=== PATIENT | female | born 1960 | race Caucasian/White ===

== ENCOUNTER → 2016-07-19 | Outpatient (CLI) | payer MEDICARE, MEDICAID | LOC: RAD 13:15 | PROVIDERS: ATTEND Internal Medicine | DX: R07.9 Chest pain, unspecified (principal); R91.8 Other nonspecific abnormal finding of lung field; R63.4 Abnormal weight loss; K59.00 Constipation, unspecified; K57.30 Diverticulosis of large intestine without perforation or abscess without bleeding | CPT/HCPCS: 71260; 74177 ==

== ENCOUNTER → 2016-08-13 | Outpatient (CLI) | payer MEDICARE, MEDICAID | LOC: RAD 15:27 | PROVIDERS: ATTEND Internal Medicine | DX: R91.1 Solitary pulmonary nodule (principal); D38.6 Neoplasm of uncertain behavior of respiratory organ, unspecified | CPT/HCPCS: 78815; A9552 ==

== ENCOUNTER 2017-01-11 12:07 | Emergency (ER) | payer MEDICARE, OTHER, MEDICAID ==
[2017-01-11] MEDS ORDERED: ONDANSETRON HCL INJ/PF 4 MG/2 ML SDV IV ONE (13:11)
[2017-01-11] MEDS ORDERED: LORAZEPAM INJ 2 MG/1 ML VIAL IV ONE (13:28)
--- NOTE | 2017-01-11 13:28 | RADIOLOGY REPORT (SQ) ---
EXAM DESCRIPTION: CHEST SINGLE VIEW COMPLETED DATE/TIME: 01/11/2017 12:55 pm REASON FOR STUDY: weakness, cp, recent mass removed from lung COMPARISON: CT 07/19/2016 chest x-ray 02/16/2015 EXAM PARAMETERS: NUMBER OF VIEWS: One view. TECHNIQUE: Single frontal radiographic view of the chest acquired. RADIATION DOSE: NA LIMITATIONS: None. FINDINGS: LUNGS AND PLEURA: There is slight haziness in the right base and the right hemidiaphragm i s indistinct. No mass. The nodules described on the CT scan are not evident on the radiograph. MEDIASTINUM AND HILAR STRUCTURES: An irregular, radiopaque foreign body is projected over the trachea at the level of the top of the aortic arch. HEART AND VASCULAR STRUCTURES: Heart normal in size. Normal vasculature. BONES: There is significant dextroscoliosis in the mid thoracic spine. HARDWARE: None in the chest. OTHER: No other significant finding. IMPRESSION: 1. An infiltrate, small pleural effusion, or atelectasis cannot be excluded in right lo wer chest. 2. Scoliosis. TECHNICAL DOCUMENTATION: JOB ID: [id number]
--- NOTE | 2017-01-11 13:28 | ER Document Report ---
ED Cardiac - General Chief Complaint: Chest Pain Stated Complaint: WEAKNESS Time Seen by Provider: 01/11/17 12:27 Mode of Arrival: Ambulatory Information source: Patient Notes: 56-year-old female who presents to the ER via EMS today for generalized weakness for chest pain today only. Patient had her right lower lobe of her lung removed on November 23 due to lung cancer but continues to smoke daily. Patient states that she has a history of anxiety and that "this feels like panic attack" but that she is no longer on her Xanax that her primary care provider was prescribing for her. She has been told to follow-up with pain management but has not done so yet. She currently is nothing for anxiety. She denies any calf pain or history of blood clots. She is not on chemotherapy. TRAVEL OUTSIDE OF THE [place] IN LAST 30 DAYS: No - Related Data Allergies/Adverse Reactions: No Known Allergies Allergy (Verified 08/26/15 16:33) Past Medical History - General Information source: Patient - Social History Smoking Status: Current Every Day Smoker Chew tobacco use (# tins/day): No Frequency of alcohol use: Occasional Drug Abuse: None Family History: Reviewed & Not Pertinent - Past Medical History Cardiac Medical History: Denies: Hx Congestive Heart Failure, Hx Coronary Artery Disease, Hx Heart Attack, Hx Hypertension, Hx Heart Murmur Pulmonary Medical History: Reports: Hx COPD Denies: Hx Asthma - I DONT KNOW, Hx Bronchitis, Hx Pneumonia, Hx Tuberculosis Neurological Medical History: Denies: Hx Cerebrovascular Accident, Hx Seizures GI Medical History: Reports: Hx Gastroesophageal Reflux Disease. Denies: Hx Hepatitis, Hx Hiatal Hernia, Hx Ulcer Musculoskeltal Medical History: Denies Hx Arthritis Psychiatric Medical History: Reports: Hx Anxiety, Hx Attention Deficit Hyperactivity Disorder Infectious Medical History: Denies: Hx Hepatitis Past Surgical History: Reports: Hx Appendectomy, Hx Hysterectomy. Denies: Hx Mastectomy, Hx Open Heart Surgery, Hx Pacemaker - Immunizations Hx Diphtheria, Pertussis, Tetanus Vaccination: Yes Review of Systems - Review of Systems Constitutional: No symptoms reported EENT: No symptoms reported Cardiovascular: See HPI Respiratory: See HPI Gastrointestinal: No symptoms reported Genitourinary: No symptoms reported Female Genitourinary: No symptoms reported Musculoskeletal: No symptoms reported Skin: No symptoms reported Hematologic/Lymphatic: No symptoms reported Neurological/Psychological: No symptoms reported Physical Exam - Vital signs Vitals: Resp Pulse Ox 17 100 01/11/17 12:28 01/11/17 12:28 - Notes Notes: PHYSICAL EXAMINATION: GENERAL: Incredibly anxious, in no acute distress. HEAD: Atraumatic, normocephalic. EYES: Pupils equal round and reactive to light, extraocular movements intact, sclera anicteric, conjunctiva are normal. Airway patent NECK: Normal range of motion, supple without lymphadenopathy LUNGS: CTAB and equal. No wheezes rales or rhonchi. HEART: Regular rate and rhythm without murmurs ABDOMEN: Soft, no tenderness. No guarding, no rebound BACK: no vertebral tenderness, normal ROM GI/: no CVA tenderness EXTREMITIES: Normal range of motion, no pitting edema. No cyanosis. NEUROLOGICAL: Cranial nerves grossly intact. Normal sensory/motor exams. PSYCH: very anxious SKIN: Warm, Dry, normal turgor, no rashes or lesions noted Course - Re-evaluation Re-evalutation: 01/11/17 14:46 Feels better after Ativan. Lab work is unremarkable today including a normal chest x-ray, normal cardiac enzymes, EKG revealing normal sinus rhythm at a rate of 63 bpm with no evidence of ischemia. I believe that the patient's anxiety. I have advised to follow-up with her primary care provider. - Vital Signs Vital signs: Temp Pulse Resp BP Pulse Ox 16 116/91 H 98 01/11/17 13:12 01/11/17 12:32 01/11/17 13:12 - Laboratory Result Diagrams: 01/11/17 13:37 01/11/17 13:37 Laboratory results interpreted by me: 01/11/17 01/11/17 01/11/17 13:10 13:37 13:37 APTT 38.6 H Chloride 111 H Carbon Dioxide 21 L AST 13 L Urine Ketones 20 H Discharge - Discharge Clinical Impression: Anxiety Chest pain Qualifiers: Chest pain type: unspecified Qualified Code(s): R07.9 - Chest pain, unspecified Condition: Stable Disposition: HOME, SELF-CARE Additional Instructions: Return immediately for any new or worsening symptoms. Follow up with primary care provider, call tomorrow to make followup appointment. Prescriptions: Hydroxyzine HCl [Atarax 50 mg Tablet] 50 mg PO Q8 PRN #30 tablet PRN Reason:
[2017-01-11 13:37] LABS: APPEARANCE,URINE CLEAR; BILIRUBIN,URINE NEGATIVE (NEGATIVE); GLUCOSE, URINE NEGATIVE (NEGATIVE); KETONES,URINE 20 mg/dL (NEGATIVE); LEUKOCYTE ESTERASE,URINE NEGATIVE (NEGATIVE); NITRITE,URINE NEGATIVE (NEGATIVE); PROTEIN,URINE NEGATIVE (NEGATIVE); URINE SPECIFIC GRAVITY 1.012; UROBILINOGEN,URINE NEGATIVE mg/dL (<2.0)
[2017-01-11 13:45] LABS: ABSOLUTE BASOPHILS # (AUTO) 0.1 10^3/uL (0.0-0.2); ABSOLUTE LYMPHOCYTES (AUTO) 1.6 10^3/uL (0.5-4.7); ABSOLUTE MONOCYTES (AUTO) 0.5 10^3/uL (0.1-1.4); ABSOLUTE NEUT (AUTO) 5.5 10^3/uL (1.7-8.2); BASOPHILS % (AUTO) 0.9 % (0-2); EOSINOPHILS % (AUTO) 0.4 % (0-6); HEMATOCRIT 37.2 % (36.0-47.0); HEMOGLOBIN 12.6 g/dL (12.0-15.5); HGB HCT DIFFERENCE 0.6; LYMPHOCYTES % (AUTO) 21.3 % (13-45); MEAN CORPUSCULAR HEMOGLOBIN 29.3 pg (27.0-33.4); MEAN CORPUSCULAR HGB CONC 33.8 g/dL (32.0-36.0); MEAN CORPUSCULAR VOLUME 87 fl (80-97); RED BLOOD COUNT 4.28 10^6/uL (3.72-5.28); RED CELL DISTRIBUTION WIDTH 13.8 % (11.5-14.0); SEGMENTED NEUTROPHILS % (AUTO) 71.4 % (42-78); WHITE BLOOD COUNT 7.6 10^3/uL (4.0-10.5)
[2017-01-11 13:53] LABS: PROTHROMBIN TIME 13.7 SEC (11.4-15.4)
[2017-01-11 13:54] LABS: PARTIAL THROMBOPLASTIN TIME 38.6 SEC (23.5-35.8)
[2017-01-11 14:00] LABS: ALANINE AMINOTRANSFERASE 19 U/L (9-52); ALBUMIN 3.9 g/dL (3.5-5.0); ALKALINE PHOSPHATASE 97 U/L (38-126); ANION GAP 10 (5-19); ASPARTATE AMINO TRANSFERASE 13 U/L (14-36); BILIRUBIN,DIRECT 0.3 mg/dL (0.0-0.4); BILIRUBIN,TOTAL 0.7 mg/dL (0.2-1.3); BLOOD UREA NITROGEN 8 mg/dL (7-20); CALCIUM 8.9 mg/dL (8.4-10.2); CARBON DIOXIDE 21 mmol/L (22-30); CHLORIDE 111 mmol/L (98-107); CREATINE KINASE 41 U/L (30-135); CREATININE RESULT 0.52 mg/dL (0.52-1.25); GLUCOSE 104 mg/dL (75-110); POTASSIUM 3.9 mmol/L (3.6-5.0); SODIUM 141.6 mmol/L (137-145); TOTAL PROTEIN 6.8 g/dL (6.3-8.2)
[2017-01-11 14:12] LABS: CREATINE KINASE MB 0.67 ng/mL (<4.55); TROPONIN I < 0.012 ng/mL
[2017-01-11] MEDS ORDERED: ALPRAZOLAM 0.5 MG TABLET PO ONE (14:55)
[2017-01-11] MEDS ORDERED: PROMETHAZINE HCL 25 MG TABLET PO ONE (15:14)
[2017-01-11 16:02] VITALS: BP 135/77
[2017-01-11 16:52] LABS: URINE BARBITURATES SCREEN NEGATIVE; URINE METHADONE SCREEN NEGATIVE; URINE OPIATES LOW NEGATIVE; URINE PHENCYCLIDINE SCREEN NEGATIVE
--- NOTE | 2017-01-11 19:53 | EKG REPORT ---
SEVERITY:- NORMAL ECG - SINUS RHYTHM : Confirmed by: Pippa Stephens 11-Jan-2017 19:53:02
== END 2017-01-11 16:02 | disposition home or self-care (01) ==
LOC: ER 12:07
DX: F41.9 Anxiety disorder, unspecified (principal); R07.9 Chest pain, unspecified; R53.1 Weakness; J44.9 Chronic obstructive pulmonary disease, unspecified; F17.200 Nicotine dependence, unspecified, uncomplicated; Z85.118 Personal history of other malignant neoplasm of bronchus and lung; Z90.2 Acquired absence of lung [part of]
CPT/HCPCS: 93005; 99285; 96374; 96375; 36415; 82553; 80307 ×2; 82550; 85025; 85610; 85730; 80053; 81001; 84484; 71010; 93010; A9270 ×2; J2060; J2405

== ENCOUNTER → 2017-02-22 | Outpatient (CLI) | payer MEDICARE, MEDICAID ==
[2017-02-22 18:12] LABS: ABSOLUTE BASOPHILS # (AUTO) 0.1 10^3/uL (0.0-0.2); ABSOLUTE EOSINOPHILS # (AUTO) 0.2 10^3/uL (0.0-0.6); ABSOLUTE LYMPHOCYTES (AUTO) 3.4 10^3/uL (0.5-4.7); ABSOLUTE MONOCYTES (AUTO) 0.5 10^3/uL (0.1-1.4); ABSOLUTE NEUT (AUTO) 4.1 10^3/uL (1.7-8.2); BASOPHILS % (AUTO) 0.8 % (0-2); EOSINOPHILS % (AUTO) 2.5 % (0-6); HEMATOCRIT 36.9 % (36.0-47.0); HEMOGLOBIN 12.7 g/dL (12.0-15.5); HGB HCT DIFFERENCE 1.2; LYMPHOCYTES % (AUTO) 41.3 % (13-45); MEAN CORPUSCULAR HEMOGLOBIN 29.6 pg (27.0-33.4); MEAN CORPUSCULAR HGB CONC 34.5 g/dL (32.0-36.0); MEAN CORPUSCULAR VOLUME 86 fl (80-97); MONOCYTES % (AUTO) 6.4 % (3-13); RED CELL DISTRIBUTION WIDTH 14.5 % (11.5-14.0); WHITE BLOOD COUNT 8.3 10^3/uL (4.0-10.5)
[2017-02-22 19:01] LABS: THYROID STIMULATING HORMONE 0.11 uIU/mL (0.47-4.68)
== END ==
LOC: OD 17:31
PROVIDERS: ATTEND Internal Medicine
DX: E03.9 Hypothyroidism, unspecified (principal)
CPT/HCPCS: 36415; 84439; 84443; 85025

== ENCOUNTER 2017-02-28 13:45 | Emergency (ER) | payer MEDICARE, MEDICAID ==
[2017-02-28] MEDS ORDERED: DIPH/PERTUSS(ACELL)/TETANUS VAC/PF 0.5 ML SYR (>=10YO) IM ONE (14:07)
[2017-02-28] MEDS ORDERED: HYDROCODONE/ACETAMINOPHEN 5-325 MG TABLET PO ONE (14:07)
--- NOTE | 2017-02-28 14:07 | ER Document Report ---
ED General - General Stated Complaint: MOUTH INJURY Time Seen by Provider: 02/28/17 14:06 Mode of Arrival: Ambulatory Information source: Patient Notes: 56 yr old female who stepped on a garden tool bare foot and had the prongs in her foot then the handle hit her in the face last night TRAVEL OUTSIDE OF THE [place] IN LAST 30 DAYS: No - HPI Onset: Yesterday Onset/Duration: Sudden Quality of pain: Achy Severity: Mild Pain Level: 1 Associated symptoms: None Exacerbated by: Denies Relieved by: Denies Similar symptoms previously: No Recently seen / treated by doctor: Yes - sent in by urgent - Related Data Allergies/Adverse Reactions: No Known Allergies Allergy (Verified 08/26/15 16:33) Past Medical History - Social History Smoking Status: Current Every Day Smoker Cigarette use (# per day): Yes Chew tobacco use (# tins/day): No Smoking Education Provided: No Family History: Reviewed & Not Pertinent - Past Medical History Cardiac Medical History: Denies: Hx Congestive Heart Failure, Hx Coronary Artery Disease, Hx Heart Attack, Hx Hypertension, Hx Heart Murmur Pulmonary Medical History: Reports: Hx COPD Denies: Hx Asthma - I DONT KNOW, Hx Bronchitis, Hx Pneumonia, Hx Tuberculosis Neurological Medical History: Denies: Hx Cerebrovascular Accident, Hx Seizures GI Medical History: Reports: Hx Gastroesophageal Reflux Disease. Denies: Hx Hepatitis, Hx Hiatal Hernia, Hx Ulcer Musculoskeltal Medical History: Denies Hx Arthritis Psychiatric Medical History: Reports: Hx Anxiety, Hx Attention Deficit Hyperactivity Disorder Infectious Medical History: Denies: Hx Hepatitis Past Surgical History: Reports: Hx Appendectomy, Hx Hysterectomy. Denies: Hx Mastectomy, Hx Open Heart Surgery, Hx Pacemaker - Immunizations Hx Diphtheria, Pertussis, Tetanus Vaccination: Yes Review of Systems - Review of Systems Notes: REVIEW OF SYSTEMS: CONSTITUTIONAL : Denies fever, chills, or sweats. Denies recent illness. EENT: Denies eye, ear, throat, or mouth pain or symptoms. Denies nasal or sinus congestion or discharge. Denies throat, tongue, or mouth swelling or difficulty swallowing. CARDIOVASCULAR: Denies chest pain. Denies palpitations or racing or irregular heart beat. Denies ankle edema. RESPIRATORY: Denies cough, cold, or chest congestion. Denies shortness of breath, difficulty breathing, or wheezing. GASTROINTESTINAL: Denies abdominal pain or distention. Denies nausea, vomiting , or diarrhea. Denies blood in vomitus, stools, or per rectum. Denies black, tarry stools. Denies constipation. GENITOURINARY: Denies difficulty urinating, painful urination, burning, frequency, blood in urine, or discharge. FEMALE GENITOURINARY: Denies vaginal bleeding, heavy or abnormal periods, irregular periods. Denies vaginal discharge or odor. MUSCULOSKELETAL: Denies back or neck pain or stiffness. Denies joint pain or swelling. SKIN: admits to puncture to the foot HEMATOLOGIC : Denies easy bruising or bleeding. LYMPHATIC: Denies swollen, enlarged glands. NEUROLOGICAL: Denies confusion or altered mental status. Denies passing out or loss of consciousness. Denies dizziness or lightheadedness. Denies headache. Denies weakness or paralysis or loss of use of either side. Denies problems with gait or speech. Denies sensory loss, numbness, or tingling. Denies seizures. PSYCHIATRIC: Denies anxiety or stress. Denies depression, suicidal ideation, or homicidal ideation. ALL OTHER SYSTEMS REVIEWED AND NEGATIVE. PHYSICAL EXAMINATION: GENERAL: Well-appearing, well-nourished and in no acute distress. HEAD: Atraumatic, normocephalic. EYES: Pupils equal round and reactive to light, extraocular movements intact, conjunctiva are normal. ENT: no dental trauma . NECK: Normal range of motion, supple without lymphadenopathy LUNGS: Breath sounds clear to auscultation bilaterally and equal. No wheezes rales or rhonchi. HEART: Regular rate and rhythm without murmurs ABDOMEN: Soft, nontender, nondistended abdomen. No guarding, no rebound. No masses appreciated. Female : deferred Musculoskeletal: Normal range of motion, no pitting or edema. No cyanosis. NEUROLOGICAL: Cranial nerves grossly intact. Normal speech, normal gait. Normal sensory, motor exams PSYCH: Normal mood, normal affect. SKIN: 3 small puncture wounds 1 day old of the foot , contusion to the bottom lip and upper lip, no laceration noted Dictation was performed using [employer] recognition software Course - Re-evaluation Re-evalutation: 02/28/17 14:15 Physical examination noted no significant abnormality except for superficial contusions and puncture wounds, tetanus will be updated patient will be started on antibiotics given the multiple punctures. She does not require any repairs or imaging at this time Tetanus will be updated patient will be discharged home After performing a Medical Screening Examination, I estimate there is LOW risk for OPEN FRACTURE, COMPARTMENT SYNDROME, TENDON RUPTURE, ACUTE NEUROVASCULAR INJURY, or RETAINED FOREIGN BODY, thus I consider the discharge disposition reasonable. Also, there is no evidence or peritonitis, sepsis, or toxicity. I have reevaluated this patient multiple times and no significant life threatening changes are noted. The patient and I have discussed the diagnosis and risks, and we agree with discharging home with close follow-up with the understanding that symptoms and presentations can change. We also discussed returning to the Emergency Department immediately if new or worsening symptoms occur. We have discussed the symptoms which are most concerning (e.g., changing or worsening pain, fever, numbness, weakness, cool or painful digits) that necessitate immediate return. Discharge - Discharge Clinical Impression: Facial injury Qualifiers: Encounter type: initial encounter Qualified Code(s): S09.93XA - Unspecified injury of face, initial encounter Puncture wound of foot Qualifiers: Encounter type: initial encounter Laterality: right Qualified Code(s): S91.331A - Puncture wound without foreign body, right foot, initial encounter Condition: Stable Disposition: HOME, SELF-CARE Instructions: Puncture Wound ([facility]) Additional Instructions: Follow up with your physician tomorrow for further care or return to the ED IMMEDIATELY if symptoms worsen or new concerns occur. If you cannot afford to follow up with your primary care physician a list of low cost clinics have been provided at the end of your discharge papers as well. Prescriptions: Cephalexin Monohydrate [Keflex 500 mg Capsule] 500 mg PO QID #40 capsule Hydrocodone/Acetaminophen [Vanlue 5-325 mg Tablet] 1 tab PO Q6 #10 tablet
[2017-02-28 14:18] VITALS: BP 122/47
== END 2017-02-28 14:36 | disposition home or self-care (01) ==
LOC: ER 13:45
DX: S91.331A Puncture wound without foreign body, right foot, initial encounter (principal); S00.531A Contusion of lip, initial encounter; W27.8XXA Contact with other nonpowered hand tool, initial encounter; F17.210 Nicotine dependence, cigarettes, uncomplicated; J44.9 Chronic obstructive pulmonary disease, unspecified; Z23 Encounter for immunization
CPT/HCPCS: 99282; 90471; 90715; A9270

== ENCOUNTER 2017-10-31 11:00 | Day surgery (SDC) | payer MEDICARE, MEDICAID ==
[~2017-10-31 11:00] MED LIST: PROPOFOL INJ 200 MG/20 ML VIAL IV ONE
[2017-10-31] MEDS ORDERED: ONABOTULINUMTOXINA INJ/PF 100 UNIT SDV IM ONE ×2 (12:00)
[2017-10-31 12:42] VITALS: BP 107/60
--- NOTE | 2017-10-31 13:24 | Operative Report ---
Operative Report DATE OF SURGERY: 10/31/17 Operative Report: The risks benefits and alternatives of the procedure explained to the patient in detail and informed consent is obtained.A GIF Olympus video scope was inserted into the patient's mouth and hypopharynx ,the esophagus is identified intubated and insufflated, the scope was then advanced through the esophagus stomach and duodenum, retroflexion maneuver is done ,the esophagus stomach and first and second portions of the duodenum examined PREOPERATIVE DIAGNOSIS: Nausea vomiting, gastroparesis POSTOPERATIVE DIAGNOSIS: Severe erosive esophagitis. Gastritis status post biopsy. Hiatal hernia. Lack of peristalsis in the stomach with residual food material status post Botox injection at the gastric outlet OPERATION: EGD with submucosal injection of Botox. EGD with biopsy to rule out Helicobacter pylori SURGEON: EVY BALBUENA ANESTHESIA: LMAC TISSUE REMOVED OR ALTERED: As noted above. COMPLICATIONS: None. ESTIMATED BLOOD LOSS: None. INTRAOPERATIVE FINDINGS: As noted above. PROCEDURE: Patient tolerated the procedure well. No immediate postprocedure complications are noted. Patient discharged in good condition. Discharge date 10/31/2017. Discharge diet: Regular. Discharge activity: Regular. 2-3 week follow-up to discuss findings. We will wait on biopsies. Patient is instructed call the office or proceed to the emergency room should there be any further problems or questions.
== END 2017-10-31 12:28 | disposition home or self-care (01) ==
LOC: END 11:00
PROVIDERS: ATTEND Internal Medicine Gastroenterology
DX: K92.1 Melena (principal); K29.50 Unspecified chronic gastritis without bleeding; K44.9 Diaphragmatic hernia without obstruction or gangrene; K20.9 Esophagitis, unspecified; K31.84 Gastroparesis; R63.4 Abnormal weight loss; F17.210 Nicotine dependence, cigarettes, uncomplicated; Z79.899 Other long term (current) drug therapy; Z68.1 Body mass index [BMI] 19.9 or less, adult
CPT/HCPCS: 43236; 43239; 88305 ×2; J2704; J0585; 731

== ENCOUNTER → 2017-11-23 | Outpatient (CLI) | payer MEDICARE, MEDICAID ==
--- NOTE | 2017-11-23 17:21 | RADIOLOGY REPORT (SQ) ---
EXAM DESCRIPTION: CHEST 2 VIEWS COMPLETED DATE/TIME: 11/23/2017 5:10 pm REASON FOR STUDY: MRI SCREENING FB COMPARISON: 02/16/2015, 01/11/2017 EXAM PARAMETERS: NUMBER OF VIEWS: two views TECHNIQUE: Digital Frontal and Lateral radiographic views of the chest acquired. RADIATION DOSE: NA LIMITATIONS: none FINDINGS: LUNGS AND PLEURA: Surgical milvia post partial resection right lower lobe. There is trac e right pleural fluid or pleural thickening in the lateral and posterior costophrenic sulcus. Lungs are free of focal infiltrates. No pneumothorax. MEDIASTINUM AND HILAR STRUCTURES: No masses or contour abnormalities. HEART AND VASCULAR STRUCTURES: Heart normal size. No evidence for failure. BONES: Profound scoliosis convex rightward thoracic HARDWARE: There are lung parenchymal milvia along the right lung base. There is a 5 x 3 mm metallic foreign body in the upper mediastinum which is new compared to 2014 and unchanged compared to 2016. This is of unknown composition. MRI was canceled today. OTHER: No other significant finding. IMPRESSION: Postsurgical changes right hemithorax. There is a metallic foreign body in the upper me diastinum which is of unknown metallic composition. No MRI was performed today. TECHNICAL DOCUMENTATION: JOB ID: [id number] [employer]- All Rights Reserved Reading location - IP/workstation name: [email or web address]
== END ==
LOC: RAD 17:00
PROVIDERS: ATTEND Anesthesiology
DX: M79.5 Residual foreign body in soft tissue (principal); M41.84 Other forms of scoliosis, thoracic region
CPT/HCPCS: 71046

== ENCOUNTER 2017-11-28 11:00 | Day surgery (SDC) | payer MEDICARE, MEDICAID ==
[2017-11-28] MEDS ORDERED: PROPOFOL INJ 200 MG/20 ML VIAL IV ONE (11:40)
--- NOTE | 2017-11-28 11:57 | Operative Report ---
Operative Report DATE OF SURGERY: 11/28/17 Operative Report: The risks, benefits and alternatives of the procedure including risks of bleeding, perforation requiring surgery are explained to the patient in detail and informed consent is obtained. Patient is brought back to the endoscopy suite and placed in the left, lateral decubital position. Timeout was called. Propofol medications administered. A rectal examination is done which did not reveal any masses, tears or fissures. An Olympus videoscope was inserted into the patient's rectum. The scope was then carefully advanced all the way to the cecum. The cecum was identified by the usual anatomical landmarks including the ileocecal valve as well as the appendiceal office. I intubated the terminal ileum for confirmation. The scope was then sequentially pulled back via the various segments of the colon including the ascending colon, hepatic flexure, transverse colon, splenic flexure, descending colon and finally into the rectosigmoid portions of the colon. Prep is good. Retroflexion maneuver is performed. PREOPERATIVE DIAGNOSIS: Weight loss, colorectal cancer screening POSTOPERATIVE DIAGNOSIS: 3 polyps. 2 in the proximal transverse colon. One was ablated in situ the other removed via snare polypectomy and tissue was able to be retrieved. The third polyp was noted in the area of the sigmoid and removed via snare polypectomy and retrieved. Diverticulosis. Internal hemorrhoids OPERATION: Colonoscopy with snare polypectomy SURGEON: EVY BALBUENA ANESTHESIA: LMAC TISSUE REMOVED OR ALTERED: As noted above. COMPLICATIONS: None. ESTIMATED BLOOD LOSS: None. INTRAOPERATIVE FINDINGS: As noted above. PROCEDURE: Patient tolerated the procedure well. No immediate postprocedure complications are noted. Patient discharged in good condition. Discharge date 11/28/2017. Discharge diet: Regular. Discharge activity: Regular. 2-3 week follow-up to discuss findings. Patient is instructed to call the office or proceed to the emergency room should there be any further problems or questions. We will wait on pathology. 3-5 year surveillance colonoscopy.
[2017-11-28 12:24] VITALS: BP 138/93
== END 2017-11-28 12:22 | disposition home or self-care (01) ==
LOC: END 11:00
PROVIDERS: ATTEND Internal Medicine Gastroenterology
DX: D12.3 Benign neoplasm of transverse colon (principal); D12.5 Benign neoplasm of sigmoid colon; K31.84 Gastroparesis; R63.4 Abnormal weight loss; F41.1 Generalized anxiety disorder; F33.9 Major depressive disorder, recurrent, unspecified; Z87.891 Personal history of nicotine dependence; Z79.891 Long term (current) use of opiate analgesic; Z79.899 Other long term (current) drug therapy; Z68.1 Body mass index [BMI] 19.9 or less, adult
CPT/HCPCS: 45385; 88305 ×2; J2704; 811

== ENCOUNTER → 2017-12-19 | Outpatient (CLI) | payer MEDICARE, MEDICAID ==
--- NOTE | 2017-12-19 16:34 | RADIOLOGY REPORT (SQ) ---
EXAM DESCRIPTION: CT CERVICAL SPINE WITHOUT COMPLETED DATE/TIME: 12/19/2017 3:54 pm REASON FOR STUDY: RADICULOPATHY,CERVICAL REGION M54.12 RADICULOPATHY, CERVICAL REGION COMPARISON: None. TECHNIQUE: Axial images acquired through the cervical spine without intravenous contrast. Images re viewed with lung, soft tissue and bone windows. Reconstructed coronal and sagittal MPR images review ed. Images stored on PACS. All CT scanners at this facility use dose modulation, iterative reconstruction, and/or weight based d osing when appropriate to reduce radiation dose to as low as reasonably achievable (ALARA). [facility]: Dose Right [facility]: CareDose [facility]: Dose Right [facility]: Teradose 4D [facility]: [employer] RADIATION DOSE: CT Rad equipment meets quality standard of care and radiation dose reduction techniq ues were employed. CTDIvol: 11.0 mGy. DLP: 262 mGy-cm. mGy. LIMITATIONS: None. FINDINGS: ALIGNMENT: Anatomic. MINERALIZATION: Normal. VERTEBRAL BODIES: No fractures or dislocation. DISCS: Degenerative disc disease C4-5, C5-6, C6-7 with uncovertebral osteophytes and disc space narro wing. FACETS, LATERAL MASSES, POSTERIOR ELEMENTS: No fractures. No dislocation. No acute findings. HARDWARE: None in the spine. VISUALIZED RIBS: No fractures. LUNG APICES AND SOFT TISSUES: No significant or acute findings. OTHER: No other significant finding. IMPRESSION: Multilevel degenerative disc disease with uncovertebral osteophytes and disc space narro wing. TECHNICAL DOCUMENTATION: JOB ID: [id number] Quality ID # [id number]: Final reports with documentation of one or more dose reduction techniques (e.g., Au tomated exposure control, adjustment of the mA and/or kV according to patient size, use of iterative reconstruction technique) 2010 [employer]- All Rights Reserved Reading location - IP/workstation name: [email or web address]
== END ==
LOC: RAD 15:46
PROVIDERS: ATTEND Anesthesiology
DX: M50.123 Cervical disc disorder at C6-C7 level with radiculopathy (principal)
CPT/HCPCS: 72125

== ENCOUNTER 2018-06-26 15:48 | Emergency (ER) | payer MEDICARE, MEDICAID ==
[2018-06-26] MEDS ORDERED: ONDANSETRON HCL INJ/PF 4 MG/2 ML SDV IV ONE (16:13)
[2018-06-26] MEDS ORDERED: NORMAL SALINE 1000 ML 1,000 ML IV ONE (16:13)
--- NOTE | 2018-06-26 16:16 | ER Document Report ---
ED Medical Screen (RME) - General Chief Complaint: General Weakness Stated Complaint: VOMITING/DIZZINESS Time Seen by Provider: 06/26/18 16:05 TRAVEL OUTSIDE OF THE [place] IN LAST 30 DAYS: No - HPI Notes: 06/26/18 16:13 Patient is a 57-year-old female that presents to the emergency department for chief complaint of malaise nausea and vomiting. Patient reports increased fatigue over the past few days. She states since having lung cancer surgery last year she has had weight loss, increased fatigue and episodes of nausea and vomiting. She states that it seems to be getting worse. She denies any fever, chills. She does endorse some mild urinary frequency but denies dysuria. She had some mild diffuse abdominal cramping yesterday which has now resolved. She denies any diarrhea, cough and chest pain.. ROS: GENERAL: Denies fever of chills CV: Denies chest pain PHYSICAL EXAMINATION: GENERAL: Well-appearing, well-nourished and in no acute distress. HEAD: Atraumatic, normocephalic. EYES: Pupils equal round extraocular movements intact, conjunctiva are normal. ENT: Nares patent NECK: Normal range of motion LUNGS: No respiratory distress Musculoskeletal: Normal range of motion NEUROLOGICAL: Normal speech, normal gait. PSYCH: Normal mood, normal affect. MDM: Patient seen and examined for rapid initial assessment. Vital signs reviewed. A comprehensive ED assessment and evaluation of the patient, analysis of test results and completion of the medical decision making process will be conducted by additional ED providers. - Related Data Allergies/Adverse Reactions: No Known Allergies Allergy (Verified 11/28/17 11:07) Past Medical History - Social History Frequency of alcohol use: None Drug Abuse: None - Past Medical History Cardiac Medical History: Denies: Hx Congestive Heart Failure, Hx Coronary Artery Disease, Hx Heart Attack, Hx Hypertension, Hx Heart Murmur Pulmonary Medical History: Reports: Hx COPD Denies: Hx Asthma, Hx Bronchitis, Hx Pneumonia, Hx Tuberculosis Neurological Medical History: Denies: Hx Cerebrovascular Accident, Hx Seizures Renal/ Medical History: Denies: Hx Peritoneal Dialysis GI Medical History: Reports: Hx Gastroesophageal Reflux Disease. Denies: Hx Hepatitis, Hx Hiatal Hernia, Hx Ulcer Musculoskeltal Medical History: Reports Hx Arthritis - OSTEO Psychiatric Medical History: Reports: Hx Anxiety, Hx Attention Deficit Hyperactivity Disorder Infectious Medical History: Denies: Hx Hepatitis Past Surgical History: Reports: Hx Appendectomy, Hx Hysterectomy. Denies: Hx Mastectomy, Hx Open Heart Surgery, Hx Pacemaker - Immunizations Hx Diphtheria, Pertussis, Tetanus Vaccination: Yes Physical Exam - Vital signs Vitals: Temp Pulse Resp BP Pulse Ox 97.9 F 105 H 18 115/89 H 98 06/26/18 15:55 06/26/18 15:55 06/26/18 15:55 06/26/18 15:55 06/26/18 15:55 Course - Vital Signs Vital signs: Temp Pulse Resp BP Pulse Ox 97.9 F 105 H 18 115/89 H 98 06/26/18 15:55 06/26/18 15:55 06/26/18 15:55 06/26/18 15:55 06/26/18 15:55 Doctor's Discharge - Discharge Referrals: CHANDRA SHAW MD [Primary Care Provider] - Follow up as needed
[2018-06-26 17:02] LABS: ABSOLUTE BASOPHILS # (AUTO) 0.1 10^3/uL (0.0-0.2); ABSOLUTE EOSINOPHILS # (AUTO) 0.2 10^3/uL (0.0-0.6); ABSOLUTE LYMPHOCYTES (AUTO) 1.8 10^3/uL (0.5-4.7); ABSOLUTE MONOCYTES (AUTO) 0.6 10^3/uL (0.1-1.4); ABSOLUTE NEUT (AUTO) 3.6 10^3/uL (1.7-8.2); BASOPHILS % (AUTO) 0.9 % (0-2); EOSINOPHILS % (AUTO) 2.8 % (0-6); HEMOGLOBIN 12.5 g/dL (12.0-15.5); LYMPHOCYTES % (AUTO) 28.7 % (13-45); MEAN CORPUSCULAR HEMOGLOBIN 26.1 pg (27.0-33.4); MEAN CORPUSCULAR HGB CONC 33.9 g/dL (32.0-36.0); MEAN CORPUSCULAR VOLUME 77 fl (80-97); MONOCYTES % (AUTO) 9.7 % (3-13); PLATELET COUNT 374 10^3/uL (150-450); RED BLOOD COUNT 4.81 10^6/uL (3.72-5.28); RED CELL DISTRIBUTION WIDTH 16.8 % (11.5-14.0); SEGMENTED NEUTROPHILS % (AUTO) 57.9 % (42-78); TOTAL CELLS COUNTED % (AUTO) 100 %; WHITE BLOOD COUNT 6.3 10^3/uL (4.0-10.5)
[2018-06-26 17:21] LABS: ALANINE AMINOTRANSFERASE 9 U/L (9-52); ALBUMIN 4.5 g/dL (3.5-5.0); ALKALINE PHOSPHATASE 81 U/L (38-126); ANION GAP 9 (5-19); ASPARTATE AMINO TRANSFERASE 17 U/L (14-36); BILIRUBIN,DIRECT 0.3 mg/dL (0.0-0.4); BILIRUBIN,TOTAL 0.4 mg/dL (0.2-1.3); BLOOD UREA NITROGEN 15 mg/dL (7-20); CALCIUM 10.3 mg/dL (8.4-10.2); CARBON DIOXIDE 27 mmol/L (22-30); CHLORIDE 103 mmol/L (98-107); GLUCOSE 113 mg/dL (75-110); LIPASE 60.3 U/L (23-300); POTASSIUM 4.6 mmol/L (3.6-5.0); SODIUM 138.9 mmol/L (137-145); TOTAL PROTEIN 7.3 g/dL (6.3-8.2)
[2018-06-26 17:42] LABS: APPEARANCE,URINE SLIGHTLY-CLOUDY; BILIRUBIN,URINE MODERATE (NEGATIVE); COLOR,URINE AMBER; GLUCOSE, URINE NEGATIVE (NEGATIVE); KETONES,URINE TRACE mg/dL (NEGATIVE); LEUKOCYTE ESTERASE,URINE NEGATIVE (NEGATIVE); NITRITE,URINE NEGATIVE (NEGATIVE); PROTEIN,URINE 30 mg/dL (NEGATIVE); URINE SPECIFIC GRAVITY 1.035
[2018-06-26 18:10] VITALS: BP 102/57
[2018-06-26] MEDS ORDERED: SUCRALFATE 1 GM TABLET PO ONE (19:18)
[2018-06-26] MEDS ORDERED: FAMOTIDINE 20 MG TABLET PO ONE (19:18)
[2018-06-26] MEDS ORDERED: ONDANSETRON ODT 4 MG TAB (6 TAB/ER DISP) PO PRN (19:18)
--- NOTE | 2018-06-26 19:24 | ER Document Report ---
ED General - General Chief Complaint: General Weakness Stated Complaint: VOMITING/DIZZINESS Time Seen by Provider: 06/26/18 16:05 Notes: Patient is a 57-year-old female with a past medical history of a prior right lower lobectomy due to localized lung malignancy who presents with concerns of approximately 2 years of anorexia, nausea, difficulty tolerating oral intake and vomiting. Patient notes associated weight loss. States that she has been following with her doctors but not getting any answers or solutions to the symptoms. Nothing is new that prompted her to come to the emergency department today. She does however state that she feels like her symptoms have been getting worse over time. Patient states that she is tired of feeling so ill all the time. She denies any focal abdominal pain. No chest pain or shortness of breath. No fever. She has not had a PET scan since initial diagnosis of the beginning of 2016. She is not currently on any form of chemotherapy or radiation. TRAVEL OUTSIDE OF THE [place] IN LAST 30 DAYS: No - Related Data Allergies/Adverse Reactions: No Known Allergies Allergy (Verified 11/28/17 11:07) Past Medical History - General Information source: Patient - Social History Smoking Status: Current Every Day Smoker Frequency of alcohol use: None Drug Abuse: None Lives with: Family Family History: Reviewed & Not Pertinent Patient has suicidal ideation: No Patient has homicidal ideation: No - Past Medical History Cardiac Medical History: Denies: Hx Congestive Heart Failure, Hx Coronary Artery Disease, Hx Heart Attack, Hx Hypertension, Hx Heart Murmur Pulmonary Medical History: Reports: Hx COPD Denies: Hx Asthma, Hx Bronchitis, Hx Pneumonia, Hx Tuberculosis Neurological Medical History: Denies: Hx Cerebrovascular Accident, Hx Seizures Renal/ Medical History: Denies: Hx Peritoneal Dialysis GI Medical History: Reports: Hx Gastroesophageal Reflux Disease. Denies: Hx Hepatitis, Hx Hiatal Hernia, Hx Ulcer Musculoskeletal Medical History: Reports Hx Arthritis - OSTEO Psychiatric Medical History: Reports: Hx Anxiety, Hx Attention Deficit Hyperactivity Disorder Infectious Medical History: Denies: Hx Hepatitis Past Surgical History: Reports: Hx Appendectomy, Hx Hysterectomy. Denies: Hx Mastectomy, Hx Open Heart Surgery, Hx Pacemaker - Immunizations Hx Diphtheria, Pertussis, Tetanus Vaccination: Yes Review of Systems - Review of Systems Notes: Constitutional: Negative for fever. Positive for weight loss HENT: Negative for sore throat. Eyes: Negative for visual changes. Cardiovascular: Negative for chest pain. Respiratory: Negative for shortness of breath. Gastrointestinal: Positive for nausea, vomiting Genitourinary: Negative for dysuria. Musculoskeletal: Negative for back pain. Skin: Negative for rash. Neurological: Negative for headaches, weakness or numbness. 10 point ROS negative except as marked above and in HPI. Physical Exam - Vital signs Vitals: Temp Pulse Resp BP Pulse Ox 97.9 F 105 H 18 115/89 H 98 06/26/18 15:55 06/26/18 15:55 06/26/18 15:55 06/26/18 15:55 06/26/18 15:55 Interpretation: Tachycardic Notes: PHYSICAL EXAMINATION: GENERAL: Emaciated but in no acute distress HEAD: Atraumatic, normocephalic. EYES: Pupils equal round and reactive to light, extraocular movements intact, sclera anicteric, conjunctiva are normal. ENT: nares patent, oropharynx clear without exudates. Moist mucous membranes. NECK: Normal range of motion, supple without lymphadenopathy LUNGS: Breath sounds clear to auscultation bilaterally and equal. No wheezes rales or rhonchi. HEART: Regular rate and rhythm without murmurs ABDOMEN: Soft, nontender, normoactive bowel sounds. No guarding, no rebound. No masses appreciated. EXTREMITIES: Normal range of motion, no pitting or edema. No cyanosis. NEUROLOGICAL: No focal neurological deficits. Moves all extremities spontaneously and on command. PSYCH: Moderately anxious, tearful SKIN: Warm, Dry, normal turgor, no rashes or lesions noted. Course - Re-evaluation Re-evalutation: 06/26/18 19:19 Patient presents with long-standing nausea, vomiting, difficulty maintaining food intake for at least the past 2 years with associated significant weight loss approximately 22 kg since 2016. The patient states that this all started after having surgery in 2017 when she had a partial lobectomy on the right side at [facility]. She states that she has been told that she has no metastatic disease. Has had multiple scopes with dilations without relief. Here today, vitals are within normal limits although patient is quite emaciated on exam. She has no focal abdominal tenderness. Nothing on labs, history exam to suggest an acute p ancreatitis, biliary pathology, bowel obstruction or bowel perforation. I had a prolonged conversation with the patient and her son at the bedside about the need for a more thorough outpatient workup including likely a PET scan to ensure that the patient has not developed metastatic disease since the last scan that she had almost 2 years ago which could account for her weight loss, but likely a repeat endoscopy, possible motility studies of the esophagus, and if these studies are nondiagnostic or unable to find a treatable source of her symptoms she may require artificial nutrition until things can be stabilized as patient is having precipitous weight loss and is quite malnourished at this time. I have referred her to our local oncologist. The patient is very much in agreement with this plan, grateful for care. She will be started on Carafate, famotidine, p.o. Zofran and [place] Phenergan as needed. At this time will discharge with return precautions and follow-up recommendations. Verbal discharge instructions given a the bedside and opportunity for questions given. Medication warnings reviewed. Patient is in agreement with this plan and has verbalized understanding of return precautions and the need for primary care follow-up in the next 24-72 hours. - Vital Signs Vital signs: Temp Pulse Resp BP Pulse Ox 97.9 F 81 21 H 102/57 L 97 06/26/18 15:55 06/26/18 17:15 06/26/18 18:01 06/26/18 18:01 06/26/18 18:01 - Laboratory Result Diagrams: 06/26/18 16:38 06/26/18 16:38 Laboratory results interpreted by me: 06/26/18 06/26/18 06/26/18 16:38 16:38 17:22 MCV 77 L MCH 26.1 L RDW 16.8 H Glucose 113 H Calcium 10.3 H Urine Protein 30 H Urine Ketones TRACE H Urine Bilirubin MODERATE H Urine Urobilinogen 2.0 H Discharge - Discharge Clinical Impression: Cachexia, Weight loss Nausea and vomiting Qualifiers: Vomiting type: unspecified Vomiting Intractability: non-intractable Qualified Code(s): R11.2 - Nausea with vomiting, unspecified Condition: Good Disposition: HOME, SELF-CARE Additional Instructions: I would strongly advise you to contact our local oncologist and establish care. I believe that you should have a PET scan done as he has not had one in almost 2 years to definitively exclude metastatic cancer as the cause of her precipitous weight loss over the last 2 years. I would also advised that if this is normal, you consider having a repeat endoscopy to further clarify why you are having so much difficulty swallowing her food and having such recurrent nausea and vomiting. In the meantime, I strongly encourage you to try to drink boost or Ensure shakes, ideally several daily to increase your caloric intake. You are being started on famotidine 40 mg twice daily as well as Carafate prior to meals to help assist with your symptoms. You may take oral Zofran as needed for nausea or vomiting. You have also been prescribed rectal Phenergan which can be used if your nausea is unable to be controlled with oral medications. Please return to the emergency department immediately if you become unable to tolerate fluids, develop a fever of greater than 100.4 F, develop severe abdominal pain, pass out, or have any other symptoms that are worrisome to you. Prescriptions: Famotidine 40 mg PO BID #60 tablet Ondansetron [Zofran Odt 4 mg Tablet] 1 - 2 tab PO Q4H PRN #15 tab.rapdis PRN Reason: For Nausea/Vomiting Promethazine HCl [Phenergan 25 mg Supp.rect] 1 supp TX Q6H #12 supp.rect Sucralfate [Carafate 1 gm Tablet] 1 gm PO ACHS #120 tablet Referrals: CHANDRA SHAW MD [NO LOCAL MD] - Follow up as needed TOYA JERNIGAN MD [ACTIVE STAFF] - Follow up in 3-5 days
== END 2018-06-26 20:02 | disposition home or self-care (01) ==
LOC: ER 15:48
DX: R11.2 Nausea with vomiting, unspecified (principal); R63.4 Abnormal weight loss; R63.0 Anorexia; F17.200 Nicotine dependence, unspecified, uncomplicated; J44.9 Chronic obstructive pulmonary disease, unspecified; Z85.118 Personal history of other malignant neoplasm of bronchus and lung; Z90.2 Acquired absence of lung [part of]; Z90.49 Acquired absence of other specified parts of digestive tract; Z90.710 Acquired absence of both cervix and uterus; Z87.19 Personal history of other diseases of the digestive system
CPT/HCPCS: 99284; 96360; 36415; 83690; 85025; 80053; 81001; A9270 ×3; J2405; J7030

== ENCOUNTER → 2018-10-05 | Outpatient (CLI) | payer MEDICARE, MEDICAID ==
--- NOTE | 2018-10-05 12:41 | RADIOLOGY REPORT (SQ) ---
EXAM DESCRIPTION: CT HEAD WITHOUT COMPLETED DATE/TIME: 10/05/2018 11:08 am REASON FOR STUDY: HEADACHE (R51) R51 HEADACHE COMPARISON: MR 11/01/2013 CT 03/04/2013 TECHNIQUE: Axial images acquired through the brain without intravenous contrast. Images reviewed wi th bone, brain and subdural windows. Additional sagittal and coronal reconstructions were generated. Images stored on PACS. All CT scanners at this facility use dose modulation, iterative reconstruction, and/or weight based d osing when appropriate to reduce radiation dose to as low as reasonably achievable (ALARA). [facility]: Dose Right [facility]: CareDose [facility]: Dose Right [facility]: Teradose 4D [facility]: Primo Round RADIATION DOSE: CT Rad equipment meets quality standard of care and radiation dose reduction techniq ues were employed. CTDIvol: 48.6 mGy. DLP: 856 mGy-cm. mGy. LIMITATIONS: None. FINDINGS: VENTRICLES: Normal size and contour. CEREBRUM: No masses. No hemorrhage. No midline shift. No evidence for acute infarction. Normal gra y/white matter differentiation. No areas of low density in the white matter. CEREBELLUM: No masses. No hemorrhage. No alteration of density. No evidence for acute infarction. EXTRAAXIAL SPACES: No fluid collections. No masses. ORBITS AND GLOBE: No intra- or extraconal masses. Normal contour of globe without masses. CALVARIUM: No fracture. PARANASAL SINUSES: Mucoperiosteal changes seen in each maxillary sinus. SOFT TISSUES: No mass or hematoma. OTHER: No other significant finding. IMPRESSION: Mild sinus disease with no acute intracranial imaging finding. EVIDENCE OF ACUTE STROKE: NO. COMMENT: Quality ID # [id number]: Final reports with documentation of one or more dose reduction techniques (e.g., Automated exposure control, adjustment of the mA and/or kV according to patient size, use of iterative reconstruction technique) TECHNICAL DOCUMENTATION: JOB ID: [id number] [employer]- All Rights Reserved Reading location - IP/workstation name: [email or web address]
== END ==
LOC: RAD 10:54
PROVIDERS: ATTEND Internal Medicine
DX: R51 Headache (principal)
CPT/HCPCS: 70450

== ENCOUNTER 2019-08-18 19:36 | Emergency (ER) | payer MEDICARE, MEDICAID ==
[2019-08-18] MEDS ORDERED: LORAZEPAM 0.5 MG TABLET PO ONE (21:02)
[2019-08-18] MEDS ORDERED: DIPH/PERTUSS(ACELL)/TETANUS VAC/PF 0.5 ML SYR (>=10YO) IM ONE ×2 (21:02→23:42)
--- NOTE | 2019-08-18 21:03 | ER Document Report ---
ED Medical Screen (RME) - General Chief Complaint: Finger Injury Stated Complaint: FINGER INJURY Time Seen by Provider: 08/18/19 21:01 Primary Care Provider: TIFFANIE SANTIAGO MD [Primary Care Provider] - Follow up as needed TRAVEL OUTSIDE OF THE [place] IN LAST 30 DAYS: No - HPI Notes: 08/18/19 21:02 Patient is a 59-year-old female who presents complaining of laceration by razor blade to her left third posterior DIP area and fourth posterior mid phalanx. Patient states that she cannot extend her distal third finger. Unknown last tetanus. I have treated and performed a rapid initial assessment of this patient. A comprehensive ED assessment and evaluation of the patient, analysis of test results and completion of medical decision making process will be conducted by a dditional ED providers. PHYSICAL EXAMINATION: GENERAL: Well-appearing, well-nourished and in no acute distress. A&Ox4. Answers questions appropriately. Left hand: There is a superficial laceration to the fourth posterior finger between the PIP and DIP area. There is also a laceration across the DIP joint of the third finger with inability to extend and suspected extensor tendon laceration. Capillary refill less than 2 seconds. Sensory intact. - Related Data Allergies/Adverse Reactions: No Known Allergies Allergy (Verified 08/18/19 20:49) Past Medical History - Past Medical History Cardiac Medical History: Denies: Hx Congestive Heart Failure, Hx Coronary Artery Disease, Hx Heart Attack, Hx Hypertension, Hx Heart Murmur Pulmonary Medical History: Reports: Hx COPD Denies: Hx Asthma, Hx Bronchitis, Hx Pneumonia, Hx Tuberculosis Neurological Medical History: Denies: Hx Cerebrovascular Accident, Hx Seizures Renal/ Medical History: Denies: Hx Peritoneal Dialysis GI Medical History: Reports: Hx Gastroesophageal Reflux Disease. Denies: Hx Hepatitis, Hx Hiatal Hernia, Hx Ulcer Musculoskeltal Medical History: Reports Hx Arthritis - OSTEO Psychiatric Medical History: Reports: Hx Anxiety, Hx Attention Deficit Hyperactivity Disorder Infectious Medical History: Denies: Hx Hepatitis Past Surgical History: Reports: Hx Appendectomy, Hx Hysterectomy. Denies: Hx Mastectomy, Hx Open Heart Surgery, Hx Pacemaker - Immunizations Hx Diphtheria, Pertussis, Tetanus Vaccination: Yes Physical Exam - Vital signs Vitals: Temp Pulse Resp BP Pulse Ox 98.1 F 105 H 18 128/53 H 100 08/18/19 20:12 08/18/19 20:12 08/18/19 20:12 08/18/19 20:12 08/18/19 20:12 Course - Vital Signs Vital signs: Temp Pulse Resp BP Pulse Ox 98.1 F 105 H 18 128/53 H 100 08/18/19 20:12 08/18/19 20:12 08/18/19 20:12 08/18/19 20:12 08/18/19 20:12 Doctor's Discharge - Discharge Referrals: TIFFANIE SANTIAGO MD [Primary Care Provider] - Follow up as needed
--- NOTE | 2019-08-18 21:59 | RADIOLOGY REPORT (SQ) ---
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 HISTORY: 59-year-old patient with history of left hand pain, trauma. COMPARISON: None available FINDINGS: The carpal arcs appear to be intact. The soft tissues are grossly unremarkable. There are no findings to suggest an acute fracture or subluxation within the left hand. No abnormal soft tissue calcifications, significant osteophyte formation, periarticular osteopenia, or bony erosions are seen. There is some gauze seen around the left third digit. No gross radiopaque foreign body is seen. IMPRESSION: There are no findings to suggest an acute fracture or subluxation within the left hand.
[2019-08-18] MEDS ORDERED: LIDOCAINE 1% INJ-PF (10 MG/ML) 30 ML SDV INJ ONE (23:20)
[2019-08-18] MEDS ORDERED: LORAZEPAM INJ 2 MG/1 ML VIAL IM ONE (23:20)
[2019-08-18] MEDS ORDERED: CEPHALEXIN 500 MG CAPSULE PO ONE (23:23)
--- NOTE | 2019-08-18 23:27 | ER Document Report ---
ED Wound - General Chief Complaint: Laceration Stated Complaint: FINGER INJURY Time Seen by Provider: 08/18/19 21:01 Primary Care Provider: BROOK SIMEON JR, DO [ACTIVE PROVISIONAL STAFF] - 08/20/19 Notes: Patient is a 59 year old female that comes to the Emergency Department for chief complaint of laceration to the top of her left 3rd and 4th fingers. This happened just prior to arrival, she was using razor blades to scrape paint off of a window, switched to a brand new one on her tool, the blade slipped and she cut herself. The main laceration is over the middle finger, she cannot extend her finger but she can bend it. She denies any other injuries. She is not up-to-date on her tetanus. She does not have a history of diabetes. TRAVEL OUTSIDE OF THE [place] IN LAST 30 DAYS: No - Related Data Allergies/Adverse Reactions: No Known Allergies Allergy (Verified 08/18/19 20:49) Past Medical History - Social History Smoking Status: Current Some Day Smoker Chew tobacco use (# tins/day): No Frequency of alcohol use: None Drug Abuse: None Family History: Reviewed & Not Pertinent Patient has suicidal ideation: No Patient has homicidal ideation: No - Past Medical History Cardiac Medical History: Denies: Hx Congestive Heart Failure, Hx Coronary Artery Disease, Hx Heart Attack, Hx Hypertension, Hx Heart Murmur Pulmonary Medical History: Reports: Hx COPD Denies: Hx Asthma, Hx Bronchitis, Hx Pneumonia, Hx Tuberculosis Neurological Medical History: Denies: Hx Cerebrovascular Accident, Hx Seizures Renal/ Medical History: Denies: Hx Peritoneal Dialysis GI Medical History: Reports: Hx Gastroesophageal Reflux Disease. Denies: Hx Hepatitis, Hx Hiatal Hernia, Hx Ulcer Musculoskeletal Medical History: Reports Hx Arthritis - OSTEO Psychiatric Medical History: Reports: Hx Anxiety, Hx Attention Deficit Hyperactivity Disorder Infectious Medical History: Denies: Hx Hepatitis Past Surgical History: Reports: Hx Appendectomy, Hx Hysterectomy. Denies: Hx Mastectomy, Hx Open Heart Surgery, Hx Pacemaker - Immunizations Hx Diphtheria, Pertussis, Tetanus Vaccination: Yes Physical Exam - Vital signs Vitals: Temp Pulse Resp BP Pulse Ox 98.1 F 105 H 18 128/53 H 100 08/18/19 20:12 08/18/19 20:12 08/18/19 20:12 08/18/19 20:12 08/18/19 20:12 - Notes Notes: GENERAL: Very anxious but does not appear to be in distress HEAD: Normocephalic, atraumatic. EYES: Pupils equal, round, and reactive to light. Extraocular movements intact. ENT: Oral mucosa moist, tongue midline. Oropharynx unremarkable. Airway patent. LUNGS: Clear to auscultation bilaterally, no wheezes, rales, or rhonchi. No respiratory distress. HEART: Regular rate and rhythm. No murmur ABDOMEN: Soft, non-tender. Non-distended. EXTREMITIES: 1 cm lacerations over the dorsal aspect of the fourth and third digits of the left hand, fourth digit laceration is horizontal, superficial, just behind the DIP, normal exam of the fourth finger. Third digit has a laceration which is 1.5 cm and over the DIP, patient unable to extend the finger, able to flex. Sensation and capillary refill intact. Unremarkable hand exam otherwise. BACK: no cervical, thoracic, lumbar midline tenderness. No saddle anesthesia, normal distal neurovascular exam. NEUROLOGICAL: Alert and oriented x3. Normal speech. Cranial nerves II through XII grossly intact. PSYCH: Very anxious SKIN: Warm, dry, normal turgor. No rashes or lesions noted. Course - Re-evaluation Re-evalutation: Patient has a linear laceration over the fourth digit dorsally and a more concerning laceration over the DIP of the third digit dorsally. She cannot extend the distal end of the fourth finger. Appears to be extensor tendon laceration. Sensation intact, flexion intact, remaining exam unremarkable. X- ray negative. 08/18/19 23:[address] Simeon, orthopedics on-call, he recommends closure, splinting, and he will see her in the office to schedule a repair of the extensor tendon. Wounds were cleaned thoroughly, repaired, placed on antibiotics, placed splint for the finger, provided referral, discussed expectations and follow-up.. Discussed return precautions. Patient states appreciation and agreement. - Vital Signs Vital signs: Temp Pulse Resp BP Pulse Ox 97.5 F 80 17 136/68 H 100 08/19/19 01:12 08/19/19 01:12 08/19/19 01:12 08/19/19 01:12 08/19/19 01:12 Procedures - Laceration/Wound Repair Left fourth finger Wound length (cm): 1 Wound's Depth, Shape: Linear Anesthetic type: 1% Lidocaine Volume Anesthetic (mLs): 1 Wound explored: Clean, No foreign body removed Wound Repaired With: Sutures Suture Size/Type: 5:0, Ethilon Number of Sutures: 3 Layer Closure?: No Post-procedure wound care: Sterile dressing applied Post-procedure NV exam normal: Yes Complications: No Left third finger Wound length (cm): 1.5 Wound's Depth, Shape: Linear Laceration pre-procedure: Sterile PPE donned, Sterile drapes applied, Shur-Clens applied Anesthetic type: 1% Lidocaine Volume Anesthetic (mLs): 2 Wound explored: Clean, No foreign body removed Wound Repaired With: Sutures Suture Size/Type: 5:0, Ethilon Layer Closure?: No Post-procedure wound care: Sterile dressing applied, Splint applied Post-procedure NV exam normal: Yes Complications: No Discharge - Discharge Clinical Impression: Finger laceration involving tendon Qualifiers: Encounter type: initial encounter Qualified Code(s): S61.219A - Laceration without foreign body of unspecified finger without damage to nail, initial encounter Condition: Stable Disposition: HOME, SELF-CARE Additional Instructions: Your x-ray is normal, however your exam is concerning for a tendon laceration of the extensor tendon of your left middle finger. Please keep the splint on, take the antibiotic as prescribed, and please call Dr. Simeon on Tuesday morning for your close follow-up. I spoke with him tonight and he is expecting your follow- up so he can repair this surgically. Keep the other laceration clean with soap and water, you can apply thin film of topical antibiotic and dressing to the area. Return for any concerning symptoms including developing or spreading redness, severe swelling or pain, fever, or any other concerning symptoms. Prescriptions: Cephalexin Monohydrate [Keflex 500 mg Capsule] 500 mg PO TID 5 Days #15 capsule Referrals: BROOK SIMEON JR, DO [ACTIVE PROVISIONAL STAFF] - 08/20/19
[2019-08-19] MEDS ORDERED: HYDROCODONE/ACETAMINOPHEN 5-325 MG (6 TAB/ER DISP) PO PRN (01:00)
[2019-08-19 01:13] VITALS: BP 136/68
== END 2019-08-19 01:20 | disposition home or self-care (01) ==
LOC: ER 19:36
PROC: 0HQGXZZ Repair Left Hand Skin, External Approach (ICD-10-PCS; principal; 2019-08-18)
DX: S61.213A Laceration without foreign body of left middle finger without damage to nail, initial encounter (principal); S61.214A Laceration without foreign body of right ring finger without damage to nail, initial encounter; W26.0XXA Contact with knife, initial encounter; F17.200 Nicotine dependence, unspecified, uncomplicated; J44.9 Chronic obstructive pulmonary disease, unspecified
CPT/HCPCS: 99283; 96372; 90471; 73130; 90715; 12001; A9270 ×2; J3490; J2060

== ENCOUNTER 2019-08-22 21:54 | Observation (INO) | payer MEDICARE, MEDICAID ==
[2019-08-23 02:32] LABS: ABSOLUTE BASOPHILS # (AUTO) 0.1 10^3/uL (0.0-0.2); ABSOLUTE EOSINOPHILS # (AUTO) 0.4 10^3/uL (0.0-0.6); ABSOLUTE LYMPHOCYTES (AUTO) 3.2 10^3/uL (0.5-4.7); ABSOLUTE MONOCYTES (AUTO) 0.5 10^3/uL (0.1-1.4); EOSINOPHILS % (AUTO) 4.6 % (0-6); HEMATOCRIT 36.5 % (36.0-47.0); HEMOGLOBIN 12.6 g/dL (12.0-15.5); LYMPHOCYTES % (AUTO) 39.3 % (13-45); MEAN CORPUSCULAR HEMOGLOBIN 28.9 pg (27.0-33.4); MEAN CORPUSCULAR HGB CONC 34.5 g/dL (32.0-36.0); MEAN CORPUSCULAR VOLUME 84 fl (80-97); MONOCYTES % (AUTO) 6.7 % (3-13); PLATELET COUNT 294 10^3/uL (150-450); RED BLOOD COUNT 4.36 10^6/uL (3.72-5.28); RED CELL DISTRIBUTION WIDTH 16.6 % (11.5-14.0); SEGMENTED NEUTROPHILS % (AUTO) 48.4 % (42-78); TOTAL CELLS COUNTED % (AUTO) 100 %; WHITE BLOOD COUNT 8.2 10^3/uL (4.0-10.5)
[2019-08-23 02:43] LABS: ALBUMIN 4.1 g/dL (3.5-5.0); ALKALINE PHOSPHATASE 86 U/L (38-126); ANION GAP 6 (5-19); ASPARTATE AMINO TRANSFERASE 18 U/L (14-36); BILIRUBIN,TOTAL 0.2 mg/dL (0.2-1.3); BLOOD UREA NITROGEN 12 mg/dL (7-20); CALCIUM 9.7 mg/dL (8.4-10.2); CARBON DIOXIDE 28 mmol/L (22-30); CHLORIDE 109 mmol/L (98-107); GLUCOSE 121 mg/dL (75-110); POTASSIUM 4.1 mmol/L (3.6-5.0); TOTAL PROTEIN 6.8 g/dL (6.3-8.2)
[2019-08-23] MEDS ORDERED: ASPIRIN 81 MG TABLET, CHEWABLE PO ONE (07:51)
--- NOTE | 2019-08-23 08:40 | ER Document Report ---
Entered by NIRMAL MASON SCRIBE 08/23/19 0750 Acting as scribe for:GABBIE MOSS DO ED General - General Chief Complaint: Chest Pressure Stated Complaint: CHEST PAINS Time Seen by Provider: 08/23/19 07:07 Mode of Arrival: Ambulatory Notes: This 59 year old female patient presents to the emergency department today after being seen for a pre-op appointment for left finger surgery. Patient states that she lacerated her left 3rd finger extensor tendon and she was at a pre-op appointment for this repair and an EKG showed she "may have had a heart attack". Patient mentions what seems like exertional chest pain for the last several days. Patient describes that her chest feels "heavy" when she walks around but denies any radiation of pain. Patient is tearful. TRAVEL OUTSIDE OF THE [place] IN LAST 30 DAYS: No - Related Data Allergies/Adverse Reactions: No Known Allergies Allergy (Verified 08/23/19 06:22) Home Medications: Gabapentic. Synthroid Past Medical History - General Information source: Patient - Social History Smoking Status: Current Every Day Smoker Cigarette use (# per day): Yes Frequency of alcohol use: None Drug Abuse: None Lives with: Family Family History: Reviewed & Not Pertinent Patient has suicidal ideation: No Patient has homicidal ideation: No Pulmonary Medical History: Reports: Hx COPD Malignancy Medical History: Reports: Hx Lung Cancer - Status post right lower lobe resection GI Medical History: Reports: Hx Gastroesophageal Reflux Disease Musculoskeletal Medical History: Reports Hx Arthritis - OSTEO Psychiatric Medical History: Reports: Hx Anxiety, Hx Attention Deficit Hyperactivity Disorder Past Surgical History: Reports: Hx Appendectomy, Hx Hysterectomy - Immunizations Hx Diphtheria, Pertussis, Tetanus Vaccination: Yes Review of Systems - Review of Systems Constitutional: No symptoms reported EENT: No symptoms reported Cardiovascular: See HPI, Chest pain Respiratory: No symptoms reported Gastrointestinal: No symptoms reported Genitourinary: No symptoms reported Female Genitourinary: No symptoms reported Musculoskeletal: No symptoms reported Skin: No symptoms reported Hematologic/Lymphatic: No symptoms reported Neurological/Psychological: No symptoms reported -: Yes All other systems reviewed and negative Physical Exam - Vital signs Vitals: Temp Pulse Resp BP Pulse Ox 98.3 F 101 H 20 126/63 H 78 L 08/22/19 22:08 08/22/19 22:08 08/22/19 22:08 08/22/19 22:08 08/22/19 22:08 - Notes Notes: Physical Exam: General: Alert, appears much older than stated age. HEENT: Normocephalic. Atraumatic. PERRL. Extraocular movements intact. Oropharynx clear. Neck: Supple. Non-tender. Respiratory: No respiratory distress. Clear and equal breath sounds bilaterally. Cardiovascular: Regular rate and rhythm. Abdominal: Normal Inspection. Non-tender. No distension. Normal Bowel Sounds. Back: No gross abnormalities. Extremities: Moves all four extremities. Upper extremities: Left third finger in splint Lower extremities: Normal inspection. No edema. Normal ROM. Neurological: Normal cognition. AAOx4. Normal speech. Psychological: Anxious, intermittently tearful. Skin: Warm. Dry. Normal color. Course - Re-evaluation Re-evalutation: 08/23/19 07:56 MDM I have discussed this pt with Dr. Lentz and he has graciously agreed to see and evaluate for admission. - Vital Signs Vital signs: Temp Pulse Resp BP Pulse Ox 97.9 F 98 16 150/109 H 100 08/23/19 14:10 08/23/19 15:47 08/23/19 14:10 08/23/19 14:10 08/23/19 14:10 - Laboratory Result Diagrams: 08/23/19 02:18 08/23/19 02:18 Laboratory results interpreted by me: 08/23/19 08/23/19 02:18 02:18 RDW 16.6 H Chloride 109 H Glucose 121 H - EKG Interpretation by Ma EKG shows normal: Sinus rhythm Rate: Normal Rhythm: NSR - NSR Nl [place] [address] elevation or depression my interpretation. Discharge - Discharge Clinical Impression: Chest pain at rest Condition: Fair Disposition: ADMITTED OBSERVATION Admitting Provider: [facility] Unit Admitted: Telemetry I personally performed the services described in the documentation, reviewed and edited the documentation which was dictated to the scribe in my presence, and it accurately records my words and actions.
[2019-08-23] MEDS: ENOXAPARIN SODIUM INJ 40 MG/0.4 ML DISP.SYRIN SUBCUT SCH (10:09)
[2019-08-23] MEDS: ASPIRIN 81 MG TABLET, ENT COATED PO SCH (10:09)
[2019-08-23] MEDS: ATORVASTATIN CALCIUM 80 MG TABLET PO SCH (10:09)
[2019-08-23 13:31] LABS: CREATINE KINASE MB 0.53 ng/mL (<4.55)
[2019-08-23 13:35] LABS: TROPONIN I < 0.012 ng/mL
[2019-08-23] MEDS ORDERED: ALPRAZOLAM 0.5 MG TABLET PO ONE (17:00)
[2019-08-23 19:03] LABS: CREATINE KINASE MB 0.68 ng/mL (<4.55)
[2019-08-23 19:07] LABS: TROPONIN I < 0.012 ng/mL
--- NOTE | 2019-08-23 19:44 | EKG REPORT ---
SEVERITY:- ABNORMAL ECG - SINUS RHYTHM PROBABLE LEFT VENTRICULAR HYPERTROPHY ANTERIOR Q WAVES, POSSIBLY DUE TO LVH : Confirmed by: Iram Casey MD 23-Aug-2019 19:44:24
--- NOTE | 2019-08-23 20:16 | PDOC H&P ---
History of Present Illness Admission Date/PCP: 08/23/19 09:17 TIFFANIE SANTIAGO MD History of Present Illness: SHAR SANCHEZ is a 59 year old female,She came to the emergency room last night for evaluation of chest pain in the setting of abnormal EKG. She was supposed to have elective surgery on a lacerated extensor tendon of the third finger of the left hand. She was in outpatient surgery for the procedure, a 12- lead EKG was done, it showed sinus rhythm but there was Q waves in V1 and V2 because of the abnormal EKG the anesthesiologist was not comfortable to proceed with the procedure, the today was canceled and patient was referred to the emergency room for further evaluation.She has a history of lung cancer that was treated surgically with resection of the lung, she has a history of tobacco use and also anxiety disorder she has chronic pain syndrome from severe S-shaped thoracolumbar scoliosis Past Medical History Pulmonary Medical History: Reports: Chronic Obstructive Pulmonary Disease (COPD) Malignancy Medical History: Reports: Lung Cancer - Status post right lower lobe resection GI Medical History: Reports: Gastroesophageal Reflux Disease Musculoskeltal Medical History: Reports: Arthritis - OSTEO Psychiatric Medical History: Reports: Attention Deficit Hyperactivity Disorder Hematology: Past Surgical History Past Surgical History: Reports: Appendectomy, Hysterectomy Social History Lives with: Family Smoking Status: Current Every Day Smoker Hx Recreational Drug Use: No - Advance Directive Resuscitation Status: Full Code Family History Family History: Reviewed & Not Pertinent Parental Family History Reviewed: Yes Children Family History Reviewed: Yes Sibling(s) Family History Reviewed.: Yes Medication/Allergy Home Medications: Albuterol Sulfate [Proair HFA] 2 inh IH Q4HP PRN 10/12/12 Levothyroxine Sodium [Synthroid] 250 mcg PO Q6AM 10/12/12 Buspirone HCl 30 mg PO BID 10/28/17 Dexlansoprazole [Dexilant 60 mg Capsule] 60 mg PO Q6AM 10/28/17 Dextroamphetamine/Amphetamine [Adderall Xr 20 mg Capsule] 2 cap PO QAM 10/28/17 Gabapentin 600 mg PO TIDP PRN 10/28/17 Zolpidem Tartrate [Ambien] 10 mg PO QHS PRN 10/28/17 Allergies/Adverse Reactions: No Known Allergies Allergy (Verified 08/23/19 06:22) Review of Systems Constitutional: ABSENT: chills, fever(s), headache(s), weight gain, weight loss Eyes: ABSENT: visual disturbances Ears: ABSENT: hearing changes Cardiovascular: PRESENT: chest pain. ABSENT: dyspnea on exertion, edema, orthropnea, palpitations Respiratory: ABSENT: cough, hemoptysis Gastrointestinal: ABSENT: abdominal pain, constipation, diarrhea, hematemesis, hematochezia, nausea, vomiting Genitourinary: ABSENT: dysuria, hematuria Musculoskeletal: ABSENT: joint swelling Integumentary: ABSENT: rash, wounds Neurological: ABSENT: abnormal gait, abnormal speech, confusion, dizziness, focal weakness, syncope Psychiatric: ABSENT: anxiety, depression, homidical ideation, suicidal ideation Endocrine: ABSENT: cold intolerance, heat intolerance, menstrual abnormalities, polydipsia, polyuria Hematologic/Lymphatic: ABSENT: easy bleeding, easy bruising, lymphadenopathy Physical Exam Vital Signs: Temp Pulse Resp BP Pulse Ox 97.9 F 98 16 150/109 H 100 08/23/19 14:10 08/23/19 15:47 08/23/19 14:10 08/23/19 14:10 08/23/19 14:10 Intake & Output 08/22/19 08/23/19 08/24/19 06:59 06:59 06:59 Weight 48.6 kg General appearance: PRESENT: no acute distress Head exam: PRESENT: atraumatic, normocephalic Eye exam: PRESENT: PERRLA Ear exam: PRESENT: normal external ear exam Mouth exam: PRESENT: moist, tongue midline Neck exam: PRESENT: full ROM Respiratory exam: PRESENT: clear to auscultation walter Cardiovascular exam: PRESENT: RRR, +S1, +S2 Pulses: PRESENT: normal dorsalis pedis pul, +2 pedal pulses bilateral Vascular exam: PRESENT: normal capillary refill GI/Abdominal exam: PRESENT: normal bowel sounds, soft Rectal exam: PRESENT: deferred Neurological exam: PRESENT: alert, awake, oriented to person, oriented to place, oriented to time, oriented to situation, CN II-XII grossly intact Psychiatric exam: PRESENT: appropriate affect, normal mood Skin exam: PRESENT: dry, intact, warm Results Laboratory Results: 08/23/19 02:18 08/23/19 02:18 08/23/19 08/23/19 02:18 02:18 WBC 8.2 RBC 4.36 Hgb 12.6 Hct 36.5 MCV 84 MCH 28.9 MCHC 34.5 RDW 16.6 H Plt Count 294 Seg Neutrophils % 48.4 Sodium 143.0 Potassium 4.1 Chloride 109 H Carbon Dioxide 28 Anion Gap 6 BUN 12 Creatinine 0.53 Est GFR ( Amer) > 60 Glucose 121 H Calcium 9.7 Total Bilirubin 0.2 AST 18 Alkaline Phosphatase 86 Total Protein 6.8 Albumin 4.1 08/23/19 08/23/19 08/23/19 02:18 06:49 12:31 CK-MB (CK-2) 0.53 Troponin I < 0.012 < 0.012 < 0.012 08/23/19 18:18 CK-MB (CK-2) 0.68 Troponin I < 0.012 Assessment & Plan - Diagnosis (1) Chest pain Qualifiers: Chest pain type: unspecified Qualified Code(s): R07.9 - Chest pain, unspe cified Is this a current diagnosis for this admission?: Yes Plan: She has risk factors for ischemic heart disease, tobacco use, she will be mariam eduled for a Cardiolite Lexiscan stress test (2) Abnormal electrocardiogram [ECG] [EKG] Is this a current diagnosis for this admission?: Yes (3) Anxiety Is this a current diagnosis for this admission?: Yes Plan: Start alprazolam for anxiety (4) Finger laceration involving tendon Qualifiers: Encounter type: initial encounter Qualified Code(s): S61.219A - Laceration without foreign body of unspecified finger without damage to nail, initial encounter Is this a current diagnosis for this admission?: Yes Plan: Consult orthopedic
[2019-08-23] MEDS: ALPRAZOLAM 0.5 MG TABLET PO PRN (22:05)
[2019-08-24 01:15] LABS: CREATINE KINASE MB 0.54 ng/mL (<4.55)
[2019-08-24 01:22] LABS: TROPONIN I < 0.012 ng/mL
[2019-08-24 08:31] LABS: CHOLESTEROL 142.65 mg/dL (0-200); TRIGLYCERIDES 108 mg/dL (<150)
[2019-08-24 08:42] LABS: DIRECT LDL 72 mg/dL (<100)
[2019-08-24] MEDS ORDERED: REGADENOSON INJ 0.4 MG/5 ML DISP.SYRIN IV ONE (10:29)
[2019-08-24] MEDS: ASPIRIN 81 MG TABLET, ENT COATED PO SCH (11:13)
[2019-08-24] MEDS: ATORVASTATIN CALCIUM 80 MG TABLET PO SCH (11:13)
[2019-08-24] MEDS: ENOXAPARIN SODIUM INJ 40 MG/0.4 ML DISP.SYRIN SUBCUT SCH (11:13)
[2019-08-24] MEDS: ALPRAZOLAM 0.5 MG TABLET PO PRN (13:14)
[2019-08-24 16:19] VITALS: BP 150/109
--- NOTE | 2019-08-24 20:56 | PDOC DISCHARGE SUMMARY ---
Impression - Admit/DC Date/PCP Admission Date/Primary Care Provider: 08/23/19 09:17 TIFFANIE SANTIAGO MD Discharge Date: 08/24/19 - Discharge Diagnosis (1) Chest pain Is this a current diagnosis for this admission?: Yes (2) Abnormal electrocardiogram [ECG] [EKG] Is this a current diagnosis for this admission?: Yes (3) Anxiety Is this a current diagnosis for this admission?: Yes (4) Finger laceration involving tendon Is this a current diagnosis for this admission?: Yes - Additional Information Resuscitation Status: Full Code Discharge Diet: As Tolerated Discharge Activity: Activity As Tolerated Referrals: TIFFANIE SANTIAGO MD [Primary Care Provider] - 09/04/19 10:30 am Home Medications: RX: Albuterol Sulfate [Proair HFA] 2 inh IH Q4HP PRN 10/12/12 RX: Levothyroxine Sodium [Synthroid] 250 mcg PO Q6AM 10/12/12 Dexlansoprazole [Dexilant 60 mg Capsule] 60 mg PO Q6AM 10/28/17 Dextroamphetamine/Amphetamine [Adderall Xr 20 mg Capsule] 2 cap PO QAM 10/28/17 RX: Buspirone HCl 30 mg PO BID 10/28/17 RX: Gabapentin 600 mg PO TIDP PRN 10/28/17 Zolpidem Tartrate [Ambien] 10 mg PO QHS PRN 10/28/17 History of Present Illiness History of Present Illness: SHAR SANCHEZ is a 59 year old female,She came to the emergency room last night for evaluation of chest pain in the setting of abnormal EKG. She was supposed to have elective surgery on a lacerated extensor tendon of the third finger of the left hand. She was in outpatient surgery for the procedure, a 12- lead EKG was done, it showed sinus rhythm but there was Q waves in V1 and V2 because of the abnormal EKG the anesthesiologist was not comfortable to proceed with the procedure, the today was canceled and patient was referred to the emergency room for further evaluation.She has a history of lung cancer that was treated surgically with resection of the lung, she has a history of tobacco use and also anxiety disorder she has chronic pain syndrome from severe S-shaped thoracolumbar scoliosis Hospital Course Hospital Course: Patient was admitted for the management of chest pain with a background of Q waves in V1 V2, 3 sets of cardiac enzymes negative for acute [place]. She underwent Lexiscan Cardiolite stress test negative for reversible ischemia. She was brought in for observation she manifested some anxiety she stable for discharge ,discharge home today. Physical Exam Vital Signs: Temp Pulse Resp BP Pulse Ox 98.4 F 84 17 150/109 H 100 08/24/19 16:18 08/24/19 16:18 08/24/19 16:18 08/24/19 16:18 08/24/19 16:18 Intake & Output 08/23/19 08/24/19 08/25/19 06:59 06:59 06:59 Intake Total 400 118 Balance 400 118 Weight 48.6 kg 52.4 kg 48.6 kg General appearance: PRESENT: no acute distress Eye exam: PRESENT: PERRLA Respiratory exam: PRESENT: clear to auscultation walter Cardiovascular exam: PRESENT: +S1, +S2 Neurological exam: PRESENT: alert Results Laboratory Results: WBC 8.2 10^3/uL (4.0-10.5) 08/23/19 02:18 RBC 4.36 10^6/uL (3.72-5.28) 08/23/19 02:18 Hgb 12.6 g/dL (12.0-15.5) 08/23/19 02:18 Hct 36.5 % (36.0-47.0) 08/23/19 02:18 MCV 84 fl (80-97) 08/23/19 02:18 MCH 28.9 pg (27.0-33.4) 08/23/19 02:18 MCHC 34.5 g/dL (32.0-36.0) 08/23/19 02:18 RDW 16.6 % (11.5-14.0) H 08/23/19 02:18 Plt Count 294 10^3/uL (150-450) 08/23/19 02:18 Lymph % (Auto) 39.3 % (13-45) 08/23/19 02:18 Summers % (Auto) 6.7 % (3-13) 08/23/19 02:18 Eos % (Auto) 4.6 % (0-6) 08/23/19 02:18 Baso % (Auto) 1.0 % (0-2) 08/23/19 02:18 Absolute Neuts (auto) 4.0 10^3/uL (1.7-8.2) 08/23/19 02:18 Absolute Lymphs (auto) 3.2 10^3/uL (0.5-4.7) 08/23/19 02:18 Absolute Monos (auto) 0.5 10^3/uL (0.1-1.4) 08/23/19 02:18 Absolute Eos (auto) 0.4 10^3/uL (0.0-0.6) 08/23/19 02:18 Absolute Basos (auto) 0.1 10^3/uL (0.0-0.2) 08/23/19 02:18 Seg Neutrophils % 48.4 % (42-78) 08/23/19 02:18 Sodium 143.0 mmol/L (137-145) 08/23/19 02:18 Potassium 4.1 mmol/L (3.6-5.0) 08/23/19 02:18 Chloride 109 mmol/L (98-107) H 08/23/19 02:18 Carbon Dioxide 28 mmol/L (22-30) 08/23/19 02:18 Anion Gap 6 (5-19) 08/23/19 02:18 BUN 12 mg/dL (7-20) 08/23/19 02:18 Creatinine 0.53 mg/dL (0.52-1.25) 08/23/19 02:18 Est GFR ( Amer) > 60 (>60) 08/23/19 02:18 Est GFR (MDRD) Non-Af > 60 (>60) 08/23/19 02:18 Glucose 121 mg/dL (75-110) H 08/23/19 02:18 POC Glucose 86 mg/dL (70-110) 08/24/19 06:40 Calcium 9.7 mg/dL (8.4-10.2) 08/23/19 02:18 Total Bilirubin 0.2 mg/dL (0.2-1.3) 08/23/19 02:18 Direct Bilirubin 0.0 mg/dL (0.0-0.4) 08/23/19 02:18 Neonat Total Bilirubin Not Reportable 08/23/19 02:18 Neonat Direct Bilirubin Not Reportable 08/23/19 02:18 Neonat Indirect Bili Not Reportable 08/23/19 02:18 AST 18 U/L (14-36) 08/23/19 02:18 ALT 12 U/L (<35) 08/23/19 02:18 Alkaline Phosphatase 86 U/L (38-126) 08/23/19 02:18 CK-MB (CK-2) 0.54 ng/mL (<4.55) 08/24/19 00:35 Troponin I < 0.012 ng/mL 08/24/19 00:35 Total Protein 6.8 g/dL (6.3-8.2) 08/23/19 02:18 Albumin 4.1 g/dL (3.5-5.0) 08/23/19 02:18 Triglycerides 108 mg/dL (<150) 08/24/19 07:41 Cholesterol 142.65 mg/dL (0-200) 08/24/19 07:41 LDL Cholesterol Direct 72 mg/dL (<100) 08/24/19 07:41 VLDL Cholesterol 22.0 mg/dL (10-31) 08/24/19 07:41 HDL Cholesterol 55 mg/dL (>40) 08/24/19 07:41 08/23/19 08/23/19 08/23/19 02:18 06:49 12:31 CK-MB (CK-2) 0.53 Troponin I < 0.012 < 0.012 < 0.012 08/23/19 08/24/19 18:18 00:35 CK-MB (CK-2) 0.68 0.54 Troponin I < 0.012 < 0.012 Stroke Is this a Stroke Patient?: No Acute Heart Failure - Is this a Heart Failure Patient?: No
--- NOTE | 2019-08-26 17:02 | XCELERA REPORT ---
[address] [address] Transthoracic Echocardiogram Report Name: SHAR SANCHEZ Age: 59 yrs Gender: Female : 1960 Patient Status: Inpatient Patient Location: [address] [place] [address] Study Date: 08/23/2019 07:37 PM Height: 68 in Weight: 107 lb BSA: 1.6 m2 Procedure: A two-dimensional transthoracic echocardiogram with color flow and Doppler was performed. The study was technically difficult with many images being suboptimal in quality. The study was technically limited with all images being suboptimal in quality. Reason For Study: chest pain ,abnormal EKG,HYPERTENSION History: CHEST PAIN. Ordering Physician: TIFFANIE SANTIAGO Performed By: Lubna Perry Interpretation Summary The left ventricle is normal in size. There is normal left ventricular wall thickness. LV EF is > than 65% Doppler measurements suggest impaired left ventricular relaxation, which is associated with grade I/IV or mild diastolic dysfunction The left ventricular wall motion is normal. There is no thrombus. Cannot assess ASD,VSD or PFO. The right ventricle is normal in size and function. The right atrium is normal. The left atrial size is normal. There is mild mitral annular calcification. There is no evidence of mitral valve prolapse. There is no vegetation seen on the mitral valve. There is no mitral valve stenosis. There is a trace amount of mitral regurgitation There is no aortic valvular vegetation. There is aortic sclerosis without aortic stenosis. There is no LVOT obstruction. No aortic regurgitation is present. There is no tricuspid stenosis. There is a mild amount of tricuspid regurgitation There is moderate pulmonary hypertension by echo RVSP is 48 to 53 mm of Hg ,with RA mean of 15 tp20. There is no pulmonic valvular stenosis. There is no pulmonic valvular regurgitation. The aortic root is normal size. The inferior vena cava appeared dilated and decreased < 50% with respiration (RAP 15-20 mmHg) There is no pericardial effusion. MMode/2D Measurements & Calculations RVDd: 2.3 cm LVIDd: 4.7 cm FS: 40.8 % Ao root diam: 3.4 cm IVSd: 0.93 cm LVIDs: 2.8 cm EDV(Teich): 103.8 ml Ao root area: 9.0 cm2 LVPWd: 0.87 cm ESV(Teich): 29.5 ml LA dimension: 3.0 cm EF(Teich): 71.5 % Doppler Measurements & Calculations MV E max francis: MV P1/2t max francis: Ao V2 max: LV V1 max P.4 cm/sec 79.9 cm/sec 138.2 cm/sec 6.4 mmHg MV A max francis: MV P1/2t: 85.6 msec Ao max P.6 mmHg LV V1 max: 90.3 cm/sec MVA(P1/2t): 2.6 cm2 126.5 cm/sec MV E/A: 0.93 MV dec slope: 273.6 cm/sec2 MV dec time: 0.25 sec PA V2 max: TR max francis: MV P1/2t-pr_phl: 75.0 cm/sec 289.1 cm/sec 85.6 msec PA max PG: TR max P.4 mmHg 2.3 mmHg Left Ventricle The left ventricle is normal in size. There is normal left ventricular wall thickness. LV EF is > than 65%. Doppler measurements suggest impaired left ventricular relaxation, which is associated with grade I/IV or mild diastolic dysfunction. The left ventricular wall motion is normal. There is no thrombus. Cannot assess ASD,VSD or PFO. Right Ventricle The right ventricle is not well visualized secondary to technical limitations. The right ventricle is normal in size and function. Atria The right atrium is normal. The left atrial size is normal. Mitral Valve There is mild mitral annular calcification. There is no evidence of mitral valve prolapse. There is no vegetation seen on the mitral valve. There is no mitral valve stenosis. There is a trace amount of mitral regurgitation. Aortic Valve There is no aortic valvular vegetation. There is aortic sclerosis without aortic stenosis. There is no LVOT obstruction. No aortic regurgitation is present. Tricuspid Valve There is no tricuspid stenosis. There is a mild amount of tricuspid regurgitation. There is moderate pulmonary hypertension by echo. RVSP is 48 to 53 mm of Hg ,with RA mean of 15 tp20. Pulmonic Valve There is no pulmonic valvular stenosis. There is no pulmonic valvular regurgitation. Great Vessels The aortic root is normal size. The inferior vena cava appeared dilated and decreased < 50% with respiration (RAP 15-20 mmHg). Effusions There is no pericardial effusion. : TIFFANIE SANTIAGO Lakshmi
--- NOTE | 2019-08-26 23:45 | DRAGON STRESS TEST REPORT ---
Intravenous Lexiscan Cardiolite stress test using single photon emmision computerized tomography. Date of procedure: 08/24/2019. Ordering Provider: Dr. Hernandez. Patient's status: Inpatient. Indication: Chest pain. Coronary risk factors: Age, and tobacco abuse disorder. Resting EKG: Sinus Rhythm. Within normal limits. Stress EKG: No changes of ischemia. The patient had no chest pain or discomfort, and there were no arrhythmias seen. Reason for termination: Protocol. Conclusions: Normal EKG and hemodynamic response to IV Lexiscan. Nuclear data: At rest the patient was given 10.57 millicuries of technetium 99m sestamibi injected intravenously. As per protocol rest non gated SPECT images were obtained. Subsequently the patient was given intravenous Lexiscan at a dose of 0.4 mg in 5 mL intravenously, followed by flush with normal saline. Subsequently the stress dose of 31.1 millicuries of technetium 99m sestamibi was injected intravenously. As per protocol stress gated images were obtained. Nuclear interpretation: Review of images showed that all segments of the myocardium had normal perfusion at rest, and normal perfusion post stress with IV Lexiscan. All segments of the myocardium had normal motion, contraction, and thickening by gated study. T. I D. ratio was normal at 1.03. There is no transient ischemic dilatation of the left ventricle. Computer read rest, and stress left ventricular ejection fraction were 59 %, and 61 %, respectively. Visually both the stress and rest ejection fractions were normal, and greater than 60 %. Conclusion: 1. There is no scintigraphic evidence of Lexiscan induced myocardial ischemia. 2. There is no scintigraphic evidence of myocardial infarction/scar. Recommendations: Aggressive risk factor modification, and treating the underlying co- morbidities. [facility]
== END 2019-08-24 17:05 | disposition home or self-care (01) ==
LOC: ER 21:54 → EH 08-23 09:17 → 4S 08-23 14:15
PROVIDERS: ADMIT Internal Medicine; ATTEND Internal Medicine
DX: R07.9 Chest pain, unspecified (principal); R94.31 Abnormal electrocardiogram [ECG] [EKG]; F41.9 Anxiety disorder, unspecified; S56.424A Laceration of extensor muscle, fascia and tendon of left middle finger at forearm level, initial encounter; W45.8XXA Other foreign body or object entering through skin, initial encounter; J44.9 Chronic obstructive pulmonary disease, unspecified; K21.9 Gastro-esophageal reflux disease without esophagitis; M41.85 Other forms of scoliosis, thoracolumbar region; M19.90 Unspecified osteoarthritis, unspecified site; F17.210 Nicotine dependence, cigarettes, uncomplicated; Z85.118 Personal history of other malignant neoplasm of bronchus and lung; Z90.2 Acquired absence of lung [part of]; Z79.899 Other long term (current) drug therapy
CPT/HCPCS: 93005; 99285; 36415 ×2; 82553 ×2; 82962 ×2; 85025; 80053; 84484 ×2; 80061; 93306; 93017; 78452; 93010; G0378 ×3; A9500; A9270 ×5; J2785; J1650; Q9969

== ENCOUNTER → 2019-08-22 | Day surgery (SDC) | payer MEDICARE, MEDICAID ==
[2019-08-21 11:42] LABS: HEMATOCRIT 36.3 % (36.0-47.0); HEMOGLOBIN 12.8 g/dL (12.0-15.5); MEAN CORPUSCULAR HEMOGLOBIN 29.2 pg (27.0-33.4); MEAN CORPUSCULAR HGB CONC 35.1 g/dL (32.0-36.0); MEAN CORPUSCULAR VOLUME 83 fl (80-97); PLATELET COUNT 285 10^3/uL (150-450); RED BLOOD COUNT 4.37 10^6/uL (3.72-5.28); RED CELL DISTRIBUTION WIDTH 16.3 % (11.5-14.0); WHITE BLOOD COUNT 5.6 10^3/uL (4.0-10.5)
[2019-08-21 12:10] LABS: ANION GAP 7 (5-19); BLOOD UREA NITROGEN 11 mg/dL (7-20); CALCIUM 9.8 mg/dL (8.4-10.2); CARBON DIOXIDE 27 mmol/L (22-30); CHLORIDE 106 mmol/L (98-107); GLUCOSE 95 mg/dL (75-110); POTASSIUM 4.8 mmol/L (3.6-5.0)
--- NOTE | 2019-08-21 12:59 | RADIOLOGY REPORT (SQ) ---
EXAM DESCRIPTION: CHEST PA/LATERAL COMPLETED DATE/TIME: 08/21/2019 11:19 am REASON FOR STUDY: PRE-OP COMPARISON: 11/23/2017 EXAM PARAMETERS: NUMBER OF VIEWS: two views TECHNIQUE: Digital Frontal and Lateral radiographic views of the chest acquired. RADIATION DOSE: NA LIMITATIONS: none FINDINGS: LUNGS AND PLEURA: Chronic opacification in the right lung base. No acute infiltrate, effu edwin, or mass. MEDIASTINUM AND HILAR STRUCTURES: No masses or contour abnormalities. HEART AND VASCULAR STRUCTURES: Heart normal size. No evidence for failure. BONES: No acute findings. HARDWARE: Scoliosis. OTHER: No other significant finding. IMPRESSION: Scoliosis. Chronic changes in the right base suggesting elevated right hemidiaphragm. Cannot exclude loculated pleural effusion. TECHNICAL DOCUMENTATION: JOB ID: [id number] 2010 [employer]- All Rights Reserved Reading location - IP/workstation name: [email or web address]
[2019-08-21 14:30] VITALS: BP 119/79
--- NOTE | 2019-08-21 17:12 | EKG REPORT ---
SEVERITY:- DEFECTIVE ECG - SINUS RHYTHM INTERCHANGED V LEADS.REPEAT EKG. : Confirmed by: Iram Casey MD 21-Aug-2019 17:11:26
[~2019-08-22] MED LIST changes: +ACETAMINOPHEN 325 MG TABLET PO PRN; +CEFAZOLIN SODIUM 2 GM in DEXTROSE 5%-WATER 100 ML IV PRN; +LACTATED RINGERS 1000 ML IV PRN; +LIDOCAINE 0.5% INJ-PF (5 MG/ML) 50 ML SDV SUBCUT PRN; +OXYCODONE HCL SR 10 MG TABLET PO PRN; -PROPOFOL INJ 200 MG/20 ML VIAL IV ONE
--- NOTE | 2019-08-22 18:24 | EKG REPORT ---
SEVERITY:- NORMAL ECG - SINUS RHYTHM : Confirmed by: Iram Casey MD 22-Aug-2019 18:23:23
== END ==
LOC: OROUT 11:57
PROVIDERS: ATTEND Orthopaedic Surgery
DX: S66.323A Laceration of extensor muscle, fascia and tendon of left middle finger at wrist and hand level, initial encounter (principal); Z79.899 Other long term (current) drug therapy; X58.XXXA Exposure to other specified factors, initial encounter; Z53.8 Procedure and treatment not carried out for other reasons
CPT/HCPCS: 36415; 71046; 80048; 85027; 93005; 93010; J0690; J7060

== ENCOUNTER 2019-08-27 09:44 | Day surgery (SDC) | payer MEDICARE, MEDICAID ==
[~2019-08-27 09:44] MED LIST changes: -ACETAMINOPHEN 325 MG TABLET PO PRN; -CEFAZOLIN SODIUM 2 GM in DEXTROSE 5%-WATER 100 ML IV PRN; -LACTATED RINGERS 1000 ML IV PRN; -LIDOCAINE 0.5% INJ-PF (5 MG/ML) 50 ML SDV SUBCUT PRN; -OXYCODONE HCL SR 10 MG TABLET PO PRN; +PROPOFOL INJ 200 MG/20 ML VIAL IV ONE
[2019-08-27 11:12] VITALS: BP 103/56
--- NOTE | 2019-08-27 11:56 | Operative Report ---
Operative Report DATE OF SURGERY: 08/27/19 Operative Report: The risks benefits and alternatives of the procedure explained to the patient in detail and informed consent is obtained.A GIF Olympus video scope was inserted into the patient's mouth and hypopharynx, the esophagus is identified intubated and insufflated ,the scope was then advanced through the esophagus stomach and duodenum ,retroflexion maneuver is done ,the esophagus stomach and first and second portions of the duodenum examined PREOPERATIVE DIAGNOSIS: Dysphagia POSTOPERATIVE DIAGNOSIS: Hiatal hernia. Possible paraesophageal hernia. Gastritis status post biopsy. Duodenitis OPERATION: EGD with biopsy SURGEON: EVY BALBUENA ANESTHESIA: LMAC TISSUE REMOVED OR ALTERED: As noted above. COMPLICATIONS: None. ESTIMATED BLOOD LOSS: None. INTRAOPERATIVE FINDINGS: As noted above. PROCEDURE: Patient tolerated the procedure well. No immediate postprocedure complications are noted. Patient is discharged in good condition. Discharge date 08/27/2019. Discharge diet: Regular. Discharge activity: Regular. 2 to 3-week follow-up to discuss findings. Patient is instructed to call the office or proceed to the emergency room should there be any further proximal questions. Wait on the pathology.
== END 2019-08-27 11:11 | disposition home or self-care (01) ==
LOC: END 09:44
PROVIDERS: ATTEND Internal Medicine Gastroenterology
DX: K44.9 Diaphragmatic hernia without obstruction or gangrene (principal); K29.80 Duodenitis without bleeding; K29.50 Unspecified chronic gastritis without bleeding; J44.9 Chronic obstructive pulmonary disease, unspecified; F17.210 Nicotine dependence, cigarettes, uncomplicated; I20.9 Angina pectoris, unspecified; Z79.899 Other long term (current) drug therapy
CPT/HCPCS: 43239; 88305 ×2; J2704

== ENCOUNTER 2019-08-28 13:34 | Day surgery (SDC) | payer MEDICARE, MEDICAID ==
[~2019-08-28 13:34] MED LIST changes: +CEFAZOLIN SODIUM 2 GM in DEXTROSE 5%-WATER 100 ML IV PRN; -PROPOFOL INJ 200 MG/20 ML VIAL IV ONE
[2019-08-28] MEDS ORDERED: BUPIVACAINE HCL 0.5 % INJ/PF 30 ML SDV ONE (16:54)
[2019-08-28] MEDS ORDERED: LIDOCAINE 1% INJ-PF (10 MG/ML) 30 ML SDV ONE (16:55)
[2019-08-28] MEDS ORDERED: PROPOFOL INJ 200 MG/20 ML VIAL IV ONE (16:55)
[2019-08-28] MEDS ORDERED: MIDAZOLAM 2 MG/2 ML INJ ONE (16:56)
[2019-08-28] MEDS ORDERED: MORPHINE SULFATE 10 MG/ML INJ IV PRN ×2 (17:43→18:10)
[2019-08-28] MEDS ORDERED: DIPHENHYDRAMINE HCL 50 MG/ML VIAL IV PRN (17:43)
[2019-08-28] MEDS ORDERED: PROMETHAZINE HCL INJ 25 MG/1 ML VIAL IV PRN ×2 (17:43)
[2019-08-28] MEDS ORDERED: MEPERIDINE HCL/PF INJ 25 MG/1 ML DISP.SYRIN IV PRN (17:43)
[2019-08-28] MEDS ORDERED: FENTANYL CITRATE INJ/PF 100 MCG/2 ML AMPUL IV PRN ×3 (17:43)
[2019-08-28] MEDS ORDERED: ONDANSETRON HCL INJ/PF 4 MG/2 ML SDV IV PRN (18:10)
--- NOTE | 2019-08-28 18:10 | Discharge Summary ---
Discharge Summary (SDC) - Discharge Final Diagnosis: Left middle finger extensor tendon laceration Date of Surgery: 08/28/19 Discharge Date: 08/28/19 Condition: Good Treatment or Instructions: Schedule Follow Up w/ Dr. Sean Mercado @ [facility] to be seen in 10-14 days or as scheduled [place]: [place]: [place]: Ice and elevate Keep splint clean/dry/intact, do not remove. If your fingers become numb please unwrap the [place] wrap but leave the splint in place, if the sensation does not return within 30 minutes please return to the emergency department. May begin finger range of motion attempting to make full fist. Please use ibuprofen (Motrin or Advil) 600-800 mg every 8 hours as needed for pain or fever DO NOT TAKE w/ TORADOL may use once TORADOL complete. You may also use acetaminophen (Tylenol) 1000 mg every 4-6 hours as needed for pain or fever. Please be aware that many medications contain acetaminophen, do not exceed a total of 1000 mg of acetaminophen every 6 hours. If ibuprofen and acetaminophen are not sufficient for your pain you may take the Percocet/[place]. Please be aware that the Percocet/[place] does contain Tylenol. Stool softener of choice when on pain medication. USE OF QCRH-HAC-UUNZFEU IBUPROFEN: Ibuprofen (Advil, Nuprin, Medipren, Motrin IB) is a medication for fever and pain control. In addition, it has anti- inflammatory effects which may be beneficial, especially in the treatment of injuries. It's best to take ibuprofen with food. Persons with ulcer disease or allergy to aspirin should notify their physician of this before taking ibuprofen. Ibuprofen can be given every four to six hours, for a total of four doses daily. Age Pain or fever dose Antiinflammatory dose 6-8 yr 200 mg (1 tab) 200 mg (1 tab) 9-11 yr 200 mg (1 tab) 200-400 mg (1-2 tab) 11-14 yr 200-400 mg (1-2 tab) 400 mg (2 tab) 15-adult 400 mg (2 tab) 600 mg (3 tab) ORAL NARCOTIC MEDICATION: You have been given a prescription for pain control. This medication is a narcotic. It's best taken with food, as nausea can result if taken on an empty stomach. Don't operate machinery or drive within six hours of taking this medication. Do not combine this medicine with alcohol, or with any medication which can cause sedation (such as cold tablets or sleeping pills) unless you get permission from the physician. Narcotics tend to cause constipation. If possible, drink plenty of fluids and eat a diet high in fiber and fruits. Please be aware that prescription narcotics also have the potential for abuse. People become addicted to these medications because of the general sense of wellbeing that they induce. This feeling along with a significant reduction in tension, anxiety, and aggression provides a stimulating seductive quality to these drugs. Once your pain is under control, we encourage you to discard your unused narcotics. Prescriptions: Hydrocodone/Acetaminophen [[place] 5-325 mg Tablet] 1 tab PO Q6 PRN #20 tablet PRN Reason: Referrals: TIFFANIE SANTIAGO MD [Primary Care Provider] - Discharge Diet: As Tolerated Respiratory Treatments at Home: Deep Breathing/Coughing Discharge Activity: No Lifting Over 10 Pounds, No Lifting/Push/Pulling Report the Following to Your Physician Immediately: Fever over 101 Degrees, Unusual Bleeding, Redness, Swelling, Warmth, Increased Soreness
--- NOTE | 2019-08-28 18:12 | Operative Report ---
Operative Report DATE OF SURGERY: 08/28/19 PREOPERATIVE DIAGNOSIS: Left middle finger zone I extensor tendon laceration POSTOPERATIVE DIAGNOSIS: Same OPERATION: Left middle finger zone 1 extensor tendon repair with transarticular DIP joint pinning SURGEON: BALDO ANDREW ANESTHESIA: LMAC COMPLICATIONS: None ESTIMATED BLOOD LOSS: Minimal PROCEDURE: Indication for above procedure: 59-year-old female who sustained self-inflicted laceration from a razor blade to her left middle finger and ring finger. Patient was seen in the emergency room where the area was irrigated and loosely closed. Patient developed inability to fully extend her digit. Patient was seen by an outside orthopedic provider and surgery was recommended and patient was referred to me. At that point we discussed treatment options including operative versus nonoperative intervention risk and benefits were explained patient verbalized understanding consented for surgical procedure. My trigger finger release procedure In Detail: Patient was seen and evaluated in the preoperative holding area. The LEFT upper extremity was initialized and marked. Patient received 2g of Ancef IV for bacterial prophylaxis. Patient was taken back to the operative room where transferred to the operative table. Once they were adequately anesthetized a nonsterile tourniquet was placed on the upper extremity. A surgical team debriefing was performed ensuring all instrumentation was available, the surgical procedure was discussed with possible concerns reviewed. A digital blo ck was performed utilizing 10 mL of 1% lidocaine without epinephrine. The upper extremity was prepped with chlorhexidine and alcohol and draped in a sterile fashion. A timeout was done identifying correct patient, procedure and extremity everyone in attendance agree with this and verbalized no concerns. The extremity was exsanguinated the tourniquet was inflated to 250 mmHg. A 0.045 K wire was placed transarticular across the DIP joint with the joint at neutral extension. C-arm fluoroscopy was obtained confirming appropriate hardware placement and joint alignment. Sutures were removed skin laceration was opened there was complete laceration of the extensor tendon. Friable tissue was noted proximally and distally. Skin incision was extended proximally longitudinal incision to expose the proximal portion of the extensor tendon. A running Silverskiold stitch was performed utilizing 4-0 FiberWire suture. To reinforce the repair dermodesis was performed with 4-0 nylon suture to close the skin. Wound was dressed with Xeroform 4 x 4's and a volar AlumaFoam splint. Sponge counts, instrument counts, needle counts counts were correct. Patient was then awoken from anesthesia. Transferred from the operating room table to the operating room stretcher. There was no intraoperative complications patient tolerated procedure well stable to PACU. Postoperative plan: Patient will follow-up as scheduled for wound check. We will proceed with pin removal 8 weeks postoperatively. They will call with any questions or concerns.
--- NOTE | 2019-08-28 19:19 | RADIOLOGY REPORT (SQ) ---
EXAM DESCRIPTION: NO CHG FLUORO; FINGER LEFT COMPLETED DATE/TIME: 08/28/2019 7:05 pm REASON FOR STUDY: PERC PINNING 3RD DIGIT S61.213A LACERATION W/O FB OF L MID FINGER W/O DAMAGE TO N AI COMPARISON: None. FLUOROSCOPY TIME: 6 seconds 2 images saved to PACS. TECHNIQUE: Intra-operative images acquired during surgical procedure to evaluate progress. NUMBER OF IMAGES: 2 LIMITATIONS: None. FINDINGS: Images reveal percutaneous pinning across the DIP joint long finger. Please correlate wit h operative note. IMPRESSION: IMAGE(S) OBTAINED DURING PROCEDURE. COMMENT: Quality ID 145: Final reports for procedures using fluoroscopy that document radiation exp osure indices, or exposure time and number of fluorographic images (if radiation exposure indices are not available) Please consult full operative report of the attending physician for description of the procedure. TECHNICAL DOCUMENTATION: JOB ID: [id number] 2010 [employer]- All Rights Reserved Reading location - IP/workstation name: [email or web address]
--- NOTE | 2019-08-28 19:19 | RADIOLOGY REPORT (SQ) ---
EXAM DESCRIPTION: NO CHG FLUORO; FINGER LEFT COMPLETED DATE/TIME: 08/28/2019 7:05 pm REASON FOR STUDY: PERC PINNING 3RD DIGIT S61.213A LACERATION W/O FB OF L MID FINGER W/O DAMAGE TO N AI COMPARISON: None. FLUOROSCOPY TIME: 6 seconds 2 images saved to PACS. TECHNIQUE: Intra-operative images acquired during surgical procedure to evaluate progress. NUMBER OF IMAGES: 2 LIMITATIONS: None. FINDINGS: Images reveal percutaneous pinning across the DIP joint long finger. Please correlate wit h operative note. IMPRESSION: IMAGE(S) OBTAINED DURING PROCEDURE. COMMENT: Quality ID 145: Final reports for procedures using fluoroscopy that document radiation exp osure indices, or exposure time and number of fluorographic images (if radiation exposure indices are not available) Please consult full operative report of the attending physician for description of the procedure. TECHNICAL DOCUMENTATION: JOB ID: [id number] 2010 [employer]- All Rights Reserved Reading location - IP/workstation name: [email or web address]
[2019-08-28 20:01] VITALS: BP 113/71
== END 2019-08-28 19:30 | disposition home or self-care (01) ==
LOC: OROUT 13:34
PROVIDERS: ATTEND Orthopaedic Surgery
DX: S66.323A Laceration of extensor muscle, fascia and tendon of left middle finger at wrist and hand level, initial encounter (principal); S61.213A Laceration without foreign body of left middle finger without damage to nail, initial encounter; W26.0XXA Contact with knife, initial encounter; Z79.899 Other long term (current) drug therapy; Z79.51 Long term (current) use of inhaled steroids; E03.9 Hypothyroidism, unspecified; F17.210 Nicotine dependence, cigarettes, uncomplicated; J44.9 Chronic obstructive pulmonary disease, unspecified
CPT/HCPCS: 73140; 01810; 26415; C1769; J2250; J3490 ×2; J0690; J7060; J2704

== ENCOUNTER → 2019-09-10 | Outpatient (CLI) | payer MEDICARE, MEDICAID ==
--- NOTE | 2019-09-10 10:49 | RADIOLOGY REPORT (SQ) ---
EXAM DESCRIPTION: BARIUM SWALLOW ESOPHAGUS COMPLETED DATE/TIME: 09/10/2019 9:14 am REASON FOR STUDY: (R13.10)DYSPHAGIA, UNSPECIFIED R13.10 DYSPHAGIA, UNSPECIFIED history lung cancer with right lobectomy COMPARISON: Upper GI 07/21/[address] 07/19/2016. TECHNIQUE: Under fluoroscopic guidance, patient ingested effervescent granules followed by thick and thin barium. Fluoroscopic spot images and routine radiographic images acquired and stored on PACS. 12 MM BARIUM TABLET GIVEN: Yes. No significant delay in passage. LIMITATIONS: None. FLUOROSCOPY TIME: FLUORO TIME: 3.3 minutes of fluoroscopy was used. 15 images saved to PACS. FINDINGS: NEUROMUSCULAR COORDINATION OF SWALLOW: Normal. No aspiration. ESOPHAGEAL MOTILITY: Slow primary peristalsis. No esophageal spasm. ESOPHAGEAL MUCOSA: There is tortuosity of the proximal esophagus to the right at the thoracic inlet a djacent to a radiopaque density in the upper mediastinum. Unsure if this tortuosity is related to th e rib radiopaque density but may represent tethering of the proximal esophagus due to reactive respon se to the form body. CT the chest is recommended for further evaluation. No masses or ulcerations a re identified. Chronic dilatation of the distal esophagus. GASTRO-ESOPHAGEAL JUNCTION: Small sliding hiatal hernia. No significant gastroesophageal reflux was elicited. 12 mm barium tablet passed through the GE junction without delay. NON-GI TRACT STRUCTURES: Scoliosis with curvature of the spine to the right OTHER: Radiopaque foreign body seen adjacent to the proximal esophagus at the thoracic inlet. Patien t states foreign body was noticed postoperatively after right lobectomy. IMPRESSION: TORTUOSITY OF THE PROXIMAL ESOPHAGUS TO THE RIGHT AT THE THORACIC INLET ADJACENT TO RADI OPAQUE FOREIGN BODY THAT MAY REPRESENT TETHERING DUE TO REACTIVE RESPONSE TO THE FOREIGN BODY RECOMME ND CT THE CHEST FOR FURTHER EVALUATION. SMALL SLIDING HIATAL HERNIA WITHOUT EVIDENCE OF STRICTURE OR REFLUX. COMMENT: Quality ID 145: Final reports for procedures using fluoroscopy that document radiation exp osure indices, or exposure time and number of fluorographic images (if radiation exposure indices are not available) TECHNICAL DOCUMENTATION: JOB ID: [id number] 2010 [employer]- All Rights Reserved Reading location - IP/workstation name: [email or web address] [id number]
== END ==
LOC: RAD 08:32
PROVIDERS: ATTEND Internal Medicine Gastroenterology
DX: R13.10 Dysphagia, unspecified (principal)
CPT/HCPCS: 74220

== ENCOUNTER 2019-10-02 21:51 | Emergency (ER) | payer MEDICARE, MEDICAID ==
--- NOTE | 2019-10-02 22:41 | ER Document Report ---
ED General - General Chief Complaint: Skin Problem Stated Complaint: POSSIBLE FINGER INFECTION Time Seen by Provider: 10/02/19 22:24 Primary Care Provider: TIFFANIE SANTIAGO MD [Primary Care Provider] - Follow up as needed Mode of Arrival: Ambulatory Information source: Patient Notes: 59-year-old female presented to ED for complaint of pain to her left middle fing er. She states she had surgery on this finger in August and she had a follow-up appointment yesterday was started on Bactrim. Dr. Andrew did this surgery to repair an extensor tendon. States at sometime in the past her doctor told her that she was immunocompromised and if she ever got a blood infection it would kill her so she is 6 family afraid that she will get a blood infection in this finger. There is mild redness and swelling to the area. There is no drainage no fever. She was seen by the surgeon yesterday. She does have a history of COPD and has started smoking again and now smokes about 15 cigarettes a day drinks occasionally and does not use any illicit drugs. She does live with her family. TRAVEL OUTSIDE OF THE [place] IN LAST 30 DAYS: No - HPI Onset: Last week Onset/Duration: Gradual, Worse Quality of pain: Achy Severity: Severe Pain Level: 4 Associated symptoms: Other - Left middle finger red swollen tender recent surgery Exacerbated by: Movement Relieved by: Denies Similar symptoms previously: Yes Recently seen / treated by doctor: Yes - Related Data Allergies/Adverse Reactions: No Known Allergies Allergy (Verified 08/23/19 06:22) Home Medications: septra since yesterday Past Medical History - General Information source: Patient - Social History Smoking Status: Current Every Day Smoker Cigarette use (# per day): Yes - 15 to 20 cigarettes a day Smoking Education Provided: Yes - 4 minutes Frequency of alcohol use: Occasional Drug Abuse: None Lives with: Family Family History: Reviewed & Not Pertinent Patient has suicidal ideation: No Patient has homicidal ideation: No - Past Medical History Cardiac Medical History: Reports: None Pulmonary Medical History: Reports: Hx COPD EENT Medical History: Reports: None Neurological Medical History: Reports: None Endocrine Medical History: Reports: None Renal/ Medical History: Reports: None Malignancy Medical History: Reports: Hx Lung Cancer - Status post right lower lobe resection GI Medical History: Reports: Hx Gastroesophageal Reflux Disease Musculoskeletal Medical History: Reports Hx Arthritis - OSTEO, Reports Hx Musculoskeletal Deformity, Reports Hx Musculoskeletal Trauma Skin Medical History: Reports None Psychiatric Medical History: Reports: Hx Anxiety, Hx Attention Deficit Hyperactivity Disorder Traumatic Medical History: Reports: None Infectious Medical History: Reports: None Past Surgical History: Reports: Hx Appendectomy, Hx Hysterectomy, Hx Orthopedic Surgery - extensor tendon repair to the left middle finger - Immunizations Hx Diphtheria, Pertussis, Tetanus Vaccination: Yes Review of Systems - Review of Systems Constitutional: No symptoms reported EENT: No symptoms reported Cardiovascular: No symptoms reported Respiratory: No symptoms reported Gastrointestinal: No symptoms reported Genitourinary: No symptoms reported Female Genitourinary: No symptoms reported Musculoskeletal: Other - Left middle finger swelling red pain Skin: Other - Same Hematologic/Lymphatic: No symptoms reported Neurological/Psychological: No symptoms reported -: Yes All other systems reviewed and negative Physical Exam - Vital signs Vitals: Temp Pulse Resp BP Pulse Ox 98.2 F 96 19 136/84 H 98 10/02/19 22:02 10/02/19 22:02 10/02/19 22:02 10/02/19 22:02 10/02/19 22:02 Interpretation: Normal - General General appearance: Appears well, Alert - HEENT Head: Normocephalic, Atraumatic Eyes: Normal Pupils: PERRL - Respiratory Respiratory status: No respiratory distress Chest status: Nontender Breath sounds: Normal Chest palpation: Normal - Cardiovascular Rhythm: Regular Heart sounds: Normal auscultation Murmur: No - Abdominal Inspection: Normal Distension: No distension Bowel sounds: Normal Tenderness: Nontender Organomegaly: No organomegaly - Back Back: Normal, Nontender - Extremities General upper extremity: Normal temperature General lower extremity: Normal inspection, Nontender, Normal color, Normal ROM, Normal temperature, Normal weight bearing. No: Jere's sign Hand: Tender, No evidence of human bite, No evidence of FB, Swelling, Other - Left third finger swelling erythema tender to palpation - Neurological Neuro grossly intact: Yes Cognition: Normal Orientation: AAOx4 Chuck Coma Scale Eye Opening: Spontaneous Chuck Coma Scale Verbal: Oriented Chuck Coma Scale Motor: Obeys Commands [place] Coma Scale Total: 15 Speech: Normal Motor strength normal: LUE, RUE, LLE, RLE Sensory: Normal - Psychological Associated symptoms: Normal affect, Normal mood - Skin Skin Temperature: Warm Skin Moisture: Dry Skin Color: Normal Course - Re-evaluation Re-evalutation: 10/03/19 00:01 Yazmin labs and x-ray with patient and written report of labs and x-ray given to patient. Patient verbalized understanding of need to follow-up with Dr. mcclelland, take antibiotics as prescribed, and elevate the injury. I did discuss this with who agreed with treatment plan. - Vital Signs Vital signs: Temp Pulse Resp BP Pulse Ox 98.2 F 96 19 136/84 H 98 10/02/19 22:02 10/02/19 22:02 10/02/19 22:02 10/02/19 22:02 10/02/19 22:02 - Laboratory Result Diagrams: 10/02/19 23:11 10/02/19 23:11 Laboratory results interpreted by me: 10/02/19 10/02/19 23:11 23:11 Hgb 10.8 L Hct 30.8 L RDW 14.1 H Sodium 135.2 L - Diagnostic Test Radiology reviewed: Image reviewed, Reports reviewed Discharge - Discharge Clinical Impression: Pain left middle finger postsurgical Condition: Stable Disposition: HOME, SELF-CARE Additional Instructions: You were seen today for concern about the redness and swelling to your left middle finger after surgery. Lab work is normal as I have shown you and given you a copy. Your x-ray does not show any abnormalities at this time. Please take your antibiotics as they have been prescribed by Dr. Andrew. Elevate the finger. These call Dr. Andrew if you have any further concerns about your injury. FOLLOW-UP CARE: If you have been referred to a physician for follow-up care, call the physicians office for an appointment as you were instructed or within the next two days. If you experience worsening or a significant change in your symptoms, notify the physician immediately or return to the [facility] for re-evaluation. Forms: Elevated Blood Pressure, Smoking Cessation Education Referrals: BALDO ANDREW, [ACTIVE STAFF] - Follow up as needed
--- NOTE | 2019-10-02 22:44 | RADIOLOGY REPORT (SQ) ---
CLINICAL INDICATION: bone pain. . TECHNIQUE: 3 view(s) obtained of the left third digit. COMPARISON: None available. FINDINGS: No acute displaced fracture is identified. Alignment appears anatomic. Postsurgical change with a pin stabilizing the third middle and distal phalanx. Surrounding soft tissues are unremarkable. IMPRESSION: No acute displaced fracture is identified. Postsurgical change
[2019-10-02 23:16] LABS: ABSOLUTE BASOPHILS # (AUTO) 0.1 10^3/uL (0.0-0.2); ABSOLUTE LYMPHOCYTES (AUTO) 1.8 10^3/uL (0.5-4.7); ABSOLUTE MONOCYTES (AUTO) 0.5 10^3/uL (0.1-1.4); ABSOLUTE NEUT (AUTO) 7.6 10^3/uL (1.7-8.2); BASOPHILS % (AUTO) 0.8 % (0-2); EOSINOPHILS % (AUTO) 0.5 % (0-6); HEMATOCRIT 30.8 % (36.0-47.0); HEMOGLOBIN 10.8 g/dL (12.0-15.5); LYMPHOCYTES % (AUTO) 18.2 % (13-45); MEAN CORPUSCULAR HEMOGLOBIN 29.1 pg (27.0-33.4); MEAN CORPUSCULAR HGB CONC 35.1 g/dL (32.0-36.0); MEAN CORPUSCULAR VOLUME 83 fl (80-97); MONOCYTES % (AUTO) 5.4 % (3-13); PLATELET COUNT 351 10^3/uL (150-450); RED BLOOD COUNT 3.72 10^6/uL (3.72-5.28); RED CELL DISTRIBUTION WIDTH 14.1 % (11.5-14.0); SEGMENTED NEUTROPHILS % (AUTO) 75.1 % (42-78); TOTAL CELLS COUNTED % (AUTO) 100 %; WHITE BLOOD COUNT 10.1 10^3/uL (4.0-10.5)
[2019-10-02 23:35] LABS: ALBUMIN 4.4 g/dL (3.5-5.0); ALKALINE PHOSPHATASE 98 U/L (38-126); ANION GAP 7 (5-19); ASPARTATE AMINO TRANSFERASE 28 U/L (14-36); BILIRUBIN,DIRECT 0.3 mg/dL (0.0-0.4); BILIRUBIN,TOTAL 0.4 mg/dL (0.2-1.3); BLOOD UREA NITROGEN 14 mg/dL (7-20); CALCIUM 9.5 mg/dL (8.4-10.2); CARBON DIOXIDE 22 mmol/L (22-30); CHLORIDE 106 mmol/L (98-107); GLUCOSE 103 mg/dL (75-110); POTASSIUM 4.2 mmol/L (3.6-5.0); TOTAL PROTEIN 6.9 g/dL (6.3-8.2)
[2019-10-03 00:10] VITALS: BP 128/61
== END 2019-10-03 00:25 | disposition home or self-care (01) ==
LOC: ER 21:51
DX: G89.18 Other acute postprocedural pain (principal); M79.645 Pain in left finger(s); F17.210 Nicotine dependence, cigarettes, uncomplicated
CPT/HCPCS: 36415; 80053; 85025; 87040; 99283; 99406

== ENCOUNTER 2019-10-26 19:06 | Inpatient (IN) | payer MEDICARE, MEDICAID ==
[2019-10-26] MEDS ORDERED: DEXTROSE 50%-WATER 25 GM/50 ML DISP.SYRIN IV PRN ×2 (19:48)
[2019-10-26] MEDS ORDERED: GLUCAGON,HUMAN RECOMB 1 MG INJ SUBCUT PRN (19:48)
[2019-10-26] MEDS ORDERED: DEXTROSE 40% GEL 15 GM TUBE PO PRN ×2 (19:48)
[2019-10-26] MEDS ORDERED: OXYCODONE-ACETAMINOPHEN 5-325 MG TABLET PO PRN (19:53)
[2019-10-26 20:27] LABS: ABSOLUTE BASOPHILS # (AUTO) 0.1 10^3/uL (0.0-0.2); ABSOLUTE EOSINOPHILS # (AUTO) 0.5 10^3/uL (0.0-0.6); ABSOLUTE LYMPHOCYTES (AUTO) 2.7 10^3/uL (0.5-4.7); ABSOLUTE MONOCYTES (AUTO) 0.3 10^3/uL (0.1-1.4); ABSOLUTE NEUT (AUTO) 2.6 10^3/uL (1.7-8.2); BASOPHILS % (AUTO) 1.2 % (0-2); EOSINOPHILS % (AUTO) 8.2 % (0-6); HEMATOCRIT 36.1 % (36.0-47.0); HEMOGLOBIN 12.5 g/dL (12.0-15.5); LYMPHOCYTES % (AUTO) 43.8 % (13-45); MEAN CORPUSCULAR HEMOGLOBIN 28.6 pg (27.0-33.4); MEAN CORPUSCULAR HGB CONC 34.7 g/dL (32.0-36.0); MEAN CORPUSCULAR VOLUME 83 fl (80-97); MONOCYTES % (AUTO) 5.4 % (3-13); PLATELET COUNT 361 10^3/uL (150-450); RED BLOOD COUNT 4.37 10^6/uL (3.72-5.28); SEGMENTED NEUTROPHILS % (AUTO) 41.4 % (42-78); TOTAL CELLS COUNTED % (AUTO) 100 %; WHITE BLOOD COUNT 6.2 10^3/uL (4.0-10.5)
[2019-10-26 20:42] LABS: ANION GAP 8 (5-19); BLOOD UREA NITROGEN 17 mg/dL (7-20); CALCIUM 9.8 mg/dL (8.4-10.2); CARBON DIOXIDE 25 mmol/L (22-30); CHLORIDE 102 mmol/L (98-107); GLUCOSE 116 mg/dL (75-110); POTASSIUM 4.3 mmol/L (3.6-5.0)
[2019-10-26 20:47] LABS: C-REACTIVE PROTEIN < 5.0 mg/L (<10.0)
[2019-10-26 21:03] LABS: ERYTHROCYTE SEDIMENTATION RATE 10 mm/hr (0-30)
[2019-10-26] MEDS: RINGERS SOLUTION,LACTATED 1,000 ML IV PRN (22:12)
--- NOTE | 2019-10-27 08:06 | PDOC H&P ---
History of Present Illness Admission Date/PCP: 10/26/19 19:06 TIFFANIE SANTIAGO MD Patient complains of: Left middle finger pain History of Present Illness: SHAR SANCHEZ is a 59 year old female who sustained a laceration to her left middle finger approximately 2 months ago and subsequently underwent extensor tendon repair. Unfortunately patient developed redness and drainage from the digit and antibiotics were given however she continued to have redness and swelling. Patient was seen in the office on 10/26/2019 with persistent pain radiographs concerning for possible infection. At that point decision was made to proceed with operative intervention. Patient denies fever chills or sweats. Current pain 07/06. Past Medical History Cardiac Medical History: Denies: Congestive Heart Failure, Coronary Artery Disease, Myocardial Infarction, Hypertension, Heart Murmur Pulmonary Medical History: Reports: Chronic Obstructive Pulmonary Disease (COPD) Denies: Asthma, Bronchitis, Pneumonia, Tuberculosis Neurological Medical History: Denies: Seizures Malignancy Medical History: Reports: Lung Cancer - Status post right lower lobe resection GI Medical History: Reports: Gastroesophageal Reflux Disease Denies: Hepatitis, Hiatal Hernia Musculoskeltal Medical History: Reports: Arthritis - OSTEO Psychiatric Medical History: Reports: Attention Deficit Hyperactivity Disorder Denies: Depression Hematology: Denies: Anemia, Sickle Cell Disease Past Surgical History Past Surgical History: Reports: Appendectomy, Hysterectomy, Orthopedic Surgery - extensor tendon repair to the left middle finger Denies: Amputation, Mastectomy, Pacemaker Social History Smoking Status: Current Some Day Smoker Frequency of Alcohol Use: None Hx Recreational Drug Use: No Family History Family History: Reviewed & Not Pertinent Parental Family History Reviewed: No Children Family History Reviewed: No Sibling(s) Family History Reviewed.: No Medication/Allergy Home Medications: Levothyroxine Sodium [Synthroid] 250 mcg PO Q6AM 10/12/12 Buspirone HCl 30 mg PO Q12 10/28/17 Dexlansoprazole [Dexilant 60 mg Capsule] 60 mg PO Q6AM 10/28/17 Dextroamphetamine/Amphetamine [Adderall XR 20 mg Capsule] 2 cap PO QAM 10/28/17 Gabapentin 600 mg PO TIDP PRN 10/28/17 Zolpidem Tartrate [Ambien] 10 mg PO HSP PRN 10/28/17 Alprazolam 0.25 mg PO BIDP PRN 05/01/20 Amitriptyline HCl [Elavil 25 mg Tablet] 12.5 mg PO HSP PRN MDD 75 MG 10/26/19 Budesonide/Formoterol Fumarate [Symbicort HFA 160-4.5 mcg Inhaler 6 gm] 2 puff IH Q12 10/26/19 Tiotropium [place] [Spiriva Handihaler 5 Cap/Kit (18 Mcg/Cap)] 1 inh IH DAILY 10/26/19 Allergies/Adverse Reactions: No Known Allergies Allergy (Verified 08/23/19 06:22) Review of Systems Constitutional: ABSENT: chills, fever(s), headache(s), weight gain, weight loss Eyes: ABSENT: visual disturbances Ears: ABSENT: hearing changes Cardiovascular: ABSENT: chest pain, dyspnea on exertion, edema, orthropnea, palpitations Respiratory: ABSENT: cough, hemoptysis Gastrointestinal: ABSENT: abdominal pain, constipation, diarrhea, hematemesis, hematochezia, nausea, vomiting Genitourinary: ABSENT: dysuria, hematuria Integumentary: ABSENT: rash, wounds Neurological: ABSENT: abnormal gait, abnormal speech, confusion, dizziness, focal weakness, syncope Psychiatric: ABSENT: anxiety, depression, homidical ideation, suicidal ideation Endocrine: ABSENT: cold intolerance, heat intolerance, menstrual abnormalities, polydipsia, polyuria Hematologic/Lymphatic: ABSENT: easy bleeding, easy bruising, lymphadenopathy Physical Exam Vital Signs: Temp Pulse Resp BP Pulse Ox 98.1 F 78 16 110/55 L 100 10/27/19 07:43 10/27/19 07:43 10/27/19 07:43 10/27/19 07:43 10/27/19 07:43 Intake & Output 10/26/19 10/27/19 10/28/19 06:59 06:59 06:59 Intake Total 450 Balance 450 Weight 48.3 kg General appearance: PRESENT: no acute distress, well-developed, well-nourished Head exam: PRESENT: atraumatic, normocephalic Eye exam: PRESENT: conjunctiva pink, EOMI, PERRLA. ABSENT: scleral icterus Ear exam: PRESENT: normal external ear exam Mouth exam: PRESENT: moist, tongue midline Neck exam: PRESENT: full ROM. ABSENT: carotid bruit, JVD, lymphadenopathy, thyromegaly Cardiovascular exam: PRESENT: RRR. ABSENT: diastolic murmur, rubs, systolic murmur Pulses: PRESENT: normal dorsalis pedis pul, +2 pedal pulses bilateral Vascular exam: PRESENT: normal capillary refill GI/Abdominal exam: PRESENT: normal bowel sounds, soft. ABSENT: distended, guarding, mass, organolmegaly, rebound, tenderness Rectal exam: PRESENT: deferred Musculoskeletal exam: PRESENT: other - Left middle finger: Redness and swelling along the DIP joint with tenderness upon palpation. No palpable fluctuance. 45 degree extension lag. Swelling noted throughout the digit. Instability of the DIP joint. Neurological exam: PRESENT: alert, awake, oriented to person, oriented to place, oriented to time, oriented to situation, CN II-XII grossly intact. ABSENT: motor sensory deficit Psychiatric exam: PRESENT: appropriate affect, depressed. ABSENT: homicidal ideation, suicidal ideation Skin exam: PRESENT: dry, intact, warm. ABSENT: cyanosis, rash Results Laboratory Results: 10/26/19 20:11 10/26/19 20:11 10/26/19 10/26/19 20:11 20:11 WBC 6.2 RBC 4.37 Hgb 12.5 Hct 36.1 MCV 83 MCH 28.6 MCHC 34.7 RDW 15.0 H Plt Count 361 Seg Neutrophils % 41.4 L Sodium 135.1 L Potassium 4.3 Chloride 102 Carbon Dioxide 25 Anion Gap 8 BUN 17 Creatinine 0.66 Est GFR ( Amer) > 60 Glucose 116 H Calcium 9.8 C-Reactive Protein < 5.0 Assessment & Plan - Diagnosis (1) Cellulitis of left middle finger Is this a current diagnosis for this admission?: Yes Plan: Patient continued have redness and swelling of her left middle finger despite antibiotics and conservative treatment radiographs at our office demonstrated os teolysis of the distal phalanx which was concerning for possible osteomyelitis especially given patient's persistent redness and swelling although patient has had negative constitutional symptoms and lab values up to this point including yesterday's normal sed rate, CRP and white blood cell count. Unfortunately she is unable to obtain a MRI due to retained metal. Given the above symptoms and persistence the along with radiographic findings decision was made to proceed with operative intervention which includes irrigation and removal of the left middle finger to obtain cultures of the distal phalanx to evaluate from osteomyelitis. Patient understands he may require 6 weeks of IV antibiotics pending cultures. If cultures are negative alternative includes continuing p.o. antibiotics. Discussing risk benefits joint decision was made to proceed with operative intervention.
[2019-10-27] MEDS ORDERED: LIDOCAINE 1% INJ-PF (10 MG/ML) 30 ML SDV ONE (08:16)
[2019-10-27] MEDS ORDERED: CEFAZOLIN INJ 1 GM VIAL ONE (08:24)
--- NOTE | 2019-10-27 09:16 | Operative Report ---
Operative Report DATE OF SURGERY: 10/27/19 PREOPERATIVE DIAGNOSIS: Left middle finger cellulitis POSTOPERATIVE DIAGNOSIS: Same OPERATION: Irrigation treatment left middle finger with bone biopsy SURGEON: BALDO ANDREW ANESTHESIA: LMAC TISSUE REMOVED OR ALTERED: Aerobic, anaerobic, AFB, fungal culture COMPLICATIONS: None ESTIMATED BLOOD LOSS: Minimal PROCEDURE: Indication for above procedure: 59-year-old female with redness and swelling of her left middle finger after extensor tendon repair. Patient continued to have redness and swelling despite negative labs and inability to obtain MRI decision was made to proceed with operative irrigation debridement to obtain adequate cultures. In the meantime patient will be treated empirically with IV antibiotics pending cultures. Procedure In Detail: Patient was seen and evaluated in the preoperative holding area. The RIGHT upper extremity was initialized and marked. Patient received 2g of Ancef IV for bacterial prophylaxis. Patient was taken back to the operative room where transferred to the operative table.A surgical team debriefing was performed ensuring all instrumentation was available, the surgical procedure was discussed with possible concerns reviewed. A digital block was performed utilizing 10 mL of 1% lidocaine without epinephrine. The upper extremity was prepped with chlorhexidine and alcohol and draped in a sterile fashion. A timeout was done identifying correct patient, procedure and extremity everyone in attendance agree with this and verbalized no concerns. Digital tourniquet was placed Previous transverse skin dorsally was utilized. Blunt dissection was performed portion of the extensor tendon was healing however given concerns of possible foreign body reaction the remaining FiberWire suture was removed leaving a portion of the extensor tendon intact. There is no purulence encountered proximally or distally. No syncope DIP joint effusion was appreciated. No significant bone softening was appreciated. A small portion of the distal phalanx bone dorsally was removed and sent for aerobic, anaerobic, AFB and boone al culture. A second soft tissue culture was also obtained. Wound was copiously irrigated with normal saline. Incision was closed with dermodesis type closure with 4-0 nylon suture. Digital tourniquet was removed patient had normal peripheral perfusion. Wound was dressed Xeroform 4 x 4's and a loosely applied Coban bandage from distally to proximally. Sponge counts, instrument counts, needle counts counts were correct. Patient was then awoken from anesthesia. Transferred from the operating room table to the operating room stretcher. There was no intraoperative complications patient tolerated procedure well stable to PACU.
[2019-10-27] MEDS ORDERED: CEFTRIAXONE INJ 1000 MG VIAL IV SCH (10:00)
[2019-10-27] MEDS ORDERED: VANCOMYCIN HCL INJ 1000 MG VIAL IV SCH (10:00)
[2019-10-27] MEDS: CEFTRIAXONE 1 GM/D5W RTU 1 GM/50 ML RTUPB IV SCH (10:27)
[2019-10-27] MEDS: VANCOMYCIN HCL 1,000 MG in DEXTROSE 5%-WATER 250 ML IV SCH (11:12)
--- NOTE | 2019-10-27 12:50 | PDOC CONSULTATION ---
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 Unfortunately patient developed redness and drainage from the digit, she was treated with oral antibiotic outpatient by the surgeon but the swelling persisted, unfortunately MRI could not be obtained because she has a metallic remnant left in her lung when she underwent lobectomy for lung cancer couple of years ago. The surgeon made a decision to admit and explore the finger she went to the OR this morning she underwent irrigation debridement of the finger with biopsy presently empirically on IV antibiotic vancomycin and ceftriaxone. I reviewed the lab work, there is no leukocytosis the markers of inflammation are normal including ESR and CRP, the blood culture so far is negative. Difficult to ascertain if the swelling is from infection or just inflammation secondary to a foreign body. I reviewed the operative note of the surgeon, there was no purulence, the FiberWire suture was removed there is a potential that the inflammatory swelling of the finger is secondary to the foreign body other than infection. I saw patient by the bedside she is in good spirits not in any distress Past Medical History Pulmonary Medical History: Reports: Chronic Obstructive Pulmonary Disease (COPD) Endocrine Medical History: Reports: Hypothyroidism Malignancy Medical History: Reports: Lung Cancer - Status post right lower lobe resection GI Medical History: Reports: Gastroesophageal Reflux Disease Musculoskeltal Medical History: Reports: Arthritis - OSTEO Psychiatric Medical History: Reports: Attention Deficit Hyperactivity Disorder Hematology: Past Surgical History Past Surgical History: Reports: Appendectomy, Hysterectomy, Orthopedic Surgery - extensor tendon repair to the left middle finger Social History Smoking Status: Current Some Day Smoker Frequency of Alcohol Use: None Hx Recreational Drug Use: No Family History Family History: Reviewed & Not Pertinent Parental Family History Reviewed: Yes Children Family History Reviewed: Yes Sibling(s) Family History Reviewed.: Yes Medication/Allergy Home Medications: Levothyroxine Sodium [Synthroid] 250 mcg PO Q6AM 10/12/12 Buspirone HCl 30 mg PO Q12 10/28/17 Dexlansoprazole [Dexilant 60 mg Capsule] 60 mg PO Q6AM 10/28/17 Dextroamphetamine/Amphetamine [Adderall XR 20 mg Capsule] 2 cap PO QAM 10/28/17 Gabapentin 600 mg PO TIDP PRN 10/28/17 Zolpidem Tartrate [Ambien] 10 mg PO HSP PRN 10/28/17 Alprazolam 0.25 mg PO BIDP PRN 10/26/19 Amitriptyline HCl [Elavil 25 mg Tablet] 12.5 mg PO HSP PRN MDD 75 MG 10/26/19 Budesonide/Formoterol Fumarate [Symbicort HFA 160-4.5 mcg Inhaler 6 gm] 2 puff IH Q12 10/26/19 Tiotropium [place] [Spiriva Handihaler 5 Cap/Kit (18 Mcg/Cap)] 1 inh IH DAILY 10/26/19 Allergies/Adverse Reactions: No Known Allergies Allergy (Verified 08/23/19 06:22) Review of Systems Constitutional: ABSENT: chills, fever(s), headache(s), weight gain, weight loss Eyes: ABSENT: visual disturbances Ears: ABSENT: hearing changes Cardiovascular: ABSENT: chest pain, dyspnea on exertion, edema, orthropnea, palpitations Respiratory: ABSENT: cough, hemoptysis Gastrointestinal: ABSENT: abdominal pain, constipation, diarrhea, hematemesis, hematochezia, nausea, vomiting Genitourinary: ABSENT: dysuria, hematuria Musculoskeletal: ABSENT: joint swelling Integumentary: ABSENT: rash, wounds Neurological: ABSENT: abnormal gait, abnormal speech, confusion, dizziness, focal weakness, syncope Psychiatric: ABSENT: anxiety, depression, homidical ideation, suicidal ideation Endocrine: ABSENT: cold intolerance, heat intolerance, menstrual abnormalities, polydipsia, polyuria Hematologic/Lymphatic: ABSENT: easy bleeding, easy bruising, lymphadenopathy Physical Exam Vital Signs: Temp Pulse Resp BP Pulse Ox 98.1 F 78 16 110/55 L 100 10/27/19 07:43 10/27/19 07:43 10/27/19 07:43 10/27/19 07:43 10/27/19 07:43 Intake & Output 10/26/19 10/27/19 10/28/19 06:59 06:59 06:59 Intake Total 450 290 Balance 450 290 Weight 48.3 kg General appearance: PRESENT: no acute distress, thin Head exam: PRESENT: atraumatic, normocephalic Eye exam: PRESENT: conjunctiva pink, EOMI, PERRLA Ear exam: PRESENT: normal external ear exam Mouth exam: PRESENT: moist, tongue midline Neck exam: PRESENT: full ROM Respiratory exam: PRESENT: clear to auscultation walter Cardiovascular exam: PRESENT: RRR, +S1, +S2 Vascular exam: PRESENT: normal capillary refill GI/Abdominal exam: PRESENT: normal bowel sounds, soft Rectal exam: PRESENT: deferred Extremities exam: PRESENT: other - Dressing of the left middle finger Neurological exam: PRESENT: alert, awake, oriented to person, oriented to place, oriented to time, oriented to situation, CN II-XII grossly intact Psychiatric exam: PRESENT: appropriate affect, normal mood Skin exam: PRESENT: dry, intact, warm Results Laboratory Results: 10/26/19 20:11 10/26/19 20:11 10/26/19 10/26/19 20:11 20:11 WBC 6.2 RBC 4.37 Hgb 12.5 Hct 36.1 MCV 83 MCH 28.6 MCHC 34.7 RDW 15.0 H Plt Count 361 Seg Neutrophils % 41.4 L Sodium 135.1 L Potassium 4.3 Chloride 102 Carbon Dioxide 25 Anion Gap 8 BUN 17 Creatinine 0.66 Est GFR ( Amer) > 60 Glucose 116 H Calcium 9.8 C-Reactive Protein < 5.0 Assessment & Plan - Diagnosis (1) Cellulitis of left middle finger Is this a current diagnosis for this admission?: Yes Plan: She should continue present antibiotic coverage, this will cover all potential pathogens (2) Chronic obstructive pulmonary disease Qualifiers: COPD type: unspecified COPD Qualified Code(s): J44.9 - Chronic obstructive pulmonary disease, unspecified Is this a current diagnosis for this admission?: Yes Plan: Stable, no concern at this time (3) Hypothyroidism (acquired) Is this a current diagnosis for this admission?: Yes Plan: Continue replacement therapy with Synthroid, follow lab
[2019-10-27] MEDS ORDERED: ALPRAZOLAM 0.25 MG TABLET PO PRN (12:51)
[2019-10-27] MEDS ORDERED: (PENDING PHARMACY ID) (Zolpidem Tartrate [Ambien] 10 MG) PO PRN (12:51)
[2019-10-27] MEDS ORDERED: AMPHETAMINE PO SCH (13:00)
[2019-10-27] MEDS ORDERED: (PENDING PHARMACY ID) (Levothyroxine Sodium [Synthroid] 125 MCG) PO SCH (13:00)
[2019-10-27] MEDS ORDERED: DEXTROAMPHETAMINE PO SCH (13:00)
[2019-10-27] MEDS ORDERED: (PENDING PHARMACY ID) (Buspirone Hcl [Buspirone Hcl] 30 MG) PO SCH (13:00)
[2019-10-27] MEDS ORDERED: (PENDING PHARMACY ID) (Tiotropium Bromide [Spiriva Handihaler 5 Cap/Kit (18 Mcg/Cap)] 1 IN IH SCH (13:00)
[2019-10-27] MEDS: MORPHINE SULFATE 10 MG/ML INJ IV PRN ×3 (13:11→21:15)
[2019-10-27] MEDS ORDERED: GABAPENTIN 300 MG CAPSULE PO PRN (13:29)
[2019-10-27 13:33] LABS: FREE T4 (FREE THYROXINE) 1.57 ng/dL (0.78-2.19)
[2019-10-27 13:47] LABS: THYROID STIMULATING HORMONE 0.64 uIU/mL (0.47-4.68)
[2019-10-27] MEDS: RINGERS SOLUTION,LACTATED 1,000 ML IV PRN ×2 (14:07→23:25)
[2019-10-27] MEDS: LEVOTHYROXINE SODIUM 0.025 MG TABLET PO SCH (14:10)
[2019-10-27] MEDS ORDERED: LEVOTHYROXINE SODIUM 0.1 MG TABLET PO SCH (15:00)
[2019-10-27] MEDS: LEVOTHYROXINE SODIUM 0.1 MG TABLET PO SCH (15:43)
[2019-10-27] MEDS: OXYCODONE-ACETAMINOPHEN 5-325 MG TABLET PO PRN ×2 (17:51→23:23)
[2019-10-27] MEDS: AMITRIPTYLINE HCL 25 MG TABLET PO SCH (21:15)
[2019-10-27] MEDS: BUSPIRONE HCL 10 MG TABLET PO SCH (21:15)
[2019-10-27] MEDS: ZOLPIDEM TARTRATE 5 MG TABLET PO PRN (23:22)
[2019-10-28] MEDS: LEVOTHYROXINE SODIUM 0.025 MG TABLET PO SCH (06:26)
[2019-10-28] MEDS: LEVOTHYROXINE SODIUM 0.1 MG TABLET PO SCH (06:26)
[2019-10-28] MEDS: PANTOPRAZOLE SODIUM 40 MG TABLET.DR PO SCH (06:26)
[2019-10-28] MEDS: BUSPIRONE HCL 10 MG TABLET PO SCH ×2 (09:52→22:08)
[2019-10-28] MEDS: OXYCODONE-ACETAMINOPHEN 5-325 MG TABLET PO PRN ×2 (09:53→22:09)
[2019-10-28] MEDS: CEFTRIAXONE 1 GM/D5W RTU 1 GM/50 ML RTUPB IV SCH (09:53)
[2019-10-28] MEDS: VANCOMYCIN HCL 1,000 MG in DEXTROSE 5%-WATER 250 ML IV SCH (10:44)
[2019-10-28] MEDS: FLUTICASONE/VILANTEROL 200-25 MCG/DOSE IH SCH (15:46)
[2019-10-28] MEDS: UMECLIDINIUM BROMIDE 62.5 MCG/DOSE IH SCH (15:46)
--- NOTE | 2019-10-28 15:47 | PDOC PROGRESS REPORT ---
Subjective Progress Note for:: 10/28/19 Subjective:: Patient seen by the bedside, the culture from the wound is growing cocci in clusters suggesting Staphylococcus, she is otherwise doing well, continue present line of management Reason For Visit: MIDDLE FINGER INFECTION Physical Exam Vital Signs: Temp Pulse Resp BP Pulse Ox 98.2 F 84 16 121/66 100 10/28/19 11:09 10/28/19 11:09 10/28/19 11:09 10/28/19 11:09 10/28/19 11:09 Intake & Output 10/27/19 10/28/19 10/29/19 06:59 06:59 06:59 Intake Total 450 3358 420 Balance 450 3358 420 Weight 48.3 kg 55.1 kg General appearance: PRESENT: no acute distress Eye exam: PRESENT: PERRLA Respiratory exam: PRESENT: clear to auscultation walter Cardiovascular exam: PRESENT: +S1, +S2 GI/Abdominal exam: PRESENT: soft Results Laboratory Results: 10/26/19 20:11 10/26/19 20:11 Assessment & Plan - Diagnosis (1) Cellulitis of left middle finger Is this a current diagnosis for this admission?: Yes Plan: The initial culture from the wound demonstrated cocci in clusters continue present treatment (2) Chronic obstructive pulmonary disease Qualifiers: COPD type: unspecified COPD Qualified Code(s): J44.9 - Chronic obstructive pulmonary disease, unspecified Is this a current diagnosis for this admission?: Yes (3) Hypothyroidism (acquired) Is this a current diagnosis for this admission?: Yes Plan: Continue present treatment - Time Time Spent with patient: 35 or more minutes Level of Care: MEDICAL
[2019-10-28] MEDS: MORPHINE SULFATE 10 MG/ML INJ IV PRN ×2 (15:51→20:16)
[2019-10-28] MEDS: RINGERS SOLUTION,LACTATED 1,000 ML IV PRN (15:54)
--- NOTE | 2019-10-28 17:07 | PDOC PROGRESS REPORT ---
Subjective Progress Note for:: 10/28/19 Subjective:: Patient lying in bed comfortably. States she does have pain with attempted motion. Denies fever chills or sweats. Reason For Visit: MIDDLE FINGER INFECTION Physical Exam Vital Signs: Temp Pulse Resp BP Pulse Ox 98.3 F 73 16 124/68 98 10/28/19 16:10 10/28/19 16:10 10/28/19 16:10 10/28/19 16:10 10/28/19 16:10 Intake & Output 10/27/19 10/28/19 10/29/19 06:59 06:59 06:59 Intake Total 450 3358 1409 Balance 450 3358 1409 Weight 48.3 kg 55.1 kg Musculoskeletal exam: PRESENT: other - Left middle finger: Dressing removed today. Swelling along the DIP joint dorsally improved continues to have redness and swelling along the distal tip. No tenderness on the flexor sheath. PIP joint range of motion 0 degrees - 45 degrees Results Laboratory Results: 10/26/19 20:11 10/26/19 20:11 Assessment & Plan - Diagnosis (1) Cellulitis of left middle finger Is this a current diagnosis for this admission?: Yes Plan: The initial culture from the wound demonstrated cocci in clusters at this point will continue vancomycin and Rocephin until cultures finalized. Once cultures are finalized patient will be discharged home on IV antibiotics. We will continue to monitor wound anticipate discharge within the next 24-48 hours pending culture results. - Time Time Spent with patient: Less than 15 minutes
[2019-10-28] MEDS: AMITRIPTYLINE HCL 25 MG TABLET PO SCH (22:08)
[2019-10-28] MEDS: ZOLPIDEM TARTRATE 5 MG TABLET PO PRN (22:08)
[2019-10-29] MEDS: LEVOTHYROXINE SODIUM 0.025 MG TABLET PO SCH (06:02)
[2019-10-29] MEDS: LEVOTHYROXINE SODIUM 0.1 MG TABLET PO SCH (06:02)
[2019-10-29] MEDS: MORPHINE SULFATE 10 MG/ML INJ IV PRN ×3 (06:08→18:46)
[2019-10-29] MEDS: RINGERS SOLUTION,LACTATED 1,000 ML IV PRN ×2 (06:13→22:08)
[2019-10-29] MEDS: PANTOPRAZOLE SODIUM 40 MG TABLET.DR PO SCH (06:15)
[2019-10-29] MEDS: BUSPIRONE HCL 10 MG TABLET PO SCH ×2 (09:40→22:05)
[2019-10-29] MEDS: CEFTRIAXONE 1 GM/D5W RTU 1 GM/50 ML RTUPB IV SCH (09:41)
[2019-10-29] MEDS: FLUTICASONE/VILANTEROL 200-25 MCG/DOSE IH SCH (09:41)
[2019-10-29] MEDS: UMECLIDINIUM BROMIDE 62.5 MCG/DOSE IH SCH (09:41)
[2019-10-29] MEDS: VANCOMYCIN HCL 1,000 MG in DEXTROSE 5%-WATER 250 ML IV SCH (09:41)
--- NOTE | 2019-10-29 12:40 | PDOC DISCHARGE SUMMARY ---
Impression - Admit/DC Date/PCP Admission Date/Primary Care Provider: 10/26/19 19:06 TIFFANIE SANTIAGO MD Discharge Date: 10/29/19 - Discharge Diagnosis (1) Cellulitis of left middle finger Is this a current diagnosis for this admission?: Yes - Additional Information Referrals: TIFFANIE SANTIAGO MD [Primary Care Provider] - Home Medications: Levothyroxine Sodium [Synthroid] 250 mcg PO Q6AM 10/12/12 Buspirone HCl 30 mg PO Q12 10/28/17 Dexlansoprazole [Dexilant 60 mg Capsule] 60 mg PO Q6AM 10/28/17 Dextroamphetamine/Amphetamine [Adderall XR 20 mg Capsule] 2 cap PO QAM 10/28/17 Gabapentin 600 mg PO TIDP PRN 10/28/17 Zolpidem Tartrate [Ambien] 10 mg PO HSP PRN 10/28/17 Alprazolam 0.25 mg PO BIDP PRN 10/26/19 Amitriptyline HCl [Elavil 25 mg Tablet] 12.5 mg PO HSP PRN MDD 75 MG 10/26/19 Budesonide/Formoterol Fumarate [Symbicort HFA 160-4.5 mcg Inhaler 6 gm] 2 puff IH Q12 10/26/19 Tiotropium [place] [Spiriva Handihaler 5 Cap/Kit (18 Mcg/Cap)] 1 inh IH DAILY 10/26/19 History of Present Illiness History of Present Illness: SHAR SANCHEZ is a 59 year old female who sustained a laceration to her left middle finger approximately 2 months ago and subsequently underwent extensor tendon repair. Unfortunately patient developed redness and drainage from the digit and antibiotics were given however she continued to have redness and swelling. Patient was seen in the office on 10/26/2019 with persistent pain radiographs concerning for possible infection. At that point decision was made to proceed with operative intervention. Patient denies fever chills or sweats. Current pain 07/06. Hospital Course Hospital Course: Patient was admitted to the hospital on 10/25/2019 with cellulitis of the left middle finger. Then underwent irrigation and debridement of the left middle finger on 10/26/2019 due to concerns of possible abscess/osteomyelitis. Cultures were obtained superficial soft tissue cultures were consistent with methicillin sensitive staph aureus deep cultures including bone failed to demonstrate growth. Patient continued to have pain throughout her hospital course although the redness swelling and pain did slowly improve. No evidence of constitutional symptoms throughout her hospital course. On 10/29/2019 superficial cultures were finalized and decision was made to proceed with IV antibiotics for 6 weeks given radiographic concerns of osteomyelitis despite negative bone cultures due risk of false negative given the fact patient was taking p.o. antibiotics. On 10/29/2019 patient was orthopedically and medically stable for discharge to home. Risk and benefits of PICC line, IV antibiotics were explained to the patient joint decision was made to proceed with above plan. Physical Exam Vital Signs: Temp Pulse Resp BP Pulse Ox 98.3 F 90 18 158/89 H 99 10/29/19 07:46 10/29/19 07:46 10/29/19 07:46 10/29/19 07:46 10/29/19 07:46 Intake & Output 10/28/19 10/29/19 10/30/19 06:59 06:59 06:59 Intake Total 3358 4428 286 Balance 3358 4428 286 Weight 55.1 kg 47.8 kg General appearance: PRESENT: no acute distress, well-developed, well-nourished Head exam: PRESENT: atraumatic, normocephalic Eye exam: PRESENT: conjunctiva pink, EOMI, PERRLA. ABSENT: scleral icterus Ear exam: PRESENT: normal external ear exam Mouth exam: PRESENT: moist, tongue midline Neck exam: ABSENT: carotid bruit, JVD, lymphadenopathy, thyromegaly Respiratory exam: PRESENT: clear to auscultation walter. ABSENT: rales, rhonchi, wheezes Cardiovascular exam: PRESENT: RRR. ABSENT: diastolic murmur, rubs, systolic murmur Pulses: PRESENT: normal dorsalis pedis pul Vascular exam: PRESENT: normal capillary refill GI/Abdominal exam: PRESENT: normal bowel sounds, soft. ABSENT: distended, guarding, mass, organolmegaly, rebound, tenderness Rectal exam: PRESENT: deferred Extremities exam: PRESENT: full ROM. ABSENT: calf tenderness, clubbing, pedal edema Musculoskeletal exam: PRESENT: other - Left middle finger: Residual erythema noted along the distal aspect and pulp. No palpable fluctuance or drainage. Pain with range of motion. Mild radial deviation. No tenderness on the flexor sheath. PIP joint range of motion 0 degrees - 65 degrees Neurological exam: PRESENT: alert, awake, oriented to person, oriented to place, oriented to time, oriented to situation, CN II-XII grossly intact. ABSENT: motor sensory deficit Psychiatric exam: PRESENT: anxious, depressed, normal mood. ABSENT: homicidal ideation, suicidal ideation Skin exam: PRESENT: dry, intact, warm. ABSENT: cyanosis, rash Results Laboratory Results: WBC 6.2 10^3/uL (4.0-10.5) 10/26/19 20:11 RBC 4.37 10^6/uL (3.72-5.28) 10/26/19 20:11 Hgb 12.5 g/dL (12.0-15.5) 10/26/19 20:11 Hct 36.1 % (36.0-47.0) 10/26/19 20:11 MCV 83 fl (80-97) 10/26/19 20:11 MCH 28.6 pg (27.0-33.4) 10/26/19 20:11 MCHC 34.7 g/dL (32.0-36.0) 10/26/19 20:11 RDW 15.0 % (11.5-14.0) H 10/26/19 20:11 Plt Count 361 10^3/uL (150-450) 10/26/19 20:11 Lymph % (Auto) 43.8 % (13-45) 10/26/19 20:11 [place] % (Auto) 5.4 % (3-13) 10/26/19 20:11 Eos % (Auto) 8.2 % (0-6) H 10/26/19 20:11 Baso % (Auto) 1.2 % (0-2) 10/26/19 20:11 Absolute Neuts (auto) 2.6 10^3/uL (1.7-8.2) 10/26/19 20:11 Absolute Lymphs (auto) 2.7 10^3/uL (0.5-4.7) 10/26/19 20:11 Absolute Monos (auto) 0.3 10^3/uL (0.1-1.4) 10/26/19 20:11 Absolute Eos (auto) 0.5 10^3/uL (0.0-0.6) 10/26/19 20:11 Absolute Basos (auto) 0.1 10^3/uL (0.0-0.2) 10/26/19 20:11 Seg Neutrophils % 41.4 % (42-78) L 10/26/19 20:11 ESR 10 mm/hr (0-30) 10/26/19 20:11 Sodium 135.1 mmol/L (137-145) L 10/26/19 20:11 Potassium 4.3 mmol/L (3.6-5.0) 10/26/19 20:11 Chloride 102 mmol/L (98-107) 10/26/19 20:11 Carbon Dioxide 25 mmol/L (22-30) 10/26/19 20:11 Anion Gap 8 (5-19) 10/26/19 20:11 BUN 17 mg/dL (7-20) 10/26/19 20:11 Creatinine 0.66 mg/dL (0.52-1.25) 10/26/19 20:11 Est GFR ( Amer) > 60 (>60) 10/26/19 20:11 Est GFR (MDRD) Non-Af > 60 (>60) 10/26/19 20:11 Glucose 116 mg/dL (75-110) H 10/26/19 20:11 Calcium 9.8 mg/dL (8.4-10.2) 10/26/19 20:11 C-Reactive Protein < 5.0 mg/L (<10.0) 10/26/19 20:11 TSH 0.64 uIU/mL (0.47-4.68) 10/26/19 20: Free T4 1.57 ng/dL (0.78-2.19) 10/26/19 20:11 Plan Plan of Treatment: Patient will be set up for PICC line, IV Rocephin 1 g daily for the next 6 weeks. We will obtain sequential labs as per pharmacy protocol. Patient will continue daily dressing changes. Plan will be for patient to follow-up in 2 weeks for wound check or sooner if issues arise. Patient is to call with any questions or concerns including increasing redness, swelling, pain or temperat ure greater than 101.5. Patient was read above instructions and was orthopedically stable for discharge to home. Stroke Is this a Stroke Patient?: No Acute Heart Failure - Is this a Heart Failure Patient?: No
[2019-10-29] MEDS ORDERED: NORMAL SALINE 10 ML SDV (AFTER EACH USE) IV PRN (14:30)
[2019-10-29] MEDS: OXYCODONE-ACETAMINOPHEN 5-325 MG TABLET PO PRN ×2 (16:09→22:06)
--- NOTE | 2019-10-29 16:25 | RADIOLOGY REPORT (SQ) ---
EXAM DESCRIPTION: PICC INSERTION IMAGES COMPLETED DATE/TIME: 10/29/2019 1:46 pm REASON FOR STUDY: IV antibiotics COMPARISON: None. FLUOROSCOPY TIME: 0.32 minutes. 3 images submitted to PACS. TECHNIQUE: Integrated into the Procedure. LIMITATIONS: None. PROCEDURE: The procedure, risks, benefits, and alternatives were discussed with the patient in the p reprocedural area, and all questions were answered. Informed consent was obtained verbally and in wri ting. The patient was then brought to the procedural suite, positioned supine on the fluoroscopy table, and a time-out was performed. At first the left upper extremity was evaluated with ultrasound and the basilic vein was found to be patent and compressible - an ultrasound image of the vessel was obtained and submitted to PACS to [facility] the use of ultrasound guidance. The left upper extremity was then prepped and draped with 2% c hlorhexidine utilizing standard sterile technique. After the skin over the basilic vein was anestheti zed with 1% lidocaine, direct ultrasound guidance was used to access the vessel with a 21-gauge needl e. A 0.018 inch guidewire was then inserted through the needle and advanced under fluoroscopic guidan ce into the SVC. After that, the needle was exchanged over the guidewire for a peel-away sheath. A 5 Vincentian dual -lumen PICC was then cut to the appropriate length of 43 cm, inserted through the sheath and advanced under fluoroscopic guidance into the SVC. After that, the peel-away sheath was removed a nd a fluoroscopic image of the chest was obtained to confirm proper position of the catheter tip with in SVC. The lumens of the PICC were then aspirated, flushed with sterile saline and heparinized. At the end of the procedure the PICC was secured in place and a sterile dressing applied over it. The patient tolerated the procedure well without immediate complication. At the end of the procedure the patient's condition was unchanged from the preprocedural baseline. No IV conscious sedation was administered. Physiologic monitoring was provided before, during, and after the procedure. Documentation of [id number] time performing proceduralist spent monitoring the patient: 30 minutes. IMPRESSION: Successful placement of a 5 Vincentian PICC in the left upper extremity utilizing fluoroscop ic and sonographic guidance. COMMENT: Patient medication list reviewed: Yes- Quality ID# 130:Eligible professional attests to [facility] in the medical record they obtained, updated, or reviewed the patient's current medications. . Quality ID 145: Final reports for procedures using fluoroscopy that document radiation exposure alonso eliud, or exposure time and number of fluorographic images (if radiation exposure indices are not avail able) Quality ID #76: The patient was prepped and draped using maximum sterile barrier technique including cap, mask, sterile gown, sterile gloves, a large sterile sheet, hand hygiene, and 2% Chlorhexidine fo r cutaneous antisepsis. When ultrasound is used, sterile ultrasound techniques are followed requiring sterile gel and sterile probes. TECHNICAL DOCUMENTATION: JOB ID: [id number] 2010 [employer]- All Rights Reserved rev-11/11 Reading location - IP/workstation name: [email or web address]
--- NOTE | 2019-10-29 17:50 | Progress Note ---
Provider Note Provider Note: [facility] ID Telephone Advice Consultation Chart reviewed. Patient is a 59-year-old woman who was admitted due to left m iddle finger infection. Two months ago she sustained an injury that required extensor tendon repair. She started developing redness, tenderness and drainage from the wound, Three weeks ago she received 1 week of Bactrim followed by 2 more weeks. Her symptoms didn't resolve. She was seen in clinic by ortho and a decision was made to take her to the OR for debridement. X ray at the office consistent with infection per notes. Superficial wound culture positive for MSSA. Deep tissue / bone culture negative to date. She is s/p I&D, Fiberwire sutures removal. ID consulted for antibiotic recommendations. PMH: GERD Right lower lobe lung cancer PSH: Right lower lobe resection Allergies: No Known Allergies Allergy (Verified 08/23/19 06:22) Medications: Levothyroxine Sodium [Synthroid] 250 mcg PO Q6AM 10/12/12 Buspirone HCl 30 mg PO Q12 10/28/17 Dexlansoprazole [Dexilant 60 mg Capsule] 60 mg PO Q6AM 10/28/17 Dextroamphetamine/Amphetamine [Adderall XR 20 mg Capsule] 2 cap PO QAM 10/28/17 Gabapentin 600 mg PO TIDP PRN 10/28/17 Zolpidem Tartrate [Ambien] 10 mg PO HSP PRN 10/28/17 Alprazolam 0.25 mg PO BIDP PRN 10/26/19 Amitriptyline HCl [Elavil 25 mg Tablet] 12.5 mg PO HSP PRN MDD 75 MG 10/26/19 Budesonide/Formoterol Fumarate [Symbicort HFA 160-4.5 mcg Inhaler 6 gm] 2 puff IH Q12 10/26/19 Tiotropium [place] [Spiriva Handihaler 5 Cap/Kit (18 Mcg/Cap)] 1 inh IH DAILY 10/26/19 Vital Signs: Temp Pulse Resp BP Pulse Ox 98.0 F 67 18 151/73 H 100 10/29/19 16:00 10/29/19 16:00 10/29/19 16:00 10/29/19 16:00 10/29/19 16:00 Intake & Output 10/28/19 10/29/19 10/30/19 06:59 06:59 06:59 Intake Total 3358 4428 536 Balance 3358 4428 536 Weight 55.1 kg 47.8 kg Weight/Height Weight 47.8 kg Height 5 ft 8 in Laboratories: 10/26/19 20:11 10/26/19 20:11 MCV 83 fl (80-97) 10/26/19 20:11 MCH 28.6 pg (27.0-33.4) 10/26/19 20:11 MCHC 34.7 g/dL (32.0-36.0) 10/26/19 20:11 RDW 15.0 % (11.5-14.0) H 10/26/19 20:11 Seg Neutrophils % 41.4 % (42-78) L 10/26/19 20:11 Chloride 102 mmol/L (98-107) 10/26/19 20:11 Carbon Dioxide 25 mmol/L (22-30) 10/26/19 20:11 Anion Gap 8 (5-19) 10/26/19 20:11 Est GFR ( Amer) > 60 (>60) 10/26/19 20:11 Glucose 116 mg/dL (75-110) H 10/26/19 20:11 Calcium 9.8 mg/dL (8.4-10.2) 10/26/19 20:11 C-Reactive Protein < 5.0 mg/L (<10.0) 10/26/19 20:11 TSH 0.64 uIU/mL (0.47-4.68) 10/26/19 20:11 Free T4 1.57 ng/dL (0.78-2.19) 10/26/19 20:11 Microbiology: Blood culture 5/1 NGTD Wound culture 5/1 MSSA Bone/tissue culture 5/2 NGTD Radiology: PICC Line Insertion 10/29/19 00:00 IMPRESSION: Successful placement of a 5 [place] Zealander PICC in the left upper extremity utilizing fluoroscopic and sonographic guidance. Assessment and Recommendations: Patient evaluated due to left middle finger infection s/p 3 weeks of Bactrim and ultimately I&D with Fiberwire sutures removal. No gross purulence noted, however she was already on therapy. Wound culture was positive for MSSA but bone culture was negative. Considering that this was a deep infection, concerning for osteomyelitis, a decision was made to treat for 6 weeks. Cefazolin 2g IV every 8 hr would be the first line recommendation. Ceftriaxone 2g iv daily is an alternative although broader. NO need for vancomycin. While on antibiotics, monitor CBC, CMP, ESR, CRP. Remove PICC line at completion of therapy. Please call if questions. Kiah Caceres MD [facility] ID [phone]
[2019-10-29] MEDS: AMITRIPTYLINE HCL 25 MG TABLET PO SCH (22:02)
[2019-10-29] MEDS: ZOLPIDEM TARTRATE 5 MG TABLET PO PRN (22:05)
[2019-10-29] MEDS: NORMAL SALINE 10 ML SDV (SCHEDULED) IV SCH (22:07)
[2019-10-30] MEDS: LEVOTHYROXINE SODIUM 0.1 MG TABLET PO SCH (05:08)
[2019-10-30] MEDS: LEVOTHYROXINE SODIUM 0.025 MG TABLET PO SCH (05:08)
[2019-10-30] MEDS: PANTOPRAZOLE SODIUM 40 MG TABLET.DR PO SCH (05:34)
[2019-10-30] MEDS: BUSPIRONE HCL 10 MG TABLET PO SCH (09:15)
[2019-10-30] MEDS: CEFTRIAXONE 1 GM/D5W RTU 1 GM/50 ML RTUPB IV SCH (09:15)
[2019-10-30] MEDS: MORPHINE SULFATE 10 MG/ML INJ IV PRN (09:15)
[2019-10-30] MEDS: FLUTICASONE/VILANTEROL 200-25 MCG/DOSE IH SCH (09:16)
[2019-10-30] MEDS: NORMAL SALINE 10 ML SDV (SCHEDULED) IV SCH (09:16)
[2019-10-30] MEDS: UMECLIDINIUM BROMIDE 62.5 MCG/DOSE IH SCH (09:17)
--- NOTE | 2019-10-30 10:48 | PDOC PROGRESS REPORT ---
Subjective Progress Note for:: 10/30/19 Subjective:: Patient lying in bed comfortably. States she does have pain with attempted motion. Denies fever chills or sweats. Denies changes. Reason For Visit: MIDDLE FINGER INFECTION Physical Exam Vital Signs: Temp Pulse Resp BP Pulse Ox 98.0 F 69 16 141/73 H 99 10/30/19 07:23 10/30/19 07:23 10/30/19 07:23 10/30/19 07:23 10/30/19 07:23 Intake & Output 10/29/19 10/30/19 10/31/19 06:59 06:59 06:59 Intake Total 4428 1491 50 Balance 4428 1491 50 Weight 47.8 kg 47.8 kg Musculoskeletal exam: PRESENT: other - Left middle finger: Residual redness and swelling on the distal aspect. No active drainage. Dressing change today. PIP joint range of motion 0 degrees - 70 degrees. Results Laboratory Results: 10/26/19 20:11 10/30/19 09:48 10/30/19 09:48 Creatinine 0.62 Est GFR ( Amer) > 60 10/27/19 08:57 Finger - Left Index Finger Gram Stain - Final 10/27/19 08:58 Finger - Left Index Finger Gram Stain - Final Impressions: PICC Line Insertion 10/29/19 00:00 IMPRESSION: Successful placement of a 5 Tanzanian PICC in the left upper extremity utilizing fluoroscopic and sonographic guidance. Assessment & Plan - Diagnosis (1) Cellulitis of left middle finger Is this a current diagnosis for this admission?: Yes Plan: Patient status post I&D most recent cultures positive for methicillin sensitive staph aureus including bone cultures which is a recent development. At this point plan will be for discharge home with 2 g of IV Rocephin as per infectious disease recommendation. Appreciate infectious disease recommendation. - Time Time Spent with patient: Less than 15 minutes
[2019-10-30 10:53] LABS: VANCOMYCIN,TROUGH < 5.0 ug/mL (5.0-20.0)
[2019-10-30 12:42] VITALS: BP 151/73
[2019-10-31] MEDS ORDERED: CEFTRIAXONE 2 GM/D5W RTU 2 GM/50 ML RTUPB IV SCH (10:00)
== END 2019-10-30 13:24 | disposition home health service (06) | DRG 581 ==
LOC: 4S 19:06 → OBSVTOIN 19:06 → INTOOBSV 19:06 → 4N 19:20 → UNDODISIN 10-30 13:24
PROVIDERS: ADMIT Orthopaedic Surgery; ATTEND Orthopaedic Surgery
PROC: 0PBV0ZX Excision of Left Finger Phalanx, Open Approach, Diagnostic (ICD-10-PCS; principal; 2019-10-27)
PROC: 0H9GXZX Drainage of Left Hand Skin, External Approach, Diagnostic (ICD-10-PCS; 2019-10-27)
PROC: 02HV33Z Insertion of Infusion Device into Superior Vena Cava, Percutaneous Approach (ICD-10-PCS; 2019-10-29)
DX: L03.012 Cellulitis of left finger (principal); B95.61 Methicillin susceptible Staphylococcus aureus infection as the cause of diseases classified elsewhere; E06.3 Autoimmune thyroiditis; J44.9 Chronic obstructive pulmonary disease, unspecified; F17.200 Nicotine dependence, unspecified, uncomplicated; Z79.890 Hormone replacement therapy; Z90.2 Acquired absence of lung [part of]; Z85.118 Personal history of other malignant neoplasm of bronchus and lung; Z18.10 Retained metal fragments, unspecified; Z90.710 Acquired absence of both cervix and uterus
CPT/HCPCS: 1810; 36415; 36573; 80048; 80202; 82565; 84439; 84443; 85025; 85652; 86140; 87040; 87070; 87075; 87077; 87150; 87186; 87205; 99140; J0690; J0696; J1642; J2270; J3370; J3490; J7060; J7120

== ENCOUNTER 2020-01-08 17:30 | Observation (INO) | payer MEDICARE, MEDICAID ==
[2020-01-08 18:50] LABS: APPEARANCE,URINE SLIGHTLY-CLOUDY; BILIRUBIN,URINE NEGATIVE (NEGATIVE); COLOR,URINE YELLOW; GLUCOSE, URINE NEGATIVE (NEGATIVE); KETONES,URINE NEGATIVE (NEGATIVE); LEUKOCYTE ESTERASE,URINE TRACE (NEGATIVE); NITRITE,URINE NEGATIVE (NEGATIVE); PROTEIN,URINE 30 mg/dL (NEGATIVE); URINE SPECIFIC GRAVITY 1.023; UROBILINOGEN,URINE NEGATIVE mg/dL (<2.0)
[2020-01-08] MEDS: DEXTROSE 5%-NORMAL SALINE 1,000 ML IV PRN (18:50)
[2020-01-08 19:02] LABS: HEMATOCRIT 36.1 % (36.0-47.0); HEMOGLOBIN 12.2 g/dL (12.0-15.5); MEAN CORPUSCULAR HGB CONC 33.7 g/dL (32.0-36.0); MEAN CORPUSCULAR VOLUME 83 fl (80-97); PLATELET COUNT 365 10^3/uL (150-450); RED BLOOD COUNT 4.33 10^6/uL (3.72-5.28); RED CELL DISTRIBUTION WIDTH 15.1 % (11.5-14.0); WHITE BLOOD COUNT 9.5 10^3/uL (4.0-10.5)
[2020-01-08 19:16] LABS: ALBUMIN 4.4 g/dL (3.5-5.0); ALKALINE PHOSPHATASE 89 U/L (38-126); ANION GAP 7 (5-19); ASPARTATE AMINO TRANSFERASE 23 U/L (14-36); BILIRUBIN,TOTAL 0.4 mg/dL (0.2-1.3); BLOOD UREA NITROGEN 17 mg/dL (7-20); CALCIUM 10.1 mg/dL (8.4-10.2); CARBON DIOXIDE 27 mmol/L (22-30); CHLORIDE 103 mmol/L (98-107); GLUCOSE 72 mg/dL (75-110); POTASSIUM 4.4 mmol/L (3.6-5.0); TOTAL PROTEIN 7.2 g/dL (6.3-8.2)
[2020-01-08 19:34] LABS: FREE T4 (FREE THYROXINE) 1.11 ng/dL (0.78-2.19)
[2020-01-08 19:48] LABS: THYROID STIMULATING HORMONE 3.42 uIU/mL (0.47-4.68)
[2020-01-09] MEDS ORDERED: ALBUTEROL SULFATE HFA (90 MCG/PUFF) 200 PUFF/8.5 GM MDI IH PRN (00:40)
[2020-01-09] MEDS ORDERED: AMITRIPTYLINE HCL 50 MG TABLET PO PRN (00:41)
[2020-01-09] MEDS ORDERED: GABAPENTIN 300 MG CAPSULE PO PRN (00:43)
[2020-01-09] MEDS ORDERED: ZOLPIDEM TARTRATE 5 MG TABLET PO PRN (00:50)
[2020-01-09] MEDS ORDERED: LEVOTHYROXINE SODIUM 0.025 MG TABLET PO SCH (06:00)
[2020-01-09] MEDS: GABAPENTIN 300 MG CAPSULE PO SCH ×3 (06:07→21:20)
[2020-01-09] MEDS: PANTOPRAZOLE SODIUM 40 MG TABLET.DR PO SCH ×2 (06:08→06:11)
[2020-01-09] MEDS: DEXTROSE 5%-NORMAL SALINE 1,000 ML IV PRN (06:09)
[2020-01-09] MEDS: IBUPROFEN 800 MG TABLET PO PRN (06:19)
[2020-01-09] MEDS: BUSPIRONE HCL 10 MG TABLET PO SCH ×2 (09:36→21:20)
[2020-01-09] MEDS: AMOXICILLIN TR/POT CLAVULANATE 875-125 MG TAB PO SCH ×2 (09:36→21:21)
[2020-01-09] MEDS: UMECLIDINIUM BROMIDE 62.5 MCG/DOSE IH SCH (09:37)
[2020-01-09] MEDS: HYDROXYZINE PAMOATE 25 MG CAPSULE PO SCH (09:37)
--- NOTE | 2020-01-09 12:48 | PDOC H&P ---
History of Present Illness Admission Date/PCP: 01/08/20 17:30 TIFFANIE SANTIAGO MD History of Present Illness: SHAR SANCHEZ is a 59 year old female, she has a history of COPD, malignant neoplasm of the lung status post left lower lobe lobectomy, history of esophageal stricture with multiple dilation procedure of the esophagus, patient has been progressively losing weight, she is not able to keep food down, the body mass index is 16, she has had multiple upper endoscopy done, she had a barium swallow done on 09/10/2019 that showed tortuosity of the proximal esophagus to the right at the thoracic inlet adjacent to a radiopaque density in the upper mediastinum also found was chronic dilatation of the distal esophagus. She was admitted to the hospital because of severe dehydration inadequate intake. I spoke with Dr. 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 Psychiatric Medical History: Reports: Attention Deficit Hyperactivity Disorder Denies: Depression Hematology: Past Surgical History Past Surgical History: Reports: Appendectomy, Hysterectomy, Orthopedic Surgery - extensor tendon repair to the left middle finger Social History Smoking Status: Current Some Day Smoker Cigarettes Packs Per Day: 1 Electronic Cigarette use?: No Number of Years Smokin Last Time Smoked: 01/08/20 Frequency of Alcohol Use: None Hx Recreational Drug Use: No Drugs: None Hx Prescription Drug Abuse: No Family History Family History: Reviewed & Not Pertinent Parental Family History Reviewed: Yes Children Family History Reviewed: Yes Sibling(s) Family History Reviewed.: Yes Medication/Allergy Home Medications: Levothyroxine Sodium [Synthroid] 125 mcg PO Q6AM 10/12/ Buspirone HCl 30 mg PO Q12 10/28/17 Dexlansoprazole [Dexilant 60 mg Capsule] 60 mg PO Q6AM 10/28/17 Dextroamphetamine/Amphetamine [Adderall XR 20 mg Capsule] 40 mg PO QAM 10/28/17 Gabapentin 600 mg PO Q8HP PRN 10/28/17 Zolpidem Tartrate [Ambien] 10 mg PO HSP PRN 10/28/17 Alprazolam 0.25 mg PO BIDP PRN 10/26/19 Amitriptyline HCl [Elavil 25 mg Tablet] 50 mg PO QHS MDD 100MG 10/26/19 Tiotropium [place] [Spiriva Handihaler 5 Cap/Kit (18 Mcg/Cap)] 1 cap IH DAILY 10/26/19 Albuterol Sulfate [Proair HFA Inhalation Aerosol 8.5 gm MDI] 2 puff IH Q6HP PRN 01/08/20 Amoxicillin/Potassium Clav [Augmentin 875-125 Tablet] 1 tab PO Q12 01/08/20 Hydroxyzine Pamoate [Vistaril 25 mg Capsule] 25 mg PO DAILY MDD 75MG 01/08/20 Ibuprofen [Motrin 800 mg Tablet] 80 mg PO Q8HP PRN 01/08/20 Umeclidinium Brm/Vilanterol Tr [Anoro Ellipta 62.5-25 Mcg INH] 1 puff IH DAILY 01/08/20 Allergies/Adverse Reactions: No Known Allergies Allergy (Verified 08/23/19 06:22) Review of Systems Constitutional: PRESENT: weight loss Eyes: ABSENT: visual disturbances Ears: ABSENT: hearing changes Cardiovascular: ABSENT: chest pain, dyspnea on exertion, edema, orthropnea, palpitations Respiratory: ABSENT: cough, hemoptysis Gastrointestinal: PRESENT: dysphagia, vomiting Genitourinary: ABSENT: dysuria, hematuria Musculoskeletal: ABSENT: joint swelling Integumentary: ABSENT: rash, wounds Neurological: ABSENT: abnormal gait, abnormal speech, confusion, dizziness, focal weakness, syncope Psychiatric: ABSENT: anxiety, depression, homidical ideation, suicidal ideation Endocrine: ABSENT: cold intolerance, heat intolerance, menstrual abnormalities, polydipsia, polyuria Hematologic/Lymphatic: ABSENT: easy bleeding, easy bruising, lymphadenopathy Physical Exam Vital Signs: Temp Pulse Resp BP Pulse Ox 98.2 F 86 17 154/72 H 100 01/09/20 08:43 01/09/20 08:43 01/09/20 08:43 01/09/20 08:43 01/09/20 08:43 Intake & Output 01/08/20 01/09/20 01/10/20 06:59 06:59 06:59 Intake Total 1260 Balance 1260 Weight 48.2 kg General appearance: PRESENT: thin Head exam: PRESENT: atraumatic Eye exam: PRESENT: PERRLA Mouth exam: PRESENT: dry mucosa Neck exam: PRESENT: lymphadenopathy Respiratory exam: PRESENT: decreased breath sounds Cardiovascular exam: PRESENT: +S1, +S2 GI/Abdominal exam: PRESENT: soft Musculoskeletal exam: PRESENT: other - Kyphosis Neurological exam: PRESENT: alert Results Laboratory Results: 01/08/20 18:40 01/08/20 18:40 01/08/20 01/08/20 01/08/20 18:20 18:40 18:40 WBC 9.5 RBC 4.33 Hgb 12.2 Hct 36.1 MCV 83 MCH 28.0 MCHC 33.7 RDW 15.1 H Plt Count 365 Sodium Potassium Chloride Carbon Dioxide Anion Gap BUN Creatinine Est GFR ( Amer) Glucose Calcium Total Bilirubin AST Alkaline Phosphatase Total Protein Albumin TSH 3.42 Free T4 1.11 Urine Color YELLOW Urine Appearance SLIGHTLY-CLOUDY Urine pH 6.0 Ur Specific [place] 1.023 Urine Protein 30 H Urine Glucose (UA) NEGATIVE Urine Ketones NEGATIVE Urine Blood MODERATE H Urine Nitrite NEGATIVE Ur Leukocyte Esterase TRACE H Urine WBC (Auto) 4 Urine RBC (Auto) 102 01/08/20 18:40 WBC RBC Hgb Hct MCV MCH MCHC RDW Plt Count Sodium 136.8 L Potassium 4.4 Chloride 103 Carbon Dioxide 27 Anion Gap 7 BUN 17 Creatinine 0.54 Est GFR ( Amer) > 60 Glucose 72 L Calcium 10.1 Total Bilirubin 0.4 AST 23 Alkaline Phosphatase 89 Total Protein 7.2 Albumin 4.4 TSH Free T4 Urine Color Urine Appearance Urine pH Ur Specific [place] Urine Protein Urine Glucose (UA) Urine Ketones Urine Blood Urine Nitrite Ur Leukocyte Esterase Urine WBC (Auto) Urine RBC (Auto) Assessment & Plan - Diagnosis (1) Achalasia of esophagus Is this a current diagnosis for this admission?: Yes Plan: Barium study from August demonstrated dilatation of the distal esophagus (2) Protein-calorie undernutrition Qualifiers: Protein-calorie malnutrition severity: severe Qualified Code(s): E43 - Unspecified severe protein-calorie malnutrition Is this a current diagnosis for this admission?: Yes Plan: Patient with severe protein calorie malnutrition/undernutrition dobbhoff feeding tube to be inserted to initiate tube feed consultation will be requested from dietary for guidance on nutrition (3) Undernutrition Is this a current diagnosis for this admission?: Yes (4) Dehydration Is this a current diagnosis for this admission?: Yes Plan: Hydrate with IV fluid - Time Critical Time spent with patient: 35 or more minutes Medications reviewed and adjusted accordingly: Yes - Inpatient Certification Based on my medical assessment, after consideration of the patient's comorbidities, presenting symptoms, or acuity I expect that the services needed warrant INPATIENT care.: Yes I certify that my determination is in accordance with my understanding of Medicare's requirements for reasonable and necessary INPATIENT services [42 CFR 412.3e].: Yes Medical Necessity: Failure to Improve With Outpatient Therapy, Significant Comorbidiites Make Outpatient Treatment Too Risky, Need For IV Fluids
[2020-01-09] MEDS: ALPRAZOLAM 0.25 MG TABLET PO PRN (14:48)
--- NOTE | 2020-01-09 15:02 | RADIOLOGY REPORT (SQ) ---
EXAM DESCRIPTION: BARIUM SWALLOW ESOPHAGUS IMAGES COMPLETED DATE/TIME: 01/09/2020 2:26 pm REASON FOR STUDY: esophageal disease? Dysphagia, vomiting COMPARISON: Barium swallow 09/10/2019 TECHNIQUE: Under fluoroscopic guidance, patient ingested thin barium. Fluoroscopic spot images and r outine radiographic images acquired and stored on PACS. 12 MM BARIUM TABLET GIVEN: Yes. No significant delay in passage. LIMITATIONS: None. FLUOROSCOPY TIME: 2.6 minutes of fluoroscopy was used. 12 images saved to PACS. FINDINGS: NEUROMUSCULAR COORDINATION OF SWALLOW: Normal. No aspiration. ESOPHAGEAL MOTILITY: Slow primary peristalsis with stasis of barium throughout the esophagus. No eso phageal spasm. ESOPHAGEAL MUCOSA: Again seen, tortuosity of the proximal esophagus to the right at the thoracic inl et. No significant change from previous study. No strictures identified. GASTRO-ESOPHAGEAL JUNCTION: Small hiatal hernia with free-flowing gastroesophageal reflux. 12 mm bar ium tablet passed through the GE junction without delay. . NON-GI TRACT STRUCTURES: Radiopaque foreign body overlying the posterior upper chest just lateral to the thoracic spine, unchanged. OTHER: Severe scoliosis IMPRESSION: 1. ESOPHAGEAL DYSMOTILITY 2. TORTUOSITY TO THE RIGHT, OF THE PROXIMAL ESOPHAGUS AT THE THORACIC INLET, AGAIN SEEN AND IS UNCHA NGED FROM PREVIOUS STUDY. 3. SMALL HIATAL HERNIA WITH GASTROESOPHAGEAL REFLUX. COMMENT: Recommend CT the chest further evaluation of the thoracic inlet Quality ID 145: Final reports for procedures using fluoroscopy that document radiation exposure alonso eliud, or exposure time and number of fluorographic images (if radiation exposure indices are not avail able) TECHNICAL DOCUMENTATION: JOB ID: [id number] 2010 [employer]- All Rights Reserved Reading location - IP/workstation name: [email or web address] [id number]
--- NOTE | 2020-01-09 15:08 | RADIOLOGY REPORT (SQ) ---
EXAM DESCRIPTION: INTRO/GI TUBE W/FLUORO; INTRO LONG GI TUBE (MILLAB) IMAGES COMPLETED DATE/TIME: 01/09/2020 2:27 pm REASON FOR STUDY: malnutrition; MALNUTRITION COMPARISON: None. TECHNIQUE: Live fluoroscopic guidance. RADIATION DOSE: 4.5 minutes of fluoroscopy was used. 1 images saved to PACS. LIMITATIONS: None. FINDINGS: The patient was brought to the fluoroscopy room and placed supine on the fluoroscopy table . A NJ-tube was advanced through the left nostril through the stomach and ending in the 2nd portion o f the duodenum. Approximately 30 mL of non ionic contrast was injected through the catheter to confi rm placement. A fluoroscopic spot film was saved to PACs demonstrating catheter tip within the 2nd po rtion of the duodenum. IMPRESSION: Successful fluoroscopic guided placement of a NJ tube. COMMENT: Quality ID 145: Final reports for procedures using fluoroscopy that document radiation exp osure indices, or exposure time and number of fluorographic images (if radiation exposure indices are not available) TECHNICAL DOCUMENTATION: JOBD ID: [id number] 2010 [employer]- All Rights Reserved Reading location - IP/workstation name: [email or web address] [id number]
--- NOTE | 2020-01-09 15:08 | RADIOLOGY REPORT (SQ) ---
EXAM DESCRIPTION: INTRO/GI TUBE W/FLUORO; INTRO LONG GI TUBE (MILLAB) IMAGES COMPLETED DATE/TIME: 01/09/2020 2:27 pm REASON FOR STUDY: malnutrition; MALNUTRITION COMPARISON: None. TECHNIQUE: Live fluoroscopic guidance. RADIATION DOSE: 4.5 minutes of fluoroscopy was used. 1 images saved to PACS. LIMITATIONS: None. FINDINGS: The patient was brought to the fluoroscopy room and placed supine on the fluoroscopy table . A NJ-tube was advanced through the left nostril through the stomach and ending in the 2nd portion o f the duodenum. Approximately 30 mL of non ionic contrast was injected through the catheter to confi rm placement. A fluoroscopic spot film was saved to PACs demonstrating catheter tip within the 2nd po rtion of the duodenum. IMPRESSION: Successful fluoroscopic guided placement of a NJ tube. COMMENT: Quality ID 145: Final reports for procedures using fluoroscopy that document radiation exp osure indices, or exposure time and number of fluorographic images (if radiation exposure indices are not available) TECHNICAL DOCUMENTATION: JOBD ID: [id number] 2010 [employer]- All Rights Reserved Reading location - IP/workstation name: [email or web address] [id number]
--- NOTE | 2020-01-09 15:40 | PDOC PROGRESS REPORT ---
Subjective Progress Note for:: 01/09/20 Subjective:: Patient seen by the bedside, I had a long discussion with the patient and the daughter about her condition and plan of care a fluoroscopy guided Dobbhoff feeding tube was inserted today, consultation requested from nutrition/dietary for guidance on diet to initiate for feeding purposes Reason For Visit: DEHYDRATION Physical Exam Vital Signs: Temp Pulse Resp BP Pulse Ox 98.4 F 84 19 126/78 H 100 01/09/20 12:33 01/09/20 12:33 01/09/20 12:33 01/09/20 12:33 01/09/20 12:33 Intake & Output 01/08/20 01/09/20 01/10/20 06:59 06:59 06:59 Intake Total 1260 1603 Balance 1260 1603 Weight 48.2 kg General appearance: PRESENT: no acute distress, thin Eye exam: PRESENT: PERRLA Respiratory exam: PRESENT: clear to auscultation walter Cardiovascular exam: PRESENT: +S1, +S2 GI/Abdominal exam: PRESENT: soft Neurological exam: PRESENT: alert Results Laboratory Results: 01/08/20 18:40 01/08/20 18:40 01/08/20 01/08/20 01/08/20 18:20 18:40 18:40 WBC 9.5 RBC 4.33 Hgb 12.2 Hct 36.1 MCV 83 MCH 28.0 MCHC 33.7 RDW 15.1 H Plt Count 365 Sodium Potassium Chloride Carbon Dioxide Anion Gap BUN Creatinine Est GFR ( Amer) Glucose Calcium Total Bilirubin AST Alkaline Phosphatase Total Protein Albumin TSH 3.42 Free T4 1.11 Urine Color YELLOW Urine Appearance SLIGHTLY-CLOUDY Urine pH 6.0 Ur Specific [place] 1.023 Urine Protein 30 H Urine Glucose (UA) NEGATIVE Urine Ketones NEGATIVE Urine Blood MODERATE H Urine Nitrite NEGATIVE Ur Leukocyte Esterase TRACE H Urine WBC (Auto) 4 Urine RBC (Auto) 102 01/08/20 18:40 WBC RBC Hgb Hct MCV MCH MCHC RDW Plt Count Sodium 136.8 L Potassium 4.4 Chloride 103 Carbon Dioxide 27 Anion Gap 7 BUN 17 Creatinine 0.54 Est GFR ( Amer) > 60 Glucose 72 L Calcium 10.1 Total Bilirubin 0.4 AST 23 Alkaline Phosphatase 89 Total Protein 7.2 Albumin 4.4 TSH Free T4 Urine Color Urine Appearance Urine pH Ur Specific [place] Urine Protein Urine Glucose (UA) Urine Ketones Urine Blood Urine Nitrite Ur Leukocyte Esterase Urine WBC (Auto) Urine RBC (Auto) Impressions: Esophagus X-Ray 01/09/20 00:00 IMPRESSION: 1. ESOPHAGEAL DYSMOTILITY 2. TORTUOSITY TO THE RIGHT, OF THE PROXIMAL ESOPHAGUS AT THE THORACIC INLET, AGAIN SEEN AND IS UNCHANGED FROM PREVIOUS STUDY. 3. SMALL HIATAL HERNIA WITH GASTROESOPHAGEAL REFLUX. Gastrostomy Tube Placement 01/09/20 00:00 IMPRESSION: Successful fluoroscopic guided placement of a NJ tube. Guidance Fluoroscopy 01/09/20 00:00 IMPRESSION: Successful fluoroscopic guided placement of a NJ tube. Assessment & Plan - Diagnosis (1) Achalasia of esophagus Is this a current diagnosis for this admission?: Yes Plan: She may need surgical corrective procedure done (2) Protein-calorie undernutrition Qualifiers: Protein-calorie malnutrition severity: severe Qualified Code(s): E43 - Unspecified severe protein-calorie malnutrition Is this a current diagnosis for this admission?: Yes Plan: Fluoroscopy-guided feeding tube inserted (3) Undernutrition Is this a current diagnosis for this admission?: Yes (4) Dehydration Is this a current diagnosis for this admission?: Yes Plan: Continue hydration - Time Time Spent with patient: 35 or more minutes Level of Care: IMCU Medications reviewed and adjusted accordingly: Yes
[2020-01-09] MEDS ORDERED: AMITRIPTYLINE HCL 50 MG TABLET PO SCH (22:00)
[2020-01-10] MEDS: ALPRAZOLAM 0.25 MG TABLET PO PRN ×2 (02:49→10:05)
[2020-01-10] MEDS: IBUPROFEN 800 MG TABLET PO PRN (02:49)
[2020-01-10] MEDS: GABAPENTIN 300 MG CAPSULE PO SCH ×2 (05:38→14:01)
[2020-01-10] MEDS ORDERED: LEVOTHYROXINE SODIUM 0.05 MG TABLET PO SCH (06:00)
[2020-01-10] MEDS ORDERED: DEXILANT 60 MG PO SCH (06:00)
[2020-01-10] MEDS: UMECLIDINIUM BROMIDE 62.5 MCG/DOSE IH SCH (10:02)
[2020-01-10] MEDS: AMOXICILLIN TR/POT CLAVULANATE 875-125 MG TAB PO SCH (10:04)
[2020-01-10] MEDS: HYDROXYZINE PAMOATE 25 MG CAPSULE PO SCH ×2 (10:05→10:10)
[2020-01-10] MEDS: BUSPIRONE HCL 10 MG TABLET PO SCH (10:05)
[2020-01-10 16:14] VITALS: BP 130/73
--- NOTE | 2020-01-10 19:37 | PDOC DISCHARGE SUMMARY ---
Impression - Admit/DC Date/PCP Admission Date/Primary Care Provider: 01/08/20 17:30 TIFFANIE SANTIAGO MD Discharge Date: 01/10/20 - Discharge Diagnosis (1) Achalasia of esophagus Is this a current diagnosis for this admission?: Yes (2) Protein-calorie undernutrition Is this a current diagnosis for this admission?: Yes (3) Undernutrition Is this a current diagnosis for this admission?: Yes (4) Dehydration Is this a current diagnosis for this admission?: Yes - Additional Information Discharge Diet: As Tolerated, Regular, Tube Feeding (Comments) Discharge Activity: Activity As Tolerated Referrals: BALDO MADRID MD [ACTIVE STAFF] - 01/14/20 10:00 am () TIFFANIE SANTIAGO MD [Primary Care Provider] - 01/16/20 10:45 am Home Medications: RX: Levothyroxine Sodium [Synthroid] 125 mcg PO Q6AM 10/12/12 RX: Buspirone HCl 30 mg PO Q12 10/28/17 RX: Dexlansoprazole [Dexilant 60 mg Capsule] 60 mg PO Q6AM 10/28/17 RX: Dextroamphetamine/Amphetamine [Adderall XR 20 mg Capsule] 40 mg PO QAM 10/28/17 RX: Gabapentin 600 mg PO Q8HP PRN 10/28/17 RX: Zolpidem Tartrate [Ambien] 10 mg PO HSP PRN 10/28/17 RX: Alprazolam 0.25 mg PO BIDP PRN 10/26/19 RX: Amitriptyline HCl [Elavil 25 mg Tablet] 50 mg PO QHS MDD 100MG 10/26/19 RX: Tiotropium [place] [Spiriva Handihaler 5 Cap/Kit (18 Mcg/Cap)] 1 cap IH DAILY 10/26/19 RX: Albuterol Sulfate [Proair HFA Inhalation Aerosol 8.5 gm MDI] 2 puff IH Q6HP PRN 01/08/20 RX: Amoxicillin/Potassium Clav [Augmentin 875-125 Tablet] 1 tab PO Q12 01/08/20 RX: Hydroxyzine Pamoate [Vistaril 25 mg Capsule] 25 mg PO DAILY MDD 75MG 01/08/20 RX: Ibuprofen [Motrin 800 mg Tablet] 80 mg PO Q8HP PRN 01/08/20 RX: Umeclidinium Brm/Vilanterol Tr [Anoro Ellipta 62.5-25 Mcg INH] 1 puff IH DAILY 01/08/20 History of Present Illiness History of Present Illness: SHAR SANCHEZ is a 59 year old female, she has a history of COPD, malignant neoplasm of the lung status post left lower lobe lobectomy, history of esophageal stricture with multiple dilation procedure of the esophagus, patient has been progressively losing weight, she is not able to keep food down, the body mass index is 16, she has had multiple upper endoscopy done, she had a barium swallow done on 09/10/2019 that showed tortuosity of the proximal esophagus to the right at the thoracic inlet adjacent to a radiopaque density in the upper mediastinum also found was chronic dilatation of the distal esophagus. She was admitted to the hospital because of severe dehydration inadequate intake. I spoke with Dr. Madrid, GI surgeon, he recommended that patient should have Dobbhoff feeding tube Hospital Course Hospital Course: Patient was admitted because of dehydration and malnutrition the barium swallow that was done in August suggest dilated distal esophagus. Patient is not able to keep food down I consulted Dr. Madrid recommend outpatient she has a feeding tube with dobbhoff.This was done by interventional radiology under fluoroscopy. She also received IV fluid therapy, she was seen by dietitian [facility] 1.5 was commended for the tube feeding Physical Exam Vital Signs: Temp Pulse Resp BP Pulse Ox 97.5 F 67 16 132/68 H 100 01/10/20 15:57 01/10/20 15:57 01/10/20 15:57 01/10/20 15:57 01/10/20 15:57 Intake & Output 01/09/20 01/10/20 01/11/20 06:59 06:59 06:59 Intake Total 1260 2773 1950 Balance 1260 2773 1950 Weight 48.2 kg 51.7 kg 51.7 kg General appearance: PRESENT: no acute distress, thin Eye exam: PRESENT: PERRLA Respiratory exam: PRESENT: clear to auscultation walter Cardiovascular exam: PRESENT: +S1, +S2 GI/Abdominal exam: PRESENT: soft Results Laboratory Results: WBC 9.5 10^3/uL (4.0-10.5) 01/08/20 18:40 RBC 4.33 10^6/uL (3.72-5.28) 01/08/20 18:40 Hgb 12.2 g/dL (12.0-15.5) 01/08/20 18:40 Hct 36.1 % (36.0-47.0) 01/08/20 18:40 MCV 83 fl (80-97) 01/08/20 18:40 MCH 28.0 pg (27.0-33.4) 01/08/20 18:40 MCHC 33.7 g/dL (32.0-36.0) 01/08/20 18:40 RDW 15.1 % (11.5-14.0) H 01/08/20 18:40 Plt Count 365 10^3/uL (150-450) 01/08/20 18:40 Sodium 136.8 mmol/L (137-145) L 01/08/20 18:40 Potassium 4.4 mmol/L (3.6-5.0) 01/08/20 18:40 Chloride 103 mmol/L (98-107) 01/08/20 18:40 Carbon Dioxide 27 mmol/L (22-30) 01/08/20 18:40 Anion Gap 7 (5-19) 01/08/20 18:40 BUN 17 mg/dL (7-20) 01/08/20 18:40 Creatinine 0.54 mg/dL (0.52-1.25) 01/08/20 18:40 Est GFR ( Amer) > 60 (>60) 01/08/20 18:40 Est GFR (MDRD) Non-Af > 60 (>60) 01/08/20 18:40 Glucose 72 mg/dL (75-110) L 01/08/20 18:40 Calcium 10.1 mg/dL (8.4-10.2) 01/08/20 18:40 Total Bilirubin 0.4 mg/dL (0.2-1.3) 01/08/20 18:40 Direct Bilirubin 0.0 mg/dL (0.0-0.4) 01/08/20 18:40 Neonat Total Bilirubin Not Reportable 01/08/20 18:40 Neonat Direct Bilirubin Not Reportable 01/08/20 18:40 Neonat Indirect Bili Not Reportable 01/08/20 18:40 AST 23 U/L (14-36) 01/08/20 18:40 ALT 16 U/L (<35) 01/08/20 18:40 Alkaline Phosphatase 89 U/L (38-126) 01/08/20 18:40 Total Protein 7.2 g/dL (6.3-8.2) 01/08/20 18:40 Albumin 4.4 g/dL (3.5-5.0) 01/08/20 18:40 TSH 3.42 uIU/mL (0.47-4.68) 01/08/20 18:40 Free T4 1.11 ng/dL (0.78-2.19) 01/08/20 18:40 Urine Color YELLOW 01/08/20 18:20 Urine Appearance SLIGHTLY-CLOUDY 01/08/20 18:20 Urine pH 6.0 (5.0-9.0) 01/08/20 18:20 Ur Specific [place] 1.023 01/08/20 18:20 Urine Protein 30 mg/dL (NEGATIVE) H 01/08/20 18:20 Urine Glucose (UA) NEGATIVE mg/dL (NEGATIVE) 01/08/20 18:20 Urine Ketones NEGATIVE mg/dL (NEGATIVE) 01/08/20 18:20 Urine Blood MODERATE (NEGATIVE) H 01/08/20 18:20 Urine Nitrite NEGATIVE (NEGATIVE) 01/08/20 18:20 Urine Bilirubin NEGATIVE (NEGATIVE) 01/08/20 18:20 Urine Urobilinogen NEGATIVE mg/dL (<2.0) 01/08/20 18:20 Ur Leukocyte Esterase TRACE (NEGATIVE) H 01/08/20 18:20 Urine WBC (Auto) 4 /HPF 01/08/20 18:20 Urine RBC (Auto) 102 /HPF 01/08/20 18:20 Squamous Epi Cells Auto 8 /HPF 01/08/20 18:20 Urine Mucus (Auto) MANY /LPF 01/08/20 18:20 Urine Ascorbic Acid NEGATIVE (NEGATIVE) 01/08/20 18:20 Impressions: Esophagus X-Ray 01/09/20 00:00 IMPRESSION: 1. ESOPHAGEAL DYSMOTILITY 2. TORTUOSITY TO THE RIGHT, OF THE PROXIMAL ESOPHAGUS AT THE THORACIC INLET, AGAIN SEEN AND IS UNCHANGED FROM PREVIOUS STUDY. 3. SMALL HIATAL HERNIA WITH GASTROESOPHAGEAL REFLUX. Gastrostomy Tube Placement 01/09/20 00:00 IMPRESSION: Successful fluoroscopic guided placement of a NJ tube. Guidance Fluoroscopy 01/09/20 00:00 IMPRESSION: Successful fluoroscopic guided placement of a NJ tube. Stroke Is this a Stroke Patient?: No Acute Heart Failure - Is this a Heart Failure Patient?: No
== END 2020-01-10 18:30 | disposition home health service (06) ==
LOC: 5 17:30 → INTOOBSV 17:30
PROVIDERS: ADMIT Internal Medicine; ATTEND Internal Medicine
DX: K22.0 Achalasia of cardia (principal); E43 Unspecified severe protein-calorie malnutrition; E86.0 Dehydration; M19.90 Unspecified osteoarthritis, unspecified site; J44.9 Chronic obstructive pulmonary disease, unspecified; K21.9 Gastro-esophageal reflux disease without esophagitis; F17.210 Nicotine dependence, cigarettes, uncomplicated; F90.9 Attention-deficit hyperactivity disorder, unspecified type; R59.1 Generalized enlarged lymph nodes; M40.209 Unspecified kyphosis, site unspecified; K44.9 Diaphragmatic hernia without obstruction or gangrene; Z79.899 Other long term (current) drug therapy; Z85.118 Personal history of other malignant neoplasm of bronchus and lung; Z90.2 Acquired absence of lung [part of]; Z68.1 Body mass index [BMI] 19.9 or less, adult; Z90.49 Acquired absence of other specified parts of digestive tract
CPT/HCPCS: 36415; 84439; 84443; 85027; 80076; 80048; 81001; 74220; 74340; 44500; G0378 ×2; G0379; A9270 ×11; J7042 ×2; J3490 ×3

== ENCOUNTER → 2020-01-21 | Outpatient (CLI) | payer MEDICARE, MEDICAID | LOC: RAD 14:36 | PROVIDERS: ATTEND Internal Medicine | DX: E46 Unspecified protein-calorie malnutrition (principal) ==